=== PATIENT | male | born 1975 | race Caucasian/White ===

== ENCOUNTER 2022-06-20 12:35 | Emergency (ER) | payer OTHER, SELFPAY ==
[2022-06-20 12:51] VITALS: BP 202/127; PULSE 96; RESP 18; TEMP 37.1; O2SAT 97; BMI 46.7
--- NOTE | 2022-06-20 13:08 | CRLHL7_ITS ---
For Patients: As a result of the Century Cures Act, medical imaging exams and procedure reports are released immediately into your electronic medical record. You may view this report before your referring provider. If you have questions, please contact your health care provider. INDICATION: Left calf pain and swelling. TECHNIQUE: Ultrasound venous duplex lower left extremity. Compression venous exam was performed using slater-scale, color Doppler, and spectral Doppler analysis. COMPARISON: No prior. FINDINGS: DVT is present within the left femoral, popliteal, posterior tibial, peroneal and gastrocnemius veins. Superficial thrombus is present within the small saphenous vein more proximally. Left greater saphenous vein is patent. Contralateral right common femoral vein is patent. IMPRESSION: 1. DVT within the left femoral, popliteal, posterior tibial, peroneal and gastrocnemius veins. 2. Superficial thrombus within the left small saphenous vein - The diagnostic technologist discussed the findings with Dr. Allison following the conclusion of the study on 06/20/2022. Dictated by Toi Roper MD @ 06/20/2022 2:18:34 PM Dictated by: Toi Roper MD @ 06/20/2022 14:18:46 (Electronically Signed)
--- NOTE | 2022-06-20 14:34 | ED.GENADULT ---
HPI - General Adult General Chief complaint: Extremity Pain/Injury, Lower Stated complaint: LT calf pain Time Seen by Provider: 06/20/22 14:05 History of Present Illness HPI narrative: This 46-year-old male comes in with left leg pain and swelling. He states that this occurred about a week ago after he went for 2 or 3 minutes on a treadmill. He did not have any injury event and has not had any recent surgery. He has not had any prior symptoms or evidence of blood clot. He does not report chest pain or shortness of breath. Related Data Previous Rx's Medication Instructions Recorded apixaban 5 mg (74 tabs) tablets in See Rx Instructions PO .COMPLEX 06/20/22 a dose pack (Panizon DVT-PE Treat #74 ea 30D Start) Allergies Allergy/AdvReac Type Severity Reaction Status Date / Time general anesthesia Allergy malignant Uncoded 06/20/22 12:51 hypothermia Review of Systems Status of ROS: Reports: 10 or more systems reviewed and unremarkable except as noted in History and below Narrative: Constitutional: No fevers, no weight gain or loss. Eyes: No discharge. No vision changes. HENT: No congestion, no sore throat, no ear pain. Cardiovascular: No chest pain, no palpitations. Respiratory: No shortness of breath, no wheezes, no cough. Gastrointestinal: No abdominal pain, no vomiting, no diarrhea. Genitourinary: No dysuria, no hematuria. Musculoskeletal: Normal range of motion. Left leg swelling and pain. Skin: No rashes, no pruritis. Neurological: No dizziness, weakness, sensory change, speech change. Endo/Heme/Allergies: No bruising or bleeding. No polydipsia. Pysch: no suicidality, no anxiety, no insomnia. All other systems reviewed and are negative. Exam Narrative: Exam Narrative: Constitutional: Well-developed, well-nourished, no acute distress. HEENT: Normocephalic, atraumatic. Neck: Normal range of motion. Nontender. Supple. Heart: Regular. No murmurs. Normal rate. Intact distal pulses. Lungs: Clear to auscultation. No chest discomfort. No wheezes, rhonchi, or rales. Abdomen: Normal bowel sounds. Nontender. No rebound tenderness. Genitalia: Deferred. Back: No midline tenderness. Normal range of motion. Extremities: Normal range of motion. No injury. Left calf is larger compared to right with some erythema. Diffuse pain throughout the whole left leg. Skin: Intact. No rash. Warm. No erythema or pallor. Neurologic: No altered sensation. No weakness. Alert and oriented. Psychiatric: No suicidality. No anxiety or depression. No insomnia. Nursing notes and vitals signs are reviewed. Const: Vital Signs, click to edit/add: Vital Signs - 24 hr 06/20/22 12:51 Temperature 98.7 F Pulse Rate [Right Pulse Oximeter] 96 Respiratory Rate 18 Blood Pressure [Ri ght Upper Arm] 202/127 H Pulse Oximetry 97 Oxygen Delivery Me thod Room Air Course Vital Signs Vital signs: Initial Vital Signs Temperature 98.7 F 06/20/22 12:51 Temperature Source Temporal Artery Scan 06/20/22 12:51 Pulse Rate 96 06/20/22 12:51 Respiratory Rate 18 06/20/22 12:51 Blood Pressure 202/127 H 06/20/22 12:51 Blood Pressure Mean 152 06/20/22 12:51 Blood Pressure Position Sitting 06/20/22 12:51 Pulse Oximetry 97 06/20/22 12:51 Oxygen Delivery Method 06/20/22 12:51 Vital Signs Temperature 98.7 F 06/20/22 12:51 Pulse Rate 96 06/20/22 12:51 Respiratory Rate 18 06/20/22 12:51 Blood Pressure 202/127 H 06/20/22 12:51 Pulse Oximetry 97 06/20/22 12:51 Oxygen Delivery Method 06/20/22 12:51 Temperature 98.7 F 06/20/22 12:51 Pulse Rate 96 06/20/22 12:51 Respiratory Rate 18 06/20/22 12:51 Blood Pressure 202/127 H 06/20/22 12:51 Pulse Oximetry 97 06/20/22 12:51 Oxygen Delivery Method 06/20/22 12:51 Medical Decision Making MDM Narrative Medical decision making narrative: This patient comes in with left leg pain and swelling. A ultrasound of the left lower extremity does reveal occlusive clot from the groin down to his calf. He has normal vital signs except for elevated blood pressure. He does not report any chest pain or shortness of breath. I did discuss the role of CT imaging and in a process of shared decision making this test was declined. He did have lab draws to check for hypercoagulable state including Leiden factor 5, protein S and C, prothrombin gene mutation, and anti thrombin. These results are pending. The patient received an oral dose of Eliquis 10 mg and a prescription for the Eliquis starter pack. I advised him to follow-up with his primary physician or return if worsening symptoms occur. Discharge Plan Discharge Clinical Impression: Deep venous thrombosis Patient Disposition: Home, Self-Care Condition: Unchanged Additional Instructions: Take medication as prescribed. Follow up with MD within a few weeks. Return if worsening symptoms occur. Prescriptions: New Eliquis DVT-PE Treat 30D Start 5 mg (74 tabs) tablets,dose pack See Rx Instructions PO .COMPLEX Qty: 74 0RF Rx Instructions: orally per package directions Follow Up/Referrals: Rajesh Iverson MD [Primary Care Provider] - Stand Alone Forms: Michael Bieker Info Instructions
[2022-06-20] MEDS: APIXABAN 5 MG TABLET 10 MG PO (15:22)
[2022-06-23 15:12] LABS: Protein C Functional 129 % (83-168); Protein S Functional 133 % (66-143)
[2022-06-23 16:44] LABS: Antithrombin, Enzymatic 104 % (76-128)
[2022-06-25 15:35] LABS: FACV Specimen Whole Blood; Factor V Leiden (F5) Mutation Negative
[2022-06-25 19:55] LABS: PT PCR Specimen Whole Blood; Prothrombin(F2)G20210A Variant Negative
== END 2022-06-20 15:16 | disposition home or self-care (01) ==
PROVIDERS: Emergency Provider Emergency Medicine Emergency Medical Services; PCP Family Medicine
DX: I82.409 Acute embolism and thrombosis of unspecified deep veins of unspecified lower extremity (principal)
CPT/HCPCS: 36415; 81240; 81241; 85300; 85303; 85306; 93971; 99284; A9270

== ENCOUNTER 2022-07-16 09:05 | Outpatient (CLI) | payer OTHER, SELFPAY | END 2022-07-16 09:06 | disposition home or self-care (01) | LOC: NFLDREF 07-17 07:59 | PROVIDERS: PCP Family Medicine; Referring Provider Family Medicine; Visit Provider Family Medicine | DX: I10 Essential (primary) hypertension (principal); Z13.6 Encounter for screening for cardiovascular disorders | CPT/HCPCS: 80048; 80061 ==

== ENCOUNTER 2025-02-04 13:29 | Emergency (ER) | payer OTHER, SELFPAY ==
--- OUTSIDE RECORDS SUMMARY | 2025-02-01 09:20 | XMS_ITS | Encounter Summary ---
Author Organization [employer] [facility] [facility] Address [address] [place] [address] Care Team Providers Care Transfer Table Operator Helper Name Role Phone Unavailable Primary Care Provider Unavailabl e Reason for Referral * Procedure/Equipment (Routine) - Incomplete Specialty Diagnoses / Procedures Referred By Contac t Referred To Contact Diagnoses Arthralgia of right ankle Procedures XR Ankle Rt 3 Views Rodger Bob DO [address] [place] [address] [place] [address] Phone: tel: fax: Referral ID Status Reason Start Date Expiration Date V isits Requested Visits Authorized [id number] Incomplete 02/01/2025 05/03/2026 1 1 Reason for Visit * Reason Comments ANKLE PAIN Right ankle pain, re dness, swelling, started 01/31/25, no trauma Encounter Details Date Type Department Care Team (Late st Contact Info) Description 02/01/2025 9:20 AM CDT Office Visit [facility] [address] [place] [address] [place] [address] Rodger Bob DO 8100 [facility] [place] [address] Arthralgia of right ankle (Primary Dx); Right [...] 9:20 AM CDT Thank you for choosing [facility] for your health care visit today. If you have any questions regarding your visit or next steps, please contact us at [phone]. Rodger Bob, Medication Requests: Prescriptions are filled on Weekdays before 3:00PM For all medication refills: Request a refill using [employer] or contact your Pharmacy Paperwork Requests: FMLA or disability paperwork can be faxed to: [phone] Please allow 7-10 business days for completion of all paperwork. JOSE MANUEL Worker's Compensation Services: E-mail Address: [email or web address] What is Know Your Cost? Know Your Cost is a service for patients and patient/members to call and receive personalized cost information and estimates across our care group. The phone number is (COST) Tuesday - Tuesday 8 AM to 5 PM To request copies of your medical records, call: [phone] (option 4) Diagnosis: R ankle cellulitis vs [...] PM CDT Appointment [facility] [address] [place] [address] Rodger Bob DO [address] [place], [place] [address] [address] documented as of this encounter Procedures Procedure [...] - 7.2 mg/dL 02/04/2025 11:38 AM T [facility] Blood Venipuncture / Unknown 02/01/2025 10:04 AM CDT 02/01/2025 10:17 AM CDT us Kenny Abdul DO LAB_1 Final Result [facility] CLIA: [id number] [address] * (ABNORMAL) Complete Blood Count-W/Diff (02/01/2025 10:04 AM CDT) WBC 5.3 3.5 - 10.5 x10(9)/L 02/01/2025 10:55 AM [facility] RBC 5.46 4.32 - 5.72 x10(12)/L 02/01/2025 10:55 AM [facility] Hemoglobin 15.4 13.5 - 17.5 g/dL 02/01/2025 10:55 AM [facility] HCT 45.3 38.8 - 50.0 % 02/01/2025 10:55 AM [facility] MCV 83.0 80.0 - 100.0 fL 02/01/2025 10:55 AM [facility] MCH 28.2 27.6 - 33.3 pg 02/01/2025 10:55 AM [facility] MCHC 34.0 31.5 - 35.2 g/dL 02/01/2025 10:55 AM [facility] RDW 12.3 11.9 - 15.5 % 02/01/2025 10:55 AM [facility] Platelets 232 150 - 450 x10(9)/L 02/01/2025 10:55 AM [facility] Automated NRBC 0 <=0 /100 WBC 02/01/2025 10:55 AM [facility] Neutrophil Absolute 3.9 1.7 - 7.0 10(9)/L 02/01/2025 10:55 AM [facility] Lymphocyte Absolute 0.8(L) 1.0 - 4.8 10(9)/L 02/01/2025 10:55 AM [facility] Monocyte Absolute 0.5 0.2 - 0.9 10(9)/L 02/01/2025 10:55 AM [facility] Eosinophil Absolute 0.1 0.0 - 0.5 10(9)/L 02/01/2025 10:55 AM [facility] Basophil Absolute 0.0 0.0 - 0.3 10(9)/L 02/01/2025 10:55 AM [facility] Immature Granulocyte % 0.2 0.0 - 0.5 % 02/01/2025 10:55 AM [facility] Blood Venipuncture / Unknown 02/01/2025 10:04 AM CDT 02/01/2025 10:17 AM CDT us Soares G Rice DO LAB_1 Final Result [facility] CLIA: [id number] [address] * Sedimentation Rate (ESR) (02/01/2025 10:04 AM CDT) [facility] Sedimentation Rate 8 0 - 15 mm/hr 02/01/2025 11:34 AM T [facility] Blood Venipuncture / Unknown 02/01/2025 10:04 AM CDT 02/01/2025 10:17 AM CDT us Soares G Rice DO LAB_1 Final Result [facility] CLIA: [id number] 6500 [place] [address], [facility] * (ABNORMAL) Comp Metabolic Panel (02/01/2025 10:04 AM [facility]) Sodium 140 136 - 145 mmol/L 02/01/2025 11:18 AM [facility] Potassium 3.7 3.5 - 5.1 mmol/L 02/01/2025 11:18 AM [facility] Chloride 109 98 - 109 mmol/L 02/01/2025 11:18 AM [facility] CO2 22 20 - 29 mmol/L 02/01/2025 11:18 AM [facility] Anion Gap 9 6 - 16 mmol/L 02/01/2025 11:18 AM [facility] Calcium 9.3 8.4 - 10.4 mg/dL 02/01/2025 11:18 AM [facility] BUN 9 7 - 26 mg/dL 02/01/2025 11:18 AM [facility] Creatinine 0.72(L) 0.73 - 1.18 mg/dL 02/01/2025 11:18 AM [facility] Alkaline Phosphatase 51 40 - 150 U/L 02/01/2025 11:18 AM [facility] AST (SGOT) 24 16 - 46 U/L 02/01/2025 11:18 AM [facility] ALT (SGPT) 27 0 - 55 U/L 02/01/2025 11:18 AM [facility] Bilirubin, Total 0.8 0.2 - 1.2 mg/dL 02/01/2025 11:18 AM [facility] Protein, Total 7.2 6.4 - 8.3 g/dL 02/01/2025 11:18 AM [facility] Albumin 4.1 3.5 - 5.0 g/dL 02/01/2025 11:18 AM [facility] Glucose 92 70 - 100 mg/dL 02/01/2025 11:18 AM [facility] Comment:The given reference range is for the fasting state. Non-fasting reference range for glucose is 70 - 180 mg/dL. GFR, Estimated >60 >60 mL/min/1.7 3m2 02/01/2025 11:18 AM CDT [facility] Hours Fasting 2,130.0 8 - 12 Hours 02/01/2025 11:18 AM CDT [facility] Comment:01/31/2025 Blood Venipuncture / Unknown 02/01/2025 10:04 AM CDT 02/01/2025 10:17 AM CDT us Rodger Bob DO LAB_1 Final Result [facility] CLIA: [id number] [address] [employer] [address] * XR Ankle Rt 3 Views [...]
--- OUTSIDE RECORDS SUMMARY | 2025-02-01 09:35 | XMS_ITS | Encounter Summary ---
Author Organization [facility] Address [address] [place] [address] Care Team Providers Care Search Engine Marketing Specialist Name Role Phone Unavailable Primary Care Provider Unavailabl e Reason for Visit * Procedure/Equipment (Routine) - Incomplete Specialty Diagnoses / Procedures Referred By Contac t Referred To Contact Diagnoses Arthralgia of right ankle Procedures XR Ankle Rt 3 Views Rodger Bob DO [address] [place] [address] [place] [address] Phone: tel: fax: Referral ID Status Reason Start Date Expiration Date V isits Requested Visits Authorized [id number] Incomplete 02/01/2025 05/03/2026 1 1 Encounter Details Date Type Department Care Team (Late st Contact Info) Description 02/01/2025 9:35 AM CDT Ancillary Procedure [facility] [address] [place] [address] Rodger Bob DO [address] [facility] [place] [address] Arthralgia of right ankle Social History Tobacco Use Types Packs/Day Years Used Date Smoking Tobacco: Never Sex and Gender Information Value Date Recorded Sex Assigned at Not on file Legal Sex Male 5:34 AM CDT Gender Identity Not on file Sexual Orientation Not on file documented as of this encounter Plan of Treatment Upcoming Encounters Date Type Department Care Team (Late st Contact Info) Description 02/08/2025 1:30 PM CDT Appointment [facility] [address] [place] [address] Rodger Bob DO [address] [facility] [address] [place], [place] [address] documented as of this encounter Procedures Procedure [...]
--- OUTSIDE RECORDS SUMMARY | 2025-02-04 13:32 | XMS_ITS | Encounter Summary ---
Author Organization [employer] Address [address] [place] [address] Care Team Providers Care Skip Load Driver Name Role Phone Unavailable Primary Care Provider Unavailabl e Reason for Visit * Reason Comments RESULTS, TEST Encounter Details Date Type Department Care Team (Late st Contact Info) Description 02/01/2025 Telephone [facility] [address] [address] Rodger Bob, DO [address] [place] [address] RESULTS, TEST Social History Tobacco Use Types Packs/Day Years Used Date Smoking Tobacco: Never Sex and Gender Information Value Date Recorded Sex Assigned at Not on file Legal Sex Male 5:34 AM CDT Gender Identity Not on file Sexual Orientation Not on file documented as of this encounter Progress Notes * Deedee Wells RN - 02/04/2025 11:24 AM CDTAddended by: DEEDEE WELLS on: 02/04/2025 11:24 AM Modules accepted: Orders documented in this encounter Nursing Notes * Deedee Wells RN - 02/04/2025 11:55 AM CDT Images from the original note were not included. Uric acid level is normal. Tariq was informed of this. Pt to f/u in one week if pain and swelling of right ankle hasn't subsided. Enmanuel;t has been made for 02/08/2025 @ [address] Bob at the [facility]. Also, Pt understands that if he should develop an oral temperature greater than 100. 4 degrees, have increased swelling, redness, warmth to touch or increased pain, to come back in the our AIC/ER. Uric Acid (Unit Collect) Order: [id number] Status: Final result Dx: Pain and swelling of right ankle Test Result Released: Yes (not seen) Component Ref Range & Units 3 d ago Uric Acid 3.5 - 7.2 mg/dL 4.5 Resulting Agency [facility] Specimen Collected: 02/01/25 10:04 Last Resulted: 02/04/25 11:38 * Deedee Wells RN - 02/04/2025 11:23 AM CDT [facility] T[facility] spoke with Jaimie at the [facility]. They are able to add the uric acid lab to the other labs he had done on 02/01/2025. They keep blood for 5 days from when drawn. Will wait for the lab results. * Deedee Wells RN - 02/04/2025 10:[address] Bob is in house on 02/08/2025. Pt RCTC today stating the swelling has not gone down and pain is the same. Labs that were drawn were wnl. Pt questions why a uric acid level wasn't drawn as this father and grandfather both have gouty arthritis. May underwriter place this order?Advise. Pt understands that if he should develop an oral temperature greater than 100. 4 degrees, have increased swelling, redness, warmth to touch or increased pain, to come back in the our AIC/ER. 02/01/2025 Assessment: ICD-10-CM 1. Arthralgia of right ankle [...] [facility] * Danielle Agosto - 02/04/2025 10:04 AM CDT Patient calling back. Swelling has not gone down and pain is the same. * Olga Smith ATC - 02/01/2025 12:59 PM CDT LMTCB regarding results of labs and future plan. -No infection -Continue Mobic -F/u 7-10 days documented in this encounter Plan of Treatment Upcoming Encounters Date Type Department Care Team (Late st Contact Info) Description 02/08/2025 1:30 PM CDT Appointment [facility] [place] [address] [place], [place] [address] Rodger Bob DO [address] [facility] [place] [id number] documented as of this encounter Results * Uric Acid (Unit Collect) (02/01/2025 10:04 AM CDT) Uric Acid 4.5 3.5 - 7.2 mg/dL 02/04/2025 11:38 AM CDT [facility] Blood Venipuncture / Unknown 02/01/2025 10:04 AM CDT 02/01/2025 10:17 AM CDT us Kenny Abdul DO LAB_1 Final Result [facility] CLIA: [id number] [address] [place] [address], [facility] documented in this encounter Visit Diagnoses Diagnosis Pain and swelling of right ankle- Primary documented in this encounter
--- OUTSIDE RECORDS SUMMARY | 2025-02-04 13:32 | XMS_ITS | Clinical Summary ---
Author Organization [employer] Address [address] [place] [address] Care Team Providers Care Lock Master Name Role Phone Unavailable Primary Care Provider Unavailabl e Source Comments You are receiving this document as you are listed as the primary care provider,follow-up provider, or the patient has been referred to you for consultation.This is in compliance with the Medicare and[facility] EHR Incentive Program,which states Providers who transition their patient to another setting of careor provider of care or refers their patient to another provider of care shouldprovide summary care record for each transition of care or referral. [employer] Allergies Active Allergy Reactions Criticality Noted Date Comments Other 01/21/2008 PN: LW Other1: -Anectine- Medications unknown medication Indications: PN: 8 Active methylPREDNISolon e (MEDROL 21 TABLET DOSEPACK) 4 MG tabletIndications :Right lumbar radiculopathy Follow package directions 21 Tablet 5 Active Additional Information Patient not taking.Reported on 02/01/2025 Meloxicam (MOBIC) 15 MG tabletIndications :Arthralgia of right ankle,Right ankle swelling Take 1 Tablet (15 mg) by mouth daily for 14 days. 14 Tablet 5 025 Active Active Problems Problem Noted Date Diagnosed Date Allergic rhinitis 12/13/2003 Overview (12/15/2016): LW Onset: [id number] ; Rhinitis Allergic NOS Encounters Date Type Department Care Team Description 02/01/2025 9:35 AM CDT Ancillary Procedure [facility] [address] [place] [address] Rodger Bob DO Arthralgia of right ankle 02/01/2025 9:20 AM CDT Office Visit [facility] [place] [address] [place] [address] [place] [address] Rodger Bob DO Arthralgia of right ankle (Primary Dx); Right ankle swelling; Pain and swelling of right ankle 02/01/2025 Telephone [facility] [address] [address] Rodger Bob DO RESULTS, TEST 12/03/2024 Refill [facility] [address] [address] Chandler Denney MD Refill from Last 3 Months Social History Tobacco Use Types Packs/Day Years Used Date Smoking Tobacco: Never Sex and Gender Information Value Date Recorded Sex Assigned at Not on file Legal Sex Male 5:34 AM CDT Gender Identity Not on file Sexual Orientation Not on file Last Filed Vital Signs Vital Sign Reading Time Taken Comments Blood Pressure 147/92 01/21/2008 8:13 AM CDT Pulse 105 01/21/2008 8:13 AM CDT Temperature 36.7 C (98.1 F) 02/01/2025 9:26 AM CDT Respiratory Rate 16 01/21/2008 8:13 AM CDT Oxygen Saturation - - Inhaled Oxygen Concentration - - Weight 158.8 kg (350 lb) 02/01/2025 9:26 AM CDT Height 180.3 cm (5' 11) 02/01/2025 9:26 AM CDT Body Mass Index 48.82 02/01/2025 9:26 AM CDT Plan of Treatment Upcoming Encounters Date Type Department Care Team (Late st Contact Info) Description 02/08/2025 1:30 PM CDT Appointment [facility] [place] [address] [place] [address] [place] [address] Rodger Bob DO [address] [facility] [place] [address] Health Maintenance Due Date Last Done Comments Colon Cancer Screening Plan Due 1977 Hep C Screening (Preventive Services) 1977 HIV Screening (Preventive Services) 1993 Adult Preventive Visit 12/31/1995 DTaP/Tdap/Td Vaccine (1 - Tdap) 1996 HepB Vaccine (1) 1996 Cholesterol 2012 COVID-19 Vaccine (1 - 2023-2 5 season) 2024 Influenza Vaccine (#1) 2024 Zoster/Shingles Vaccine (1 of 2) 12/31/2027 Diabetes Screening- (based o n age and BMI) 02/02/2028 02/01/2025 HepA Vaccine Aged Out No longer eligi ble based on patient's age to complete this topic Hib Vaccine Aged Out No longer eligi ble based on patient's age to complete this topic IPV (Polio) Vaccine Aged Out No longe r eligible based on patient's age to complete this topic MCV4 Vaccine Aged Out No longer eligi ble based on patient's age to complete this topic Meningococcal B Vaccine Aged Out No l onger eligible based on patient's age to complete this topic Pneumococcal Vaccine Aged Out No long er eligible based on patient's age to complete this topic Procedures Procedure Name Priority Date/Time Associated Diagnosis Comments URIC ACID Routine 02/01/2025 10:04 AM CDT Pain and swelling of right ankle COMPLETE BLOOD COUNT-W/DIFF Routine 02/01/2025 10:04 AM CDT Arthralgia of right ankle Right ankle swelling SEDIMENTATION RATE (ESR) Routine 02/01/2025 10:04 AM CDT Arthralgia of right ankle Right ankle swelling COMPREHENSIVE METABOLIC PANEL Routine 02/01/2025 10:04 AM CDT Arthralgia of right ankle Right ankle swelling CBC AND DIFFERENTIAL PANEL Routine 02/01/2025 10:04 AM CDT Arthralgia of right ankle Right ankle swelling XR ANKLE RT 3 VIEWS Routine 02/01/2025 9 :37 AM CDT Arthralgia of right ankle from Last 3 Months Results * (ABNORMAL) Complete Blood Count-W/Diff (02/01/2025 10:04 AM CDT) WBC 5.3 3.5 - 10.5 x10(9)/L 02/01/2025 10:[address] [facility] RBC 5.46 4.32 - 5.72 x10(12)/L 02/01/2025 10:[address] [facility] Hemoglobin 15.4 13.5 - 17.5 g/dL 02/01/2025 10:[address] [facility] HCT 45.3 38.8 - 50.0 % 02/01/2025 10:[address] [facility] MCV 83.0 80.0 - 100.0 fL 02/01/2025 10:[address] [facility] MCH 28.2 27.6 - 33.3 pg 02/01/2025 10:[address] [facility] MCHC 34.0 31.5 - 35.2 g/dL 02/01/2025 10:[address] [facility] RDW 12.3 11.9 - 15.5 % 02/01/2025 10:[address] [facility] Platelets 232 150 - 450 x10(9)/L 02/01/2025 10:[address] [facility] Automated NRBC 0 <=0 /100 WBC 02/01/2025 10:[address] [facility] Neutrophil Absolute 3.9 1.7 - 7.0 10(9)/L 02/01/2025 10:[address] [facility] Lymphocyte Absolute 0.8(L) 1.0 - 4.8 10(9)/L 02/01/2025 10:[address] [facility] Monocyte Absolute 0.5 0.2 - 0.9 10(9)/L 02/01/2025 10:[address] [facility] Eosinophil Absolute 0.1 0.0 - 0.5 10(9)/L 02/01/2025 10:[address] [facility] Basophil Absolute 0.0 0.0 - 0.3 10(9)/L 02/01/2025 10:[address] [facility] Immature Granulocyte % 0.2 0.0 - 0.5 % 02/01/2025 10:[address] [facility] Blood Venipuncture / Unknown 02/01/2025 10:04 AM CDT 02/01/2025 10:17 AM CDT us Rodger Cruz Paulino DO LAB_1 Final Result [facility] CLIA: [id number] [address] * (ABNORMAL) Comp Metabolic Panel (02/01/2025 10:04 AM CDT) Sodium 140 136 - 145 mmol/L 02/01/2025 11:[address] [facility] Potassium 3.7 3.5 - 5.1 mmol/L 02/01/2025 11:[address] [facility] Chloride 109 98 - 109 mmol/L 02/01/2025 11:[address] [facility] CO2 22 20 - 29 mmol/L 02/01/2025 11:[address] [facility] Anion Gap 9 6 - 16 mmol/L 02/01/2025 11:[address] [facility] Calcium 9.3 8.4 - 10.4 mg/dL 02/01/2025 11:[address] [facility] BUN 9 7 - 26 mg/dL 02/01/2025 11:[address] [facility] Creatinine 0.72(L) 0.73 - 1.18 mg/dL 02/01/2025 11:[address] [facility] Alkaline Phosphatase 51 40 - 150 U/L 02/01/2025 11:[address] [facility] AST (SGOT) 24 16 - 46 U/L 02/01/2025 11:[address] [facility] ALT (SGPT) 27 0 - 55 U/L 02/01/2025 11:[address] [facility] Bilirubin, Total 0.8 0.2 - 1.2 mg/dL 02/01/2025 11:[address] [facility] Protein, Total 7.2 6.4 - 8.3 g/dL 02/01/2025 11:[address] [facility] Albumin 4.1 3.5 - 5.0 g/dL 02/01/2025 11:[address] [facility] Glucose 92 70 - 100 mg/dL 02/01/2025 11:[address] [facility] Comment:The given reference range is for the fasting state. Non-fasting reference range for glucose is 70 - 180 mg/dL. GFR, Estimated >60 >60 mL/min/1.7 3m2 02/01/2025 11:[address] [facility] Hours Fasting 2,130.0 8 - 12 Hours 02/01/2025 11:[address] [facility] Comment:01/31/2025 Blood Venipuncture / Unknown 02/01/2025 10:04 AM CDT 02/01/2025 10:17 AM CDT us Rodger Bob DO LAB_1 Final Result Performing Organization Address [facility] Co de Phone Number [facility] CLIA: [id number] [facility] [address] * Uric Acid (Unit Collect) (02/01/2025 10:04 AM CDT) Uric Acid 4.5 3.5 - 7.2 mg/dL 02/04/2025 11:38 AM T [facility] Blood Venipuncture / Unknown 02/01/2025 10:04 AM CDT 02/01/2025 10:17 AM CDT us Kenny Abdul DO LAB_1 Final Result Performing Organization Address City/[facility]/ZIP Co de Phone Number [facility] CLIA: [id number] [address] * Sedimentation Rate (ESR) (02/01/2025 10:04 AM CDT) Sedimentation Rate 8 0 - 15 mm/hr 02/01/2025 11:34 AM CDT [facility] Blood Venipuncture / Unknown 02/01/2025 10:04 AM CDT 02/01/2025 10:17 AM CDT Rodger Bob DO LAB_1 Final Result [facility] CLIA: [id number] [address] [place], [place] [address] * XR Ankle Rt 3 Views (02/01/2025 [...] Rodger Bob DO RAD GD Final Result from Last 3 Months Insurance [facility]
--- OUTSIDE RECORDS SUMMARY | 2025-02-04 13:32 | XMS_ITS | Encounter Summary ---
Author Organization [employer] Address [address] [place] [address] Care Team Providers Care Tieing Machine Operator Name Role Phone Unavailable Primary Care Provider Unavailabl e Reason for Visit * Reason Comments Refill Encounter Details Date Type Department Care Team (Late st Contact Info) Description 12/03/2024 Refill [facility] [address] [address] Chandler Denney MD [address] [place] [phone] Refill Social History Tobacco Use Types Packs/Day Years Used Date Smoking Tobacco: Never Sex and Gender Information Value Date Recorded Sex Assigned at Not on file Legal Sex Male 5:34 AM CDT Gender Identity Not on file Sexual Orientation Not on file documented as of this encounter Nursing Notes * Malena Enriquez RN - 12/03/2024 4:16 PM CDT Tanisha Potter, We received a refill request for cyclobenzaprine from your pharmacy. Please advise if you are stilltaking this medication and would like a refill. If so, please provide an update on your current symptoms. I will then route this update and request to the provider and get back to you with their response. If you are no longer taking this medication, please contact your pharmacy to have this medication removed from your medication list. Thank you, RAUL Dooley documented in this encounter Plan of Treatment Upcoming Encounters Date Type Department Care Team (Late st Contact Info) Description 02/08/2025 1:30 PM CDT Appointment [facility] [place] [address] [facility] [address] Rodger Bob DO [address] [facility] [place] [address] documented as of this encounter Visit Diagnoses Diagnosis Right lumbar radiculopathy Thoracic or lumbosacral neuritis or radiculitis, unspecified documented in this encounter
[2025-02-04 13:37] VITALS: BP 194/103; PULSE 109; RESP 18; TEMP 37.1; O2SAT 97; BMI 50.2
--- NOTE | 2025-02-04 14:23 | ED.GENADULT ---
HPI - General Adult General Date Seen: 02/04/25 Chief complaint: Extremity Pain/Injury, Lower Stated complaint: R ankle pain Time Seen by Provider: 02/04/25 14:11 History of Present Illness HPI narrative: Patient is a 49-year-old with underlying obesity and hypertension, who developed right ankle pain and swelling last week. He saw somebody at [facility] on Tuesday, he had a number of blood test done which were unremarkable. He says that he had an x-ray as well which was normal. He says that the person he thought they were told him it could not be gout because his uric acid was normal, but he notes a strong family history of gout and still wonders if it might be that. He has not had fevers or chills, no other systemic complaints. No injury. He does have a history of DVT a couple of years ago but is no longer anticoagulated. He does not have any calf pain. Related Data Home Medications ?Medication ?Instructions ?Recorded ?Confirmed meloxicam 15 mg tablet 15 mg PO DAILY 02/04/25 02/04/25 Previous Rx's ?Medication ?Instructions ?Recorded apixaban 5 mg (74 tabs) tablets in See Rx Instructions PO .COMPLEX 06/20/22 a dose pack (Eliquis DVT-PE Treat #74 ea 30D Start) apixaban 5 mg tablet (Eliquis) 5 mg PO BID #60 tabs 07/02/22 losartan 100 mg tablet 100 mg PO QDAY #90 tabs 07/02/22 chlorthalidone 50 mg tablet 50 mg PO QDAY #90 tabs 05/09/23 Allergies Allergy/AdvReac Type Severity Reaction Status Date / Time lisinopril Allergy Intermediate truncal Verified 07/02/22 07:37 [place] Allergy malignant Uncoded 07/02/22 07:37 hypothermia Review of Systems Status of ROS: Reports: 6 or more systems reviewed and unremarkable except as noted in History and below [facility] Surgical History History of vasectomy (04/14/12) ?Z98.52 - Vasectomy status (ICD-10) History of tonsillectomy (08/04/09) ?Z90.89 - Acquired absence of other organs (ICD-10) Social History Smoking Status: Never smoker Do you use any of these nicotine containing products: None Second hand tobacco smoke exposure: No How often do you have a drink containing alcohol: never How often do you have six or more drinks on one occasion: Never AUDIT-C Alcohol total score: 0 Non-prescribed substance use: denies use service: No Exam Narrative: Exam Narrative: Vital signs reviewed, hypertensive In general, alert, well-appearing man. He is overweight. Extremities: The right lower extremity is notable for effusion at the ankle with some associated erythema particularly medially. No significant warmth. His foot appears normal, dorsalis pedis pulses normal, distal CMS intact. He does not have any tenderness or swelling of the leg more proximally. He tolerates passive range of motion in the ankle reasonably well although he says if I push it too hard it starts to hurt. Active range of motion is more painful. Const: Vital Signs, click to edit/add: Vital Signs - 24 hr 02/04/25 13:37 Temperature 98.8 F Pulse Rate [Pulse Oximeter] 109 H Respiratory Rate 18 Blood Pressure [Ri ght Upper Arm] 194/103 H Pulse Oximetry 97 Oxygen Delivery Me thod Room Air Course Course ED Course: I reviewed his labs from [facility] 2 days ago. His white blood cell count and sed rate were normal at that time. Remainder of his labs were normal as well including a comprehensive metabolic panel. Overall, I think gout is certainly a strong possibility as a cause for his symptoms. I recommended that we try to aspirate the joint and sent some fluid off. Discussed that I cannot entirely rule out infection as a cause for his symptoms. He says that he hates needles and has no interest in having the joint aspirated, in fact he says he printed out his lab results from [facility] so that he would have to have another blood draw. Reviewed with him that the treatment for gout would typically be steroids, which could make an infection worse by blunting his immune response. Nonetheless, he would like to proceed with a trial of that. He understands that if he is worsening at all he should come back right away. He was prescribed meloxicam, he can continue to take that as well as Tylenol. He has a boot at home as well, he did not use it when driving here because he can not drive when it is on, but he does say that he has been wearing it when he is up and around. I would continue that. Based on his exam this does not appear to be consistent with DVT. Vital Signs Vital signs: Initial Vital Signs Temperature 98.8 F 02/04/25 13:37 Temperature Source Temporal Artery Scan 02/04/25 13:37 Pulse Rate 109 H 02/04/25 13:37 Respiratory Rate 18 02/04/25 13:37 Blood Pressure 194/103 H 02/04/25 13:37 Blood Pressure Mean 133 H 02/04/25 13:37 Blood Pressure Position Sitting 02/04/25 13:37 Pulse Oximetry 97 02/04/25 13:37 Oxygen Delivery Method Room Air 02/04/25 13:37 Vital Signs Temperature 98.8 F 02/04/25 13:37 Pulse Rate 109 H 02/04/25 13:37 Respiratory Rate 18 02/04/25 13:37 Blood Pressure 194/103 H 02/04/25 13:37 Pulse Oximetry 97 02/04/25 13:37 Oxygen Delivery Method Room Air 02/04/25 13:37 Temperature 98.8 F 02/04/25 13:37 Pulse Rate 109 H 02/04/25 13:37 Respiratory Rate 18 02/04/25 13:37 Blood Pressure 194/103 H 02/04/25 13:37 Pulse Oximetry 97 02/04/25 13:37 Oxygen Delivery Method Room Air 02/04/25 13:37 Discharge Plan Discharge Clinical Impression: Ankle pain Patient Disposition: Home, Self-Care Condition: Stable Additional Instructions: I suspect her symptoms are due to gout, but as we discussed, we have not ruled out the possibility of infection as a cause of your ankle pain. Without obtaining a sample of joint fluid, it is impossible to entirely no. For now, we have decided to try a course of prednisone and see if you improved. You can continue to take meloxicam as well as Tylenol 1000 mg 3 times daily. If you are worsening on this regimen, you need to come back to the emergency department right away. This would include increasing swelling, increasing pain, increasing redness or temperature greater than 100.4. If you improved but have recurrent episodes, long-term treatment for gout may be indicated, see primary care for ongoing concerns. Prescriptions: No Action Eliquis 5 mg tablet 5 mg PO BID Qty: 60 8RF losartan 100 mg tablet 100 mg PO QDAY Qty: 90 3RF Eliquis DVT-PE Treat 30D Start 5 mg (74 tabs) tablets,dose pack See Rx Instructions PO .COMPLEX Qty: 74 0RF Rx Instructions: orally per package directions meloxicam 15 mg tablet 15 mg PO DAILY chlorthalidone 50 mg tablet 50 mg PO QDAY Qty: 90 0RF Follow Up/Referrals: Rajesh Iverson MD [Primary Care Provider, Family Practice] Stand Alone Forms: [employer] Info Instructions
== END 2025-02-04 15:10 | disposition home or self-care (01) ==
LOC: ED 14:26
PROVIDERS: Emergency Provider Emergency Medicine; PCP Family Medicine
DX: M25.571 Pain in right ankle and joints of right foot (principal)
CPT/HCPCS: 99283; 99284

== ENCOUNTER 2025-02-06 10:12 | Emergency (ER) | payer OTHER, SELFPAY ==
--- OUTSIDE RECORDS SUMMARY | 2025-02-01 09:20 | XMS_ITS | Encounter Summary ---
Author Organization [facility] Address [address] [place] [address] Care Team Providers Care Mooner Name Role Phone Unavailable Primary Care Provider Unavailabl e Reason for Referral * Procedure/Equipment (Routine) - Incomplete Specialty Diagnoses / Procedures Referred By Contac t Referred To Contact Diagnoses Arthralgia of right ankle Procedures XR Ankle Rt 3 Views Rodger Bob DO [address] [place] [address] [place] [address] Phone: tel: fax: Referral ID Status Reason Start Date Expiration Date V isits Requested Visits Authorized [id number] Incomplete 02/01/2025 05/03/2026 1 1 Reason for Visit * Reason Comments ANKLE PAIN Right ankle pain, re dness, swelling, started 01/31/25, no trauma Encounter Details Date Type Department Care Team (Late st Contact Info) Description 02/01/2025 9:20 AM CDT Office Visit [facility] [address] [place] [address] [place] [address] Rodger Bob DO [address] [facility] [place] [address] Arthralgia of right ankle (Primary Dx); Right [...] 9:20 AM CDT Thank you for choosing [facility] for your health care visit today. If you have any questions regarding your visit or next steps, please contact us at [phone]. Rodger Bob, Medication Requests: Prescriptions are filled on Weekdays before 3:00PM For all medication refills: Request a refill using [employer] or contact your Pharmacy Paperwork Requests: FMLA or disability paperwork can be faxed to: [phone] Please allow 7-10 business days for completion of all paperwork. JOSE MANUEL Worker's Compensation Services: E-mail Address: [email or web address] What is Know Your Cost? Know Your Cost is a service for patients and patient/members to call and receive personalized cost information and estimates across our care group. The phone number is (COST) Tuesday - Tuesday 8 AM to 5 PM To request copies of your medical records, call: [phone] (option 4) Diagnosis: R ankle cellulitis vs [...] and was agreeable with no further questions. Rodger Bob DO [facility] documented in this encounter Plan of Treatment Upcoming Encounters Date Type Department Care Team (Late st Contact Info) Description 02/08/2025 1:30 PM CDT Appointment [facility] [address] [place] [address] Rodger Bob DO [address] [place], [place] [address] [address] documented as of this encounter Procedures Procedure [...] 3.5 - 7.2 mg/dL 02/04/2025 11:38 AM T [facility] Blood Venipuncture / Unknown 02/01/2025 10:04 AM CDT 02/01/2025 10:17 AM CDT us Kenny Abdul DO LAB_1 Final Result [facility] CLIA: [id number] [address] * (ABNORMAL) Complete Blood Count-W/Diff (02/01/2025 10:04 AM CDT) WBC 5.3 3.5 - 10.5 x10(9)/L 02/01/2025 10:55 AM [facility] RBC 5.46 4.32 - 5.72 x10(12)/L 02/01/2025 10:55 AM [facility] Hemoglobin 15.4 13.5 - 17.5 g/dL 02/01/2025 10:55 AM [facility] HCT 45.3 38.8 - 50.0 % 02/01/2025 10:55 AM [facility] MCV 83.0 80.0 - 100.0 fL 02/01/2025 10:55 AM [facility] MCH 28.2 27.6 - 33.3 pg 02/01/2025 10:55 AM [facility] MCHC 34.0 31.5 - 35.2 g/dL 02/01/2025 10:55 AM [facility] RDW 12.3 11.9 - 15.5 % 02/01/2025 10:55 AM [facility] Platelets 232 150 - 450 x10(9)/L 02/01/2025 10:55 AM [facility] Automated NRBC 0 <=0 /100 WBC 02/01/2025 10:55 AM [facility] Neutrophil Absolute 3.9 1.7 - 7.0 10(9)/L 02/01/2025 10:55 AM [facility] Lymphocyte Absolute 0.8(L) 1.0 - 4.8 10(9)/L 02/01/2025 10:55 AM [facility] Monocyte Absolute 0.5 0.2 - 0.9 10(9)/L 02/01/2025 10:55 AM [facility] Eosinophil Absolute 0.1 0.0 - 0.5 10(9)/L 02/01/2025 10:55 AM [facility] Basophil Absolute 0.0 0.0 - 0.3 10(9)/L 02/01/2025 10:55 AM [facility] Immature Granulocyte % 0.2 0.0 - 0.5 % 02/01/2025 10:55 AM [facility] Blood Venipuncture / Unknown 02/01/2025 10:04 AM CDT 02/01/2025 10:17 AM CDT us Soares G Rice DO LAB_1 Final Result [facility] CLIA: [id number] [address] * Sedimentation Rate (ESR) (02/01/2025 10:04 AM CDT) [facility] Sedimentation Rate 8 0 - 15 mm/hr 02/01/2025 11:34 AM T [facility] Blood Venipuncture / Unknown 02/01/2025 10:04 AM CDT 02/01/2025 10:17 AM CDT us Soares G Rice DO LAB_1 Final Result [facility] CLIA: [id number] 6500 [place] [address], [facility] * (ABNORMAL) Comp Metabolic Panel (02/01/2025 10:04 AM [facility]) Sodium 140 136 - 145 mmol/L 02/01/2025 11:18 AM [facility] Potassium 3.7 3.5 - 5.1 mmol/L 02/01/2025 11:18 AM [facility] Chloride 109 98 - 109 mmol/L 02/01/2025 11:18 AM [facility] CO2 22 20 - 29 mmol/L 02/01/2025 11:18 AM [facility] Anion Gap 9 6 - 16 mmol/L 02/01/2025 11:18 AM [facility] Calcium 9.3 8.4 - 10.4 mg/dL 02/01/2025 11:18 AM [facility] BUN 9 7 - 26 mg/dL 02/01/2025 11:18 AM [facility] Creatinine 0.72(L) 0.73 - 1.18 mg/dL 02/01/2025 11:18 AM [facility] Alkaline Phosphatase 51 40 - 150 U/L 02/01/2025 11:18 AM [facility] AST (SGOT) 24 16 - 46 U/L 02/01/2025 11:18 AM [facility] ALT (SGPT) 27 0 - 55 U/L 02/01/2025 11:18 AM [facility] Bilirubin, Total 0.8 0.2 - 1.2 mg/dL 02/01/2025 11:18 AM [facility] Protein, Total 7.2 6.4 - 8.3 g/dL 02/01/2025 11:18 AM [facility] Albumin 4.1 3.5 - 5.0 g/dL 02/01/2025 11:18 AM [facility] Glucose 92 70 - 100 mg/dL 02/01/2025 11:18 AM [facility] Comment:The given reference range is for the fasting state. Non-fasting reference range for glucose is 70 - 180 mg/dL. GFR, Estimated >60 >60 mL/min/1.7 3m2 02/01/2025 11:18 AM CDT [facility] Hours Fasting 2,130.0 8 - 12 Hours 02/01/2025 11:18 AM CDT [facility] Comment:01/31/2025 Blood Venipuncture / Unknown 02/01/2025 10:04 AM CDT 02/01/2025 10:17 AM CDT us Rodger Bob DO LAB_1 Final Result [facility] CLIA: [id number] [address] * XR Ankle Rt 3 Views [...]
--- OUTSIDE RECORDS SUMMARY | 2025-02-01 09:35 | XMS_ITS | Encounter Summary ---
Author Organization [facility] Address [address] [place] [address] Care Team Providers Care Maintenance Service Supervisor Name Role Phone Unavailable Primary Care Provider Unavailabl e Reason for Visit * Procedure/Equipment (Routine) - Incomplete Specialty Diagnoses / Procedures Referred By Contac t Referred To Contact Diagnoses Arthralgia of right ankle Procedures XR Ankle Rt 3 Views Rodger Bob DO [address] [place] [address] [place] [address] Phone: tel: fax: Referral ID Status Reason Start Date Expiration Date V isits Requested Visits Authorized [id number] Incomplete 02/01/2025 05/03/2026 1 1 Encounter Details Date Type Department Care Team (Late st Contact Info) Description 02/01/2025 9:35 AM CDT Ancillary Procedure [facility] [address] [place] [address] Rodger Bob DO [address] [facility] [place] [address] Arthralgia of right ankle Social History Tobacco [...] PM CDT Appointment [facility] [place] [address] [place] [address] Rodger Bob DO [address] [facility] [address] [place], [place] [address] documented as of this encounter Procedures Procedure [...]
--- OUTSIDE RECORDS SUMMARY | 2025-02-06 10:15 | XMS_ITS | Clinical Summary ---
Author Organization [employer] Address [address] [place] [address] Care Team Providers Care Stock Counter Name Role Phone Unavailable Primary Care Provider Unavailabl e Source Comments You are receiving this document as you are listed as the primary care provider,follow-up provider, or the patient has been referred to you for consultation.This is in compliance with the Medicare and[facility] EHR Incentive Program,which states Providers who transition their patient to another setting of careor provider of care or refers their patient to another provider of care shouldprovide summary care record for each transition of care or referral. [employer] Allergies Active Allergy Reactions Criticality Noted Date [...] Allergic rhinitis 12/13/2003 Overview (12/15/2016): LW Onset: [id number] ; Rhinitis Allergic NOS Encounters Date Type Department Care Team Description 02/01/2025 9:35 AM CDT Ancillary Procedure [facility] [address] [place] [address] Rodger Bob DO Arthralgia of right ankle 02/01/2025 9:20 AM CDT Office Visit [facility] [place] [address] [place] [address] [place] [address] Rodger Bob DO Arthralgia of right ankle (Primary Dx); Right ankle swelling; Pain and swelling of right ankle 02/01/2025 Telephone [facility] [address] [address] Rodger Bob DO RESULTS, TEST 12/03/2024 Refill [facility] [address] [address] Chandler Denney MD Refill from Last 3 [...] PM CDT Appointment [facility] [place] [address] [place] [address] [place] [address] Rodger Bob DO [address] [facility] [place] [address] Health Maintenance Due Date Last Done Comments [...] 3.5 - 10.5 x10(9)/L 02/01/2025 10:55 AM [facility] RBC 5.46 4.32 - 5.72 x10(12)/L 02/01/2025 10:55 AM [facility] Hemoglobin 15.4 13.5 - 17.5 g/dL 02/01/2025 10:55 AM [facility] HCT 45.3 38.8 - 50.0 % 02/01/2025 10:55 AM [facility] MCV 83.0 80.0 - 100.0 fL 02/01/2025 10:55 AM [facility] MCH 28.2 27.6 - 33.3 pg 02/01/2025 10:55 AM [facility] MCHC 34.0 31.5 - 35.2 g/dL 02/01/2025 10:55 AM [facility] RDW 12.3 11.9 - 15.5 % 02/01/2025 10:55 AM [facility] Platelets 232 150 - 450 x10(9)/L 02/01/2025 10:55 AM [facility] Automated NRBC 0 <=0 /100 WBC 02/01/2025 10:55 AM [facility] Neutrophil Absolute 3.9 1.7 - 7.0 10(9)/L 02/01/2025 10:55 AM [facility] Lymphocyte Absolute 0.8(L) 1.0 - 4.8 10(9)/L 02/01/2025 10:55 AM [facility] Monocyte Absolute 0.5 0.2 - 0.9 10(9)/L 02/01/2025 10:55 AM [facility] Eosinophil Absolute 0.1 0.0 - 0.5 10(9)/L 02/01/2025 10:55 AM [facility] Basophil Absolute 0.0 0.0 - 0.3 10(9)/L 02/01/2025 10:55 AM [facility] Immature Granulocyte % 0.2 0.0 - 0.5 % 02/01/2025 10:55 AM [facility] Blood Venipuncture / Unknown 02/01/2025 10:04 AM CDT 02/01/2025 10:17 AM CDT us Rodger Cruz Paulino DO LAB_1 Final Result [facility] CLIA: [id number] [address] [employer] [address] * (ABNORMAL) Comp Metabolic Panel (02/01/2025 10:04 AM CDT) Sodium 140 136 - 145 mmol/L 02/01/2025 11:18 AM [facility] Potassium 3.7 3.5 - 5.1 mmol/L 02/01/2025 11:18 AM [facility] Chloride 109 98 - 109 mmol/L 02/01/2025 11:18 AM [facility] CO2 22 20 - 29 mmol/L 02/01/2025 11:18 AM [facility] Anion Gap 9 6 - 16 mmol/L 02/01/2025 11:18 AM [facility] Calcium 9.3 8.4 - 10.4 mg/dL 02/01/2025 11:18 AM [facility] BUN 9 7 - 26 mg/dL 02/01/2025 11:18 AM [facility] Creatinine 0.72(L) 0.73 - 1.18 mg/dL 02/01/2025 11:18 AM [facility] Alkaline Phosphatase 51 40 - 150 U/L 02/01/2025 11:18 AM [facility] AST (SGOT) 24 16 - 46 U/L 02/01/2025 11:18 AM [facility] ALT (SGPT) 27 0 - 55 U/L 02/01/2025 11:18 AM [facility] Bilirubin, Total 0.8 0.2 - 1.2 mg/dL 02/01/2025 11:18 AM [facility] Protein, Total 7.2 6.4 - 8.3 g/dL 02/01/2025 11:18 AM [facility] Albumin 4.1 3.5 - 5.0 g/dL 02/01/2025 11:18 AM [facility] Glucose 92 70 - 100 mg/dL 02/01/2025 11:18 AM [facility] Comment:The given reference range is for the fasting state. Non-fasting reference range for glucose is 70 - 180 mg/dL. GFR, Estimated >60 >60 mL/min/1.7 3m2 02/01/2025 11:18 AM [facility] Hours Fasting 2,130.0 8 - 12 Hours 02/01/2025 11:18 AM [facility] Comment:01/31/2025 Blood Venipuncture / Unknown 02/01/2025 10:04 AM CDT 02/01/2025 10:17 AM CDT us Rodger Bob DO LAB_1 Final Result Performing Organization Address [facility] Co de Phone Number [facility] CLIA: [id number] [facility] [address] * Uric Acid (Unit Collect) (02/01/2025 10:04 AM CDT) Uric Acid 4.5 3.5 - 7.2 mg/dL 02/04/2025 11:38 AM T [facility] Blood Venipuncture / Unknown 02/01/2025 10:04 AM CDT 02/01/2025 10:17 AM CDT us Kenny Abdul DO LAB_1 Final Result Performing Organization Address City/[facility]/ZIP Co de Phone Number [facility] CLIA: [id number] [address] * Sedimentation Rate (ESR) (02/01/2025 10:04 AM CDT) Sedimentation Rate 8 0 - 15 mm/hr 02/01/2025 11:34 AM CDT [facility] Blood Venipuncture / Unknown 02/01/2025 10:04 AM CDT 02/01/2025 10:17 AM CDT Rodger Bob DO LAB_1 Final Result [facility] CLIA: [id number] [address] [employer] [place], [place] [address] * XR Ankle Rt 3 Views (02/01/2025 [...] Final Result from Last 3 Months Insurance [facility]
--- OUTSIDE RECORDS SUMMARY | 2025-02-06 10:15 | XMS_ITS | Encounter Summary ---
Author Organization [employer] Address [address] [place] [address] Care Team Providers Care Roll Scale Man Name Role Phone Unavailable Primary Care Provider Unavailabl e Reason for Visit * Reason Comments Refill Encounter Details Date Type Department Care Team (Late st Contact Info) Description 12/03/2024 Refill [facility] [address] [address] Chandler Denney MD [address] [place] [phone] Refill Social History Tobacco Use Types Packs/Day [...] PM CDT Appointment [facility] [place] [address] [facility] [place] [address] Rodger Bob DO [address] [facility] [place] [address] documented as of this encounter Visit Diagnoses Diagnosis Right lumbar radiculopathy Thoracic or lumbosacral neuritis or radiculitis, unspecified documented in this encounter
--- OUTSIDE RECORDS SUMMARY | 2025-02-06 10:15 | XMS_ITS | Encounter Summary ---
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 [facility] at [facility]. Also, Pt understands that if he should develop an oral temperature greater than 100. 4 degrees, have increased swelling, redness, warmth to touch or increased pain, to come back in the our AIC/ER. Uric Acid (Unit Collect) Order: [id number] Status: Final result Dx: Pain and swelling of right ankle Test Result Released: Yes (not seen) Component Ref Range & Units 3 d ago Uric Acid 3.5 - 7.2 mg/dL 4.5 Resulting Agency [facility] Specimen Collected: 02/01/25 10:04 Last Resulted: 02/04/25 11:38 * Deedee Wells RN - 02/04/2025 11:23 AM CDT Finish Painter spoke with Jaimie at the [facility]. They are able to add the [...] and grandfather both have gouty arthritis. May commercial lines underwriter place this order?Advise. Pt understands that [...] PM CDT Appointment [facility] [place] [address] [place], [place] [id number] Rodger Bob DO [address] [facility] [place] [phone] documented as of this encounter Results * Uric Acid (Unit Collect) (02/01/2025 10:04 AM CDT) Uric Acid 4.5 3.5 - 7.2 mg/dL 02/04/2025 11:38 AM CDT [facility] Blood Venipuncture / Unknown 02/01/2025 10:04 AM CDT 02/01/2025 10:17 AM CDT us Kenny Abdul DO LAB_1 Final Result [facility] CLIA: [id number] [address] [place] [address], [facility] documented in this encounter Visit Diagnoses Diagnosis Pain and swelling of right ankle- Primary documented in this encounter
[2025-02-06 10:46] VITALS: BP 180/98; PULSE 104; RESP 16; TEMP 37.3; O2SAT 97; BMI 50.2
--- NOTE | 2025-02-06 13:00 | ED.GENADULT ---
HPI - General Adult General Chief complaint: Extremity Pain/Injury, Lower Stated complaint: R ankle pain Time Seen by Provider: 02/06/25 12:42 History of Present Illness HPI narrative: This 49-year-old male comes in with concern about redness and swelling in his right ankle. He was diagnosed with gout several days ago and has been taking prednisone and states that he is improving. He also reports a prior history of a deep venous thrombosis and is no longer taking anticoagulants. He does not report any pain or swelling in his calf or upper leg. Related Data Home Medications ?Medication ?Instructions ?Recorded ?Confirmed meloxicam 15 mg tablet 15 mg PO DAILY 02/04/25 02/06/25 Held on 02/06/25. Instructions: Pt stopped Previous Rx's ?Medication ?Instructions ?Recorded apixaban 5 mg (74 tabs) tablets in See Rx Instructions PO .COMPLEX 06/20/22 a dose pack (Eliquis DVT-PE Treat #74 ea 30D Start) apixaban 5 mg tablet (Eliquis) 5 mg PO BID #60 tabs 07/02/22 losartan 100 mg tablet 100 mg PO QDAY #90 tabs 07/02/22 chlorthalidone 50 mg tablet 50 mg PO QDAY #90 tabs 05/09/23 chlorthalidone 50 mg tablet 50 mg PO DAILY #30 tabs 02/06/25 indomethacin 50 mg capsule 50 mg PO BID #20 caps 02/06/25 losartan 100 mg tablet 100 mg PO DAILY #30 tabs 02/06/25 Allergies Allergy/AdvReac Type Severity Reaction Status Date / Time lisinopril Allergy Intermediate truncal Verified 02/06/25 10:53 hsieh general anesthesia Allergy malignant Uncoded 07/02/22 07:37 hypothermia Review of Systems Status of ROS: Reports: 10 or more systems reviewed and unremarkable except as noted in History and below Narrative: Constitutional: No fevers, no weight gain or loss. Eyes: No discharge. No vision changes. HENT: No congestion, no sore throat, no ear pain. Cardiovascular: No chest pain, no palpitations. Respiratory: No shortness of breath, no wheezes, no cough. Gastrointestinal: No abdominal pain, no vomiting, no diarrhea. Genitourinary: No dysuria, no hematuria. Musculoskeletal: Normal range of motion. Pain and swelling in the right ankle as described above. Skin: No rashes, no pruritis. Neurological: No dizziness, weakness, sensory change, speech change. Endo/Heme/Allergies: No bruising or bleeding. No polydipsia. Pysch: no suicidality, no anxiety, no insomnia. All other systems reviewed and are negative. [facility] Surgical History History of vasectomy (04/14/12) ?Z98.52 - Vasectomy status (ICD-10) History of tonsillectomy (08/04/09) ?Z90.89 - Acquired absence of other organs (ICD-10) Social History Smoking Status: Never smoker Do you use any of these nicotine containing products: None Second hand tobacco smoke exposure: No How often do you have a drink containing alcohol: never How often do you have six or more drinks on one occasion: Never AUDIT-C Alcohol total score: 0 Non-prescribed substance use: denies use service: No Exam Narrative: Exam Narrative: Constitutional: Well-developed, well-nourished, no acute distress. HEENT: Normocephalic, atraumatic. Neck: Normal range of motion. Nontender. Supple. Heart: Regular. No murmurs. Normal rate. Intact distal pulses. Lungs: Clear to auscultation. No chest discomfort. No wheezes, rhonchi, or rales. Abdomen: Normal bowel sounds. Nontender. No rebound tenderness. Genitalia: Deferred. Back: No midline tenderness. Normal range of motion. Extremities: Right ankle as diffuse swelling with erythema and mild decreased range of motion. Skin: Intact. No rash. Warm. No erythema or pallor. Neurologic: No altered sensation. No weakness. Alert and oriented. Psychiatric: No suicidality. No anxiety or depression. No insomnia. Nursing notes and vitals signs are reviewed. Const: Vital Signs, click to edit/add: Vital Signs - 24 hr 02/06/25 10:46 Temperature 99.2 F Pulse Rate [Pulse Oximeter] 104 H Respiratory Rate 16 Blood Pressure [Ri ght Upper Arm] 180/98 H Pulse Oximetry 97 Course Vital Signs Vital signs: Initial Vital Signs Temperature 99.2 F 02/06/25 10:46 Temperature Source Temporal Artery Scan 02/06/25 10:46 Pulse Rate 104 H 02/06/25 10:46 Respiratory Rate 16 02/06/25 10:46 Blood Pressure 180/98 H 02/06/25 10:46 Blood Pressure Mean 125 H 02/06/25 10:46 Blood Pressure Position Sitting 02/06/25 10:46 Pulse Oximetry 97 02/06/25 10:46 Vital Signs Temperature 99.2 F 02/06/25 10:46 Pulse Rate 104 H 02/06/25 10:46 Respiratory Rate 16 02/06/25 10:46 Blood Pressure 180/98 H 02/06/25 10:46 Pulse Oximetry 97 02/06/25 10:46 Temperature 99.2 F 02/06/25 10:46 Pulse Rate 104 H 02/06/25 10:46 Respiratory Rate 16 02/06/25 10:46 Blood Pressure 180/98 H 02/06/25 10:46 Pulse Oximetry 97 02/06/25 10:46 Medical Decision Making MDM Narrative Medical decision making narrative: This patient has gout in his right ankle and is improving after taking 3 days of prednisone. He has 6 more days of a tapering course of prednisone yet. He reports a history of blood clot but states that these symptoms are quite different. He does not have any pain or swelling in his calves or upper legs. I did state that we can do ultrasound but he is not tripping triggers that raise a concern for deep venous thrombosis. He is okay with no ultrasound study at this time and is aware of signs and symptoms that would indicate and need to return for such. I advised him to continue taking prednisone as prescribed. I also provided a prescription for indomethacin. He is requesting 1 month renewal of his blood pressure medications also. Discharge Plan Discharge Clinical Impression: Gout, Hypertension Patient Disposition: Home, Self-Care Condition: Stable Additional Instructions: Take medication as prescribed. Follow up with MD return if not improving or worsening. Prescriptions: New chlorthalidone 50 mg tablet 50 mg PO DAILY Qty: 30 2RF losartan 100 mg tablet 100 mg PO DAILY Qty: 30 2RF indomethacin 50 mg capsule 50 mg PO BID Qty: 20 0RF Rx Instructions: administer with food or milk No Action Eliquis 5 mg tablet 5 mg PO BID Qty: 60 8RF losartan 100 mg tablet 100 mg PO QDAY Qty: 90 3RF Eliquis DVT-PE Treat 30D Start 5 mg (74 tabs) tablets,dose pack See Rx Instructions PO .COMPLEX Qty: 74 0RF Rx Instructions: orally per package directions meloxicam 15 mg tablet 15 mg PO DAILY chlorthalidone 50 mg tablet 50 mg PO QDAY Qty: 90 0RF Follow Up/Referrals: Rajesh Iverson MD [Primary Care Provider, Family Practice] Stand Alone Forms: [employer] Info Instructions
== END 2025-02-06 13:15 | disposition home or self-care (01) ==
LOC: ED 13:08
PROVIDERS: Emergency Provider Emergency Medicine Emergency Medical Services; PCP Family Medicine
DX: M10.071 Idiopathic gout, right ankle and foot (principal); I10 Essential (primary) hypertension
CPT/HCPCS: 99283; 99284

== ENCOUNTER 2025-02-15 11:38 | Emergency (ER) | payer OTHER, SELFPAY ==
[2025-02-15] VITALS (16 sets, daily range): BP systolic 116–182; BP diastolic 58–93; PULSE 70–104; RESP 12–28; TEMP 36.6; O2SAT 95–96; BMI 47.9
--- NOTE | 2025-02-15 12:07 | ED.GENADULT ---
HPI - General Adult General Chief complaint: Extremity Pain/Injury, Lower Stated complaint: R ankle pain Time Seen by Provider: 02/15/25 12:07 History of Present Illness HPI narrative: Pt reports right ankle symptoms started 02/01. Swelling, pain, redness. Was treated with NSAIDs. Has been seen with our clinic for ongoing concerns of infection. Is ambulatory to triage. Rates pain currently 11/01. 49-year-old man presenting to the emergency department with concern of left ankle pain and swelling. Has had 4 visits since onset of ankle discomfort/pain/swelling/redness beginning 2 weeks ago. No trauma/bite noted. Records indicate diffuse swelling and erythema at initial evaluation. Initially thought to possibly have gout and was initiated on a course of prednisone with dosing boosted briefly toward the end of this course. Completed prednisone taper as of a yesterday. Had also been prescribed a course of indomethacin as well after initial meloxicam. Does take chlorthalidone along with losartan for blood pressure control. Did have an elevated temperature initially but has not been febrile since. X-rays of the right ankle and lab work including uric acid were unremarkable other than demonstrating old high school fracture above the ankle apparently (I suspect distal fibular) at outside facility 10 days ago. No new described trauma. Does have a history of DVT and no longer anticoagulated. Was directed to the emergency department today with concern of ?septic joint?. Hurts in particular to bear weight. Seems a little bit better middle the week but worsened again last couple of days. Has been intermittently wearing a walking boot. Family history with gout. Related Data Home Medications ?Medication ?Instructions ?Recorded ?Confirmed indomethacin 50 mg capsule 50 mg PO BID 02/10/25 02/15/25 Previous Rx's ?Medication ?Instructions ?Recorded chlorthalidone 50 mg tablet 50 mg PO DAILY #30 tabs 02/06/25 losartan 100 mg tablet 100 mg PO DAILY #30 tabs 02/06/25 apixaban 5 mg (74 tabs) tablets in See Rx Instructions PO .COMPLEX 02/15/25 a dose pack #74 ea Allergies Allergy/AdvReac Type Severity Reaction Status Date / Time lisinopril Allergy Intermediate truncal Verified 02/15/25 14:44 hsieh general anesthesia Allergy malignant Uncoded 02/15/25 14:44 hyperthermia Review of Systems Status of ROS: Reports: 6 or more systems reviewed and unremarkable except as noted in History and below PFSH PFS Surgical History History of vasectomy (04/14/12) ?Z98.52 - Vasectomy status (ICD-10) History of tonsillectomy (08/04/09) ?Z90.89 - Acquired absence of other organs (ICD-10) Social History Smoking Status: Never smoker Do you use any of these nicotine containing products: None Second hand tobacco smoke exposure: No How often do you have a drink containing alcohol: never How often do you have six or more drinks on one occasion: Never AUDIT-C Alcohol total score: 0 Non-prescribed substance use: denies use service: No Exam Narrative: Exam Narrative: Pleasant. NAD. Large man. Noted to be tachycardic on initial vitals. On monitor numerous PVCs. Skin is warm and dry. Right ankle in question is notably larger than the left. There is medial in from malleolar patch of erythema. Desquamated skin over this area. The erythema extends little superior and anterior to the medial malleolus and this is actually most tender here. Mild calor. No induration of the skin. Presumed effusion is not ballotable. Does not appear to have pain to movement of the ankle. Some discoloration at the distal right leg darkening as if related to underlying varicosities or hemosiderin deposition perhaps. Toes are warm and well perfused. Good pulses. 0.5 cm mole on the instep, sole of the right foot. Const: Vital Signs, click to edit/add: Vital Signs - 24 hr 02/15/25 11:48 02/15/25 12:09 02/15/25 12:25 Temperature 97.8 F Pulse Rate 93 Pulse Rate [Pulse Oximeter] 102 H Pulse Rate [Right Radial] 96 Respiratory Rate 20 14 Blood Pressure Blood Pressure [Ri ght Upper Arm] 182/93 H Pulse Oximetry 96 96 Oxygen Delivery Me thod Room Air 02/15/25 12:47 02/15/25 13:02 02/15/25 13:02 Temperature 97.8 F Pulse Rate 104 H Pulse Rate [Pulse Oximeter] 104 H Pulse Rate [Right Radial] Respiratory Rate 24 20 28 H Blood Pressure 181/84 H Blood Pressure [Ri ght Upper Arm] 181/84 H Pulse Oximetry 95 95 Oxygen Delivery Me thod Room Air 02/15/25 13:03 02/15/25 13:15 02/15/25 13:21 Temperature Pulse Rate Pulse Rate [Pulse Oximeter] Pulse Rate [Right Radial] Respiratory Rate 19 12 14 Blood Pressure 116/58 L Blood Pressure [Ri ght Upper Arm] Pulse Oximetry Oxygen Delivery Me thod 02/15/25 13:22 02/15/25 13:27 02/15/25 13:30 Temperature Pulse Rate 70 Pulse Rate [Pulse Oximeter] Pulse Rate [Right Radial] Respiratory Rate 13 16 Blood Pressure Blood Pressure [Ri ght Upper Arm] Pulse Oximetry Oxygen Delivery Me thod 02/15/25 13:45 02/15/25 13:58 02/15/25 14:02 Temperature Pulse Rate Pulse Rate [Pulse Oximeter] Pulse Rate [Right Radial] Respiratory Rate 13 16 15 Blood Pressure 132/64 142/64 H Blood Pressure [Ri ght Upper Arm] Pulse Oximetry Oxygen Delivery Me thod 02/15/25 14:30 02/15/25 15:00 Temperature Pulse Rate Pulse Rate [Pulse Oximeter] Pulse Rate [Right Radial] Respiratory Rate 21 12 Blood Pressure Blood Pressure [Ri ght Upper Arm] Pulse Oximetry Oxygen Delivery Me thod Documenting provider has reviewed patient's vital signs: yes Course Vital Signs Vital signs: Initial Vital Signs Temperature 97.8 F 02/15/25 11:48 Temperature Source Oral 02/15/25 11:48 Pulse Rate 102 H 02/15/25 11:48 Pulse Rhythm Irregular 02/15/25 11:48 Respiratory Rate 20 02/15/25 11:48 Blood Pressure 182/93 H 02/15/25 11:48 Blood Pressure Mean 122 H 02/15/25 11:48 Blood Pressure Position Sitting 02/15/25 11:48 Pulse Oximetry 96 02/15/25 11:48 Oxygen Delivery Method Room Air 02/15/25 11:48 Vital Signs Temperature 97.8 F 02/15/25 11:48 Pulse Rate 102 H 02/15/25 11:48 Respiratory Rate 20 02/15/25 11:48 Blood Pressure 182/93 H 02/15/25 11:48 Pulse Oximetry 96 02/15/25 11:48 Oxygen Delivery Method Room Air 02/15/25 11:48 Temperature 97.8 F 02/15/25 13:02 Pulse Rate 70 02/15/25 13:27 Respiratory Rate 12 02/15/25 15:00 Blood Pressure 142/64 H 02/15/25 14:02 Pulse Oximetry 95 02/15/25 13:02 Oxygen Delivery Method Room Air 02/15/25 13:02 Medications Administered Medications: Discontinued Medications Generic Name Dose Route Start Last Admin Trade Name Freq PRN Reason Stop Dose Admin Apixaban 10 mg 02/15/25 16:15 02/15/25 16:19 Apixaban 5 Mg Tablet PO 02/15/25 16:16 10 mg ONCE ONE Administration Diazepam 5 mg 02/15/25 13:36 02/15/25 13:44 Diazepam 5 Mg/Ml Inj IV 02/15/25 13:37 5 mg ONCE ONE Administration Sodium Chloride 500 mls @ 1,000 mls/hr 02/15/25 13:51 02/15/25 15:48 0.9 % Sodium Chloride 500 Ml IV 02/15/25 14:20 Infused .Q30M ONE Infusion Medical Decision Making [facility] Narrative Medical decision making narrative: Desquamation suggest some degree of cellulitis or significant swelling was present. I do not think this represents a cellulitis at this time. Does not appear to have significant infection in the joint given ease with which I move this without any particular pain. Much larger right ankle as opposed to left presumed effusion. Prior trauma this could certainly be precipitating a arthritic pain and swelling and effusion. Would check labs for red flags. Consider orthopedic consultation for 2nd opinion here and possible joint aspiration. I think it is less likely to represent a DVT but the distal darkening in the leg may also represent this and with significant history will request right lower extremity ultrasound as well considering history. Labs showing D-dimer is moderately elevated. Discussed findings with spinning frame changer confirming DVT in the right lower extremity. INDICATION: Ankle pain and swelling. COMPARISON: None available. TECHNIQUE: Static and compression grayscale and spectral (including color) Doppler ultrasound of the right lower extremity. FINDINGS: Deep veins: Occlusive DVT in the right peroneal veins upper and mid posterior tibial veins with nonocclusive DVT in the distal popliteal vein and distal posterior tibial veins. The imaged right common femoral, deep femoral, femoral, proximal popliteal and contralateral left common femoral veins are otherwise patent and free of clot. Superficial veins: The imaged right great saphenous vein is patent and free of clot. Extravascular findings: No significant incidental findings. IMPRESSION: Occlusive DVT in the right peroneal veins, upper and mid posterior tibial veins with nonocclusive DVT in the distal popliteal vein and distal posterior tibial veins. Dictated by Scotty Barney MD @ 02/15/2025 1:28:15 PM I had concerns about tachycardia that has actually been persistent over the last 12 days at least along with high blood pressures. I think it would be a good idea to scan Tariq's chest as well looking for pulmonary embolus. INDICATION: DVT, tachycardia. COMPARISON: None. TECHNIQUE: CT angiogram chest with contrast, pulmonary embolism protocol. Multiplanar axial, coronal, and sagittal reformats are included. MIP images to improve detection of pulmonary emboli are included. Intravenous contrast: 95 mL Isovue 370. FINDINGS: PE: Well-timed contrast bolus. There is very mild respiratory motion artifact. No pulmonary emboli seen. The distal most branches are somewhat limited by motion. Normal caliber main pulmonary artery. Normal sized right heart chambers. No reflux of contrast below the diaphragm. Airway: Expiratory appearance of the airway. Lungs: Expiratory appearance of the lungs. Mild respiratory motion artifact. Calcified granulomas. No consolidations. Normal appearance of the pulmonary interstitium. Pleura: No pleural effusion. No pneumothorax. Lymph nodes: Coarsely calcified right hilar and right lower mediastinal lymph nodes consistent with an old healed granulomatous infection. No enlarged or worrisome lymph nodes.. Mediastinum: No pneumomediastinum. No mass. Heart and great vessels: No pericardial effusion. Normal cardiac chamber size. No calcified atherosclerotic plaques. No aortic aneurysm. Chest wall: Normal. No masses. Upper abdomen: Normal. Bones: No fractures. No focal bone lesions. IMPRESSION: 1. No pulmonary embolism. 2. Deeply expiratory appearance of the airway and lungs. Please note that all CT scans at this facility use dose modulation, iterative reconstruction, and/or weight-based dosing when appropriate to reduce radiation dose to as low as reasonably achievable. Dictated by Anel Martinez MD @ 02/15/2025 3:48:26 PM Does reveal that has notable white coat hypertension, anxieties. Perhaps this was driving the tachycardia and blood pressures.. Did drop pressures significantly around placement IV; appears to have had some degree of a vasovagal event. Did give some diazepam in anticipation CT scan as well and this really appeared to help. CT chest without pulmonary embolus. Given initial dose apixaban in the emergency department. See patient discharge plan for further discussion Elevate for comfort and management edema. Consider compression as discussed. Please follow-up in a couple of weeks in clinic did discuss duration of anticoagulation and for med refills. Be seen for marked increase in swelling or pain, fever, increasing shortness of breath or chest pain. Hopefully you can enjoy the game tonight. Medical Records Medical records reviewed: Yes I reviewed the patient's medical records Lab Data Lab results reviewed: Yes I reviewed the patient's lab results Labs: Lab Results 02/15/25 Range/Units 13:22 WBC 11.84 H (4.50-11.00) K/uL RBC 5.61 (4.30-5.90) m/uL Hgb 15.4 (13.5-17.5) gm/dL Hct 47.1 (37.0-53.0) % MCV 84 (80-100) fL MCH 28 (26-34) pg MCHC 33 (32-36) gm/dL RDW Coeff of Cyndee 12.2 (11.5-15.5) % Plt Count 412 (140-440) K/uL Neut % (Auto) 76.0 H (42.0-72.0) % Lymph % (Auto) 14.4 L (20-44) % Arthur % (Auto) 8.0 (0.0-11.0) % Eos % (Auto) 0.7 (0.0-7.0) % Baso % (Auto) 0.2 (0.0-3.0) % Neut # (Auto) 9.00 H (1.7-7.0) K/uL Lymph # (Auto) 1.70 (0.90-2.90) K/uL Arthur # (Auto) 0.90 (0.00-0.90) K/UL Eos # (Auto) 0.10 (0.00-0.50) K/uL Baso # (Auto) 0.00 (0.00-0.30) K/uL Abs Immat Gran (auto) 0.10 (0.00-0.30) K/uL Imm/Tot Granulo (auto) 0.7 % INR 1.01 (0.91-1.10) APTT 31 (23-33) Seconds D-Dimer Quant (PE/DVT) 2.03 H (0.00-0.50) ug/ml Sodium 132 L (135-149) mmol/L Potassium 3.8 (3.6-5.1) mmol/L Chloride 91 L (96-114) mmol/L Carbon Dioxide 32 (20-32) mmol/L Anion Gap 9 (7-15) mEq/L BUN 17 (5-24) mg/dL Creatinine 0.7 (0.5-1.5) mg/dL Estimated Creat Clear 134.70 Estimated GFR 114 ml/min Glucose 100 (60-115) mg/dL Uric Acid 5.7 (2.2-8.4) mg/dL Calcium 9.2 (8.4-10.6) mg/dL C-Reactive Protein 6.7 H (0.5-1.0) mg/dL ECG Data Attestation: I personally reviewed and interpreted this ECG as follows: (Sinus tachycardia. PVCs. Rate of 102. no strain noted otherwise) Discharge Plan Discharge Clinical Impression: DVT of leg (deep venous thrombosis) Patient Disposition: Home w/ Parent or Adult Condition: Stable Additional Instructions: Elevate for comfort and management edema. Consider compression as discussed. Please follow-up in a couple of weeks in clinic did discuss duration of anticoagulation and for med refills. Be seen for marked increase in swelling or pain, fever, increasing shortness of breath or chest pain. Hopefully you can enjoy the game tonight. Prescriptions: New apixaban 5 mg (74 tabs) tablets,dose pack See Rx Instructions .ROUTE .COMPLEX Qty: 74 0RF Rx Instructions: orally per package directions Take 10 mg p.o. b.i.d. for 7 days then 5 mg p.o. b.i.d. No Action indomethacin 50 mg capsule 50 mg PO BID Rx Instructions: administer with food or milk chlorthalidone 50 mg tablet 50 mg PO DAILY Qty: 30 2RF losartan 100 mg tablet 100 mg PO DAILY Qty: 30 2RF Follow Up/Referrals: Rajesh Iverson MD [Primary Care Provider, Family Practice] Stand Alone Forms: MyHealth Info Instructions
--- NOTE | 2025-02-15 12:17 | CRLHL7_ITS ---
For Patients: As a result of the Century Cures Act, medical imaging exams and procedure reports are released immediately into your electronic medical record. You may view this report before your referring provider. If you have questions, please contact your health care provider. INDICATION: Ankle pain and swelling. COMPARISON: None available. TECHNIQUE: Static and compression grayscale and spectral (including color) Doppler ultrasound of the right lower extremity. FINDINGS: Deep veins: Occlusive DVT in the right peroneal veins upper and mid posterior tibial veins with nonocclusive DVT in the distal popliteal vein and distal posterior tibial veins. The imaged right common femoral, deep femoral, femoral, proximal popliteal and contralateral left common femoral veins are otherwise patent and free of clot. Superficial veins: The imaged right great saphenous vein is patent and free of clot. Extravascular findings: No significant incidental findings. IMPRESSION: Occlusive DVT in the right peroneal veins, upper and mid posterior tibial veins with nonocclusive DVT in the distal popliteal vein and distal posterior tibial veins. Dictated by Scotty Barney MD @ 02/15/2025 1:28:15 PM (Electronically Signed)
[2025-02-15 13:35] LABS: Hematocrit* 47.1 % (37.0-53.0); Hemoglobin* 15.4 gm/dL (13.5-17.5); Immature Granulocytes Pct Auto 0.7 %; Mean Corpuscular HGB Conc 33 gm/dL (32-36); Mean Corpuscular Hemoglobin 28 pg (26-34); Mean Corpuscular Volume 84 fL (80-100); RDW Coefficient of Variation % 12.2 % (11.5-15.5); Red Blood Count* 5.61 m/uL (4.30-5.90); White Blood Count* 11.84 K/uL (4.50-11.00)
[2025-02-15 13:36] LABS: Immature Granulocytes Abs Auto 0.10 K/uL (0.00-0.30); Lymphocytes Absolute Auto 1.70 K/uL (0.90-2.90); Slide Review Reflex No
[2025-02-15] MEDS: diazePAM 5 MG/ML inj IV (13:44)
[2025-02-15 13:50] LABS: Chloride* 91 mmol/L (96-114); Sodium* 132 mmol/L (135-149)
[2025-02-15 13:51] LABS: Potassium* 3.8 mmol/L (3.6-5.1)
--- NOTE | 2025-02-15 13:51 | CRLHL7_ITS ---
For Patients: As a result of the Century Cures Act, medical imaging exams and procedure reports are released immediately into your electronic medical record. You may view this report before your referring provider. If you have questions, please contact your health care provider. INDICATION: DVT, tachycardia. COMPARISON: None. TECHNIQUE: CT angiogram chest with contrast, pulmonary embolism protocol. Multiplanar axial, coronal, and sagittal reformats are included. MIP images to improve detection of pulmonary emboli are included. Intravenous contrast: 95 mL Isovue 370. FINDINGS: PE: Well-timed contrast bolus. There is very mild respiratory motion artifact. No pulmonary emboli seen. The distal most branches are somewhat limited by motion. Normal caliber main pulmonary artery. Normal sized right heart chambers. No reflux of contrast below the diaphragm. Airway: Expiratory appearance of the airway. Lungs: Expiratory appearance of the lungs. Mild respiratory motion artifact. Calcified granulomas. No consolidations. Normal appearance of the pulmonary interstitium. Pleura: No pleural effusion. No pneumothorax. Lymph nodes: Coarsely calcified right hilar and right lower mediastinal lymph nodes consistent with an old healed granulomatous infection. No enlarged or worrisome lymph nodes.. Mediastinum: No pneumomediastinum. No mass. Heart and great vessels: No pericardial effusion. Normal cardiac chamber size. No calcified atherosclerotic plaques. No aortic aneurysm. Chest wall: Normal. No masses. Upper abdomen: Normal. Bones: No fractures. No focal bone lesions. IMPRESSION: 1. No pulmonary embolism. 2. Deeply expiratory appearance of the airway and lungs. Please note that all CT scans at this facility use dose modulation, iterative reconstruction, and/or weight-based dosing when appropriate to reduce radiation dose to as low as reasonably achievable. Dictated by Anel Martinez MD @ 02/15/2025 3:48:26 PM (Electronically Signed)
[2025-02-15 13:52] LABS: INR 1.01 (0.91-1.10); Prothrombin Time 14.2 Seconds
[2025-02-15 13:53] LABS: Blood Urea Nitrogen* 17 mg/dL (5-24); Creatinine* 0.7 mg/dL (0.5-1.5); Estimated Glomerular Filt Rate 114 ml/min
[2025-02-15 13:54] LABS: Anion Gap 9 mEq/L (7-15); Calcium* 9.2 mg/dL (8.4-10.6); Carbon Dioxide* 32 mmol/L (20-32); Glucose* 100 mg/dL (60-115)
[2025-02-15 13:55] LABS: D Dimer Quantitative* 2.03 ug/ml (0.00-0.50)
[2025-02-15] MEDS: 0.9 % SODIUM CHLORIDE 500 ML 500 ML 1000 ML IV (14:59)
[2025-02-15] MEDS: APIXABAN 5 MG TABLET 10 MG PO (16:19)
== END 2025-02-15 16:45 | disposition home or self-care (01) ==
PROVIDERS: Emergency Provider Family Medicine; PCP Family Medicine
DX: I82.451 Acute embolism and thrombosis of right peroneal vein (principal); I82.441 Acute embolism and thrombosis of right tibial vein; I82.431 Acute embolism and thrombosis of right popliteal vein; R00.0 Tachycardia, unspecified; R03.0 Elevated blood-pressure reading, without diagnosis of hypertension
CPT/HCPCS: 36415; 71275; 80048; 84550; 85025; 85379; 85610; 85730; 86140; 93971; 96374; 99284; 99285; A9270; J3360; J7030; Q9967

== ENCOUNTER 2025-02-25 17:43 | Inpatient (IN) | payer OTHER, SELFPAY ==
--- OUTSIDE RECORDS SUMMARY | 2025-02-01 08:20 | XMS_ITS | Encounter Summary ---
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 Phone Unavailable Primary Care Provider Unavailabl e Reason for Referral * Procedure/Equipment (Routine) - Incomplete Specialty Diagnoses / Procedures Referred By Contac t Referred To Contact Diagnoses Arthralgia of right ankle Procedures XR Ankle Rt 3 Views Rodger Bob DO [address] [place] [address] [place] [address] Phone: tel: fax: Referral ID Status Reason Start Date Expiration Date V isits Requested Visits Authorized [id number] Incomplete 02/01/2025 05/03/2026 1 1 Reason for Visit * Reason Comments ANKLE PAIN Right ankle pain, re dness, swelling, started 01/31/25, no trauma Encounter Details Date Type Department Care Team (Late st Contact Info) Description 02/01/2025 9:20 AM CDT Office Visit [facility] [address] [place] [address] [place] [address] Rodger Bob DO [address] [facility] [place] [address] Arthralgia of right ankle (Primary Dx); Right ankle swelling; Pain and swelling of right ankle Social History Tobacco Use Types Packs/Day Years Used Date Smoking Tobacco: Never Sex and Gender Information Value Date Recorded Sex Assigned at Not on file Legal Sex Male 5:34 AM CDT Gender Identity Not on file Sexual Orientation Not on file documented as of this encounter Last Filed Vital Signs Vital Sign Reading Time Taken Comments Blood Pressure - - Pulse - - Temperature 36.7 C (98.1 F) 02/01/2025 9:26 AM CDT Respiratory Rate - - Oxygen Saturation - - Inhaled Oxygen Concentration - - Weight 158.8 kg (350 lb) 02/01/2025 9:26 AM CDT Height 180.3 cm (5' 11) 02/01/2025 9:26 AM CDT Body Mass Index 48.82 02/01/2025 9:26 AM CDT documented in this encounter Patient Instructions * Patient Instructions* Olga Smith, ATC - 02/01/2025 9:20 AM CDT Thank you for choosing [facility] for your health care visit today. If you have any questions regarding your visit or next steps, please contact us at [phone]. Rodger Bob, Medication Requests: Prescriptions are filled on Weekdays before 3:00PM For all medication refills: Request a refill using [employer] or contact your Pharmacy Paperwork Requests: FMLA or disability paperwork can be faxed to: [phone] Please allow 7-10 business days for completion of all paperwork. JOSE MANUEL Worker's Compensation Services: E-mail Address: [email or web address] What is Know Your Cost? Know Your Cost is a service for patients and patient/members to call and receive personalized cost information and estimates across our care group. The phone number is (COST) Tuesday - Tuesday 8 AM to 5 PM To request copies of your medical records, call: [phone] (option 4) Diagnosis: R ankle cellulitis vs gout Plan: Follow Up: Follow up dependent on lab results. Otherwise follow up in 7-10 days. Medications: Your physician has sent a prescription for meloxicam (Mobic) to your preferred pharmacy. Take this medication as instructed. Please be sure to review all information provided on your prescription regarding this drug and any potential side effects you may experience. Ask your pharmacistif any questions arise. RICE: - Utilize ice over the injured area (ice bag or bag of frozen vegetables) several times per day for up to 20 minutes at a time. Be sure to place a cold wet wash cloth or towel between the ice and your skin. - Elevate the affected body part above the level of the heart for 15-20 minutes, 3-4 times per day. - Modify activities as instructed by your physician - Avoid activities that cause pain. - Weight-bear as tolerated. Brace/DME: You were provided a tall boot in clinic today. Please use and care according to instructions given today. This item will be billed to your insurance. If insurance does not cover this item,you will be billed for any uncovered amount. You should wear your items as directed in clinic. documented in this encounter Progress Notes * Rodger Bob, DO - 02/01/2025 9:20 AM CDT Images from the original note were not included. [facility] Note Date of Service: 02/01/2025 : 1975 HPI: Tariq Herbert is a 49 y.o. male who presents today for evaluation of right ankle pain, which started 01/31/2025. Patient denies any specific injuries or trauma. Reports that he noticed that his ankle was more red, swollen, and tender. He states that he has tried ice and Advil. He states that ice seems to make it a little better but any kind of working out seems to make it worse. He denies any previous injuries or trauma. He denies any fevers or chills. Denies any history of gout. Does report that he has had a bad back that has caused him to walk differently, but reports he was not having anypain prior to when this pain started. History: Past medical, surgical and social history were reviewed and pertinent information noted in HPI. ROS: No additional concerns noted as per HPI PE: Filed Vitals: 02/01/25 0926 Temp: 36.7 ??C (98.1 ??F) TempSrc: Oral Weight: (!) 158.8 kg (350 lb) Height: 1.803 m (5' 11) General: Alert, Cooperative, in no acute distress. MSK Right Ankle --Inspection: Erythema and swelling present over the medial ankle. No ecchymosis. Plantar wart present on the plantar aspect of the foot, not in the area of erythema. --Palpation: No tenderness to palpation over the medial or lateral malleoli. Tenderness to palpation inferior to the medial malleolus oversight of erythema and swelling. No tenderness to palpation over talus, calcaneus, tarsals, metatarsals, phalanges. --Range of Motion: No restricted range of motion in dorsiflexion, plantar flexion inversion or eversion. --Strength: No decreased strength with dorsiflexion, plantarflexion, inversion and eversion. No pain with resisted testing. --Neurovascular: Sensation intact to light touch. 2+ DP and PT pulses. --Special Tests: No tenderness to palpation over the syndesmosis. No pain with squeeze testing Imaging: X-ray of the Right Ankle were obtained in clinic and reviewed by myself which were significant for no fractures or dislocations. These results were discussed with the patient during their visit as well. Assessment: ICD-10-CM 1. Arthralgia of right ankle M25.571 XR Ankle Rt 3 Views Meloxicam (MOBIC) 15 MG tablet Complete Blood Count -W/Diff (Unit Collect) Comp Metabolic Panel Airselect Elite/Standard Tall Boot(L4361) Sedimentation Rate (ESR) Complete Blood Count -W/Diff (Unit Collect) Comp Metabolic Panel Sedimentation Rate (ESR) CANCELED: Sedimentation Rate (ESR) 2. Right ankle swelling M25.471 Meloxicam (MOBIC) 15 MG tablet Complete Blood Count -W/Diff (Unit Collect) Comp Metabolic Panel Airselect Elite/Standard Tall Boot(L4361) Sedimentation Rate (ESR) Complete Blood Count -W/Diff (Unit Collect) Comp Metabolic Panel Sedimentation Rate (ESR) CANCELED: Sedimentation Rate (ESR) Plan In summary, patient is a 49 y.o. year old male who presents to clinic for right ankle pain. Based on physical exam and imaging findings this patient has history and physical exam concerning for developing cellulitis versus gout. Given these findings, we will obtain lab work including CBC, CRP, and ESR. We will start patient on Mobic 15 mg daily for the next 7-[address] patient in a tall walking boot as he is currently walking with a limp. We will provide patient with a work note allowing him to work in the boot or to have work accommodations allowing him to work in the boot. Discussed that if his exam results are concerning for infection he will need to follow up tomorrow, other arora we will have him follow up in 1 week in the anti-inflammatories should significantly help his pain. Discussed the use of icing for no more than 30 minutes at a time. Further recommendations pending lab results. Patient verbalized understanding of the plan and was agreeable with no further questions. DO JOSE MANUEL [facility] documented in this encounter Plan of Treatment Not on file documented as of this encounter Procedures Procedure Name Priority Date/Time Associated Diagnosis Comments CBC AND DIFFERENTIAL PANEL Routine 02/01/2025 10:04 AM CDT Arthralgia of right ankle Right ankle swelling COMPLETE BLOOD COUNT-W/DIFF Routine 02/01/2025 10:04 AM CDT Arthralgia of right ankle Right ankle swelling COMPREHENSIVE METABOLIC PANEL Routine 02/01/2025 10:04 AM CDT Arthralgia of right ankle Right ankle swelling URIC ACID Routine 02/01/2025 10:04 AM CDT Pain and swelling of right ankle SEDIMENTATION RATE (ESR) Routine 02/01/2025 10:04 AM CDT Arthralgia of right ankle Right ankle swelling documented in this encounter Results * Uric Acid (Unit Collect) (02/01/2025 10:04 AM CDT) Uric Acid 4.5 3.5 - 7.2 mg/dL 02/04/2025 11:38 AM [facility] Blood Venipuncture / Unknown 02/01/2025 10:04 AM CDT 02/01/2025 10:17 AM CDT us Kenny Abdul DO LAB_1 Final Result [facility] CLIA: [id number] [address] * (ABNORMAL) Complete Blood Count-W/Diff (02/01/2025 10:04 AM CDT) WBC 5.3 3.5 - 10.5 x10(9)/L 02/01/2025 10:55 AM [facility] RBC 5.46 4.32 - 5.72 x10(12)/L 02/01/2025 10:55 AM [facility] Hemoglobin 15.4 13.5 - 17.5 g/dL 02/01/2025 10:55 AM [facility] HCT 45.3 38.8 - 50.0 % 02/01/2025 10:55 AM [facility] MCV 83.0 80.0 - 100.0 fL 02/01/2025 10:55 AM [facility] MCH 28.2 27.6 - 33.3 pg 02/01/2025 10:55 AM [facility] MCHC 34.0 31.5 - 35.2 g/dL 02/01/2025 10:55 AM [facility] RDW 12.3 11.9 - 15.5 % 02/01/2025 10:55 AM [facility] Platelets 232 150 - 450 x10(9)/L 02/01/2025 10:55 AM [facility] Automated NRBC 0 <=0 /100 WBC 02/01/2025 10:55 AM [facility] Neutrophil Absolute 3.9 1.7 - 7.0 10(9)/L 02/01/2025 10:55 AM [facility] Lymphocyte Absolute 0.8(L) 1.0 - 4.8 10(9)/L 02/01/2025 10:55 AM [facility] Monocyte Absolute 0.5 0.2 - 0.9 10(9)/L 02/01/2025 10:55 AM [facility] Eosinophil Absolute 0.1 0.0 - 0.5 10(9)/L 02/01/2025 10:55 AM [facility] Basophil Absolute 0.0 0.0 - 0.3 10(9)/L 02/01/2025 10:55 AM [facility] Immature Granulocyte % 0.2 0.0 - 0.5 % 02/01/2025 10:55 AM [facility] Blood Venipuncture / Unknown 02/01/2025 10:04 AM CDT 02/01/2025 10:17 AM CDT us Rodger Cruz Rice DO LAB_1 Final Result Performing Organization Address [facility]/ZIP Co de Phone Number [facility] CLIA: [id number] [address] [place] [address] * Sedimentation Rate (ESR) (02/01/2025 10:04 AM CDT) Pathologist [facility] Sedimentation Rate 8 0 - 15 mm/hr 02/01/2025 11:34 AM [facility] Blood Venipuncture / Unknown 02/01/2025 10:04 AM CDT 02/01/2025 10:17 AM CDT us Soares G Rice DO LAB_1 Final Result [facility] CLIA: [id number] [facility] [address] * (ABNORMAL) Comp Metabolic Panel (02/01/2025 10:04 AM CDT) Sodium 140 136 - 145 mmol/L 02/01/2025 11:18 AM T [facility] Potassium 3.7 3.5 - 5.1 mmol/L 02/01/2025 11:18 AM [facility] Chloride 109 98 - 109 mmol/L 02/01/2025 11:18 AM [facility] CO2 22 20 - 29 mmol/L 02/01/2025 11:18 AM [facility] Anion Gap 9 6 - 16 mmol/L 02/01/2025 11:18 AM [facility] Calcium 9.3 8.4 - 10.4 mg/dL 02/01/2025 11:18 AM [facility] BUN 9 7 - 26 mg/dL 02/01/2025 11:18 AM [facility] Creatinine 0.72(L) 0.73 - 1.18 mg/dL 02/01/2025 11:18 AM [facility] Alkaline Phosphatase 51 40 - 150 U/L 02/01/2025 11:18 [facility] AST (SGOT) 24 16 - 46 U/L 02/01/2025 11:18 AM [facility] ALT (SGPT) 27 0 - 55 U/L 02/01/2025 11:18 AM [facility] Bilirubin, Total 0.8 0.2 - 1.2 mg/dL 02/01/2025 11:18 AM [facility] Protein, Total 7.2 6.4 - 8.3 g/dL 02/01/2025 11:18 [facility] Albumin 4.1 3.5 - 5.0 g/dL 02/01/2025 11:18 AM [facility] Glucose 92 70 - 100 mg/dL 02/01/2025 11:18 AM [facility] Comment:The given reference range is for the fasting state. Non-fasting reference range for glucose is 70 - 180 mg/dL. GFR, Estimated >60 >60 mL/min/1.7 3m2 02/01/2025 11:18 [facility] Hours Fasting 2,130.0 8 - 12 Hours 02/01/2025 11:18 AM [facility] Comment:01/31/2025 Blood Venipuncture / Unknown 02/01/2025 10:04 AM CDT 02/01/2025 10:17 AM CDT Rodger Bob DO LAB_1 Final Result [facility] CLIA: [id number] [address] * XR Ankle Rt 3 Views (02/01/2025 9:37 AM CDT) Anatomical Region Laterality Modality Lower Extremity, Ankle, Foot & Ankle Digital Radiography Narrative 02/01/2025 10:22 AM CDT EXAM: XR ANKLE RT 3 VIEWS INDICATION: right medial ankle pain and swelling COMPARISON: None. FINDINGS: Moderate tibiotalar joint effusion. Moderate soft tissue swelling about the ankle, most significant medially. Talar dome appears intact. Ankle mortise appears well aligned. Mild degenerative change without acute bony abnormality identified. Marked plantar calcaneal spurring. Mild enthesopathy about the calcaneal tendon insertion. Signed by: Octavio Walsh 02/01/2025 10:22 AM Procedure Note Octavio Walsh MD - 02/01/2025 EXAM: XR ANKLE RT 3 VIEWS INDICATION: right medial ankle pain and swelling COMPARISON: None. FINDINGS: Moderate tibiotalar joint effusion. Moderate soft tissue swelling aboutthe ankle, most significant medially. Talar dome appears intact. Anklemortise appears well aligned. Mild degenerative change without acute bonyabnormality identified. Marked plantar calcaneal spurring. Mildenthesopathy about the calcaneal tendon insertion. Signed by: Octavio Walsh 02/01/2025 10:22 AM Rodger Bob DO RAD GD Final Result documented in this encounter Visit Diagnoses Diagnosis Arthralgia of right ankle- Primary Pain in joint, ankle and foot Right ankle swelling Effusion of ankle and foot joint Pain and swelling of right ankle Arthralgia of right ankle Pain in joint, ankle and foot documented in this encounter
--- OUTSIDE RECORDS SUMMARY | 2025-02-01 08:35 | XMS_ITS | Encounter Summary ---
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 Role Phone Unavailable Primary Care Provider Unavailabl e Reason for Visit * Procedure/Equipment (Routine) - Incomplete Specialty Diagnoses / Procedures Referred By Contac t Referred To Contact Diagnoses Arthralgia of right ankle Procedures XR Ankle Rt 3 Views Rodger Bob DO [address] [facility] [place] [address] Phone: tel: fax: Referral ID Status Reason Start Date Expiration Date V isits Requested Visits Authorized [id number] Incomplete 02/01/2025 05/03/2026 1 1 Encounter Details Date Type Department Care Team (Late st Contact Info) Description 02/01/2025 9:35 AM CDT Ancillary Procedure [facility] [address] [place], [place] [address] Rodger Bob DO [address] [facility] [place] [id number] Arthralgia of right ankle Social History Tobacco Use Types Packs/Day Years Used Date Smoking Tobacco: Never Sex and Gender Information Value Date Recorded Sex Assigned at Not on file Legal Sex Male 5:34 AM CDT Gender Identity Not on file Sexual Orientation Not on file documented as of this encounter Plan of Treatment Not on file documented as of this encounter Procedures Procedure Name Priority Date/Time Associated Diagnosis Comments XR ANKLE RT 3 VIEWS Routine 02/01/2025 9 :37 AM CDT Arthralgia of right ankle documented in this encounter Results * XR Ankle Rt 3 Views (02/01/2025 [...] encounter Visit Diagnoses Diagnosis Arthralgia of right ankle Pain in joint, ankle and foot documented in this encounter
--- OUTSIDE RECORDS SUMMARY | 2025-02-25 17:46 | XMS_ITS | Clinical Summary ---
Author Organization [employer] [address] Address [address] [place] [address] Care Team Providers Care Casing Operator Name Role Phone Unavailable Primary Care Provider Unavailabl e Source Comments You are receiving this document as you are listed as the primary care provider,follow-up provider, or the patient has been referred to you for consultation.This is in compliance with the Medicare and[facility] Systemca[facility] EHR Incentive Program,which states Providers who transition their patient to another setting of careor provider of care or refers their patient to another provider of care shouldprovide summary care record for each transition of care or referral. [place] Allergies Active Allergy Reactions Criticality Noted Date Comments Other 01/21/2008 PN: LW Other1: -Anectine- Medications unknown medication Indications: PN: 01/21/20 08 Active methylPREDNISolon e (MEDROL 21 TABLET DOSEPACK) 4 MG tabletIndications :Right lumbar radiculopathy Follow package directions 21 Tablet 09/11/19 25 Active Additional Information Patient not taking.Reported on 02/01/2025 Meloxicam (MOBIC) 15 MG tabletIndications :Arthralgia of right ankle,Right ankle swelling Take 1 Tablet (15 mg) by mouth daily for 14 days. 14 Tablet 02/02/20 25 025 Active Problems Problem Noted Date Diagnosed Date Allergic rhinitis 12/13/2003 Overview (12/15/2016): LW Onset: [id number] ; Rhinitis Allergic NOS Encounters Date Type Department Care Team Description 02/01/2025 9:35 AM CDT Ancillary Procedure [facility] [address] [place] [address] Rodger Bob DO Arthralgia of right ankle 02/01/2025 9:20 AM CDT Office Visit [facility] [address] [address] Rodger Bob DO Arthralgia of right ankle (Primary Dx); Right ankle swelling; Pain and swelling of right ankle 02/01/2025 Telephone [facility] [address] [address] Rodger Bob, RESULTS, TEST 12/03/2024 Refill [facility] [address] [address] Chandler Denney MD Refill from Last 3 [...] 02/01/2025 9:26 AM CDT Plan of Treatment Health Maintenance Due Date Last Done Comments [...] Complete Blood Count-W/Diff (02/01/2025 10:04 AM CDT) [facility] WBC 5.3 3.5 - 10.5 x10(9)/L 02/01/2025 10:55 AM CDT [facility] RBC 5.46 4.32 - 5.72 x10(12)/L 02/01/2025 10:55 AM [facility] Hemoglobin 15.4 13.5 - 17.5 g/dL 02/01/2025 10:55 AM [facility] HCT 45.3 38.8 - 50.0 % 02/01/2025 10:55 AM [facility] MCV 83.0 80.0 - 100.0 fL 02/01/2025 10:55 AM [facility] MCH 28.2 27.6 - 33.3 pg 02/01/2025 10:55 AM [facility] MCHC 34.0 31.5 - 35.2 g/dL 02/01/2025 10:55 AM [facility] RDW 12.3 11.9 - 15.5 % 02/01/2025 10:55 AM [facility] Platelets 232 150 - 450 x10(9)/L 02/01/2025 10:55 AM [facility] Automated NRBC 0 <=0 /100 WBC 02/01/2025 10:55 AM [facility] Neutrophil Absolute 3.9 1.7 - 7.0 10(9)/L 02/01/2025 10:55 AM [facility] Lymphocyte Absolute 0.8(L) 1.0 - 4.8 10(9)/L 02/01/2025 10:55 AM [facility] Monocyte Absolute 0.5 0.2 - 0.9 10(9)/L 02/01/2025 10:55 AM [facility] Eosinophil Absolute 0.1 0.0 - 0.5 10(9)/L 02/01/2025 10:55 AM [facility] Basophil Absolute 0.0 0.0 - 0.3 10(9)/L 02/01/2025 10:55 AM [facility] Immature Granulocyte % 0.2 0.0 - 0.5 % 02/01/2025 10:55 AM [facility] Blood Venipuncture / Unknown 02/01/2025 10:04 AM CDT 02/01/2025 10:17 AM T us Rodger Bob DO LAB_1 Final Result [facility] CLIA: [id number] * (ABNORMAL) Comp Metabolic Panel (02/01/2025 10:04 AM [facility]) Sodium 140 136 - 145 mmol/L 02/01/2025 11:18 AM [facility] Potassium 3.7 3.5 - 5.1 mmol/L 02/01/2025 11:18 AM [facility] Chloride 109 98 - 109 mmol/L 02/01/2025 11:18 AM [facility] CO2 22 20 - 29 mmol/L 02/01/2025 11:18 AM [facility] Anion Gap 9 6 - 16 mmol/L 02/01/2025 11:18 AM [facility] Calcium 9.3 8.4 - 10.4 mg/dL 02/01/2025 11:18 AM [facility] BUN 9 7 - 26 mg/dL 02/01/2025 11:18 AM [facility] Creatinine 0.72(L) 0.73 - 1.18 mg/dL 02/01/2025 11:18 AM [facility] Alkaline Phosphatase 51 40 - 150 U/L 02/01/2025 11:18 AM [facility] AST (SGOT) 24 16 - 46 U/L 02/01/2025 11:18 AM [facility] ALT (SGPT) 27 0 - 55 U/L 02/01/2025 11:18 AM [facility] Bilirubin, Total 0.8 0.2 - 1.2 mg/dL 02/01/2025 11:18 AM [facility] Protein, Total 7.2 6.4 - 8.3 g/dL 02/01/2025 11:18 AM [facility] Albumin 4.1 3.5 - 5.0 g/dL 02/01/2025 11:18 AM [facility] Glucose 92 70 - 100 mg/dL 02/01/2025 11:18 AM [facility] Comment:The given reference range is for the fasting state. Non-fasting reference range for glucose is 70 - 180 mg/dL. GFR, Estimated >60 >60 mL/min/1.7 3m2 02/01/2025 11:18 AM T [facility] Hours Fasting 2,130.0 8 - 12 Hours 02/01/2025 11:18 AM T [facility] Comment:01/31/2025 Blood Venipuncture / Unknown 02/01/2025 10:04 AM CDT 02/01/2025 10:17 AM CDT us Rodger Bob DO LAB_1 Final Result Performing Organization Address [facility] Phone Number [facility] CLIA: [id number] [address] [place] [address] * Uric Acid (Unit Collect) (02/01/2025 10:04 AM CDT) Uric Acid 4.5 3.5 - 7.2 mg/dL 02/04/2025 11:38 AM T [facility] Blood Venipuncture / Unknown 02/01/2025 10:04 AM CDT 02/01/2025 10:17 AM CDT us Kenny Abdul DO LAB_1 Final Result Performing Organization Address [facility] Phone Number [facility] CLIA: [id number] [address] [place] [address] * Sedimentation Rate (ESR) (02/01/2025 10:04 AM CDT) Sedimentation Rate 8 0 - 15 mm/hr 02/01/2025 11:34 AM CDT [facility] Blood Venipuncture / Unknown 02/01/2025 10:04 AM CDT 02/01/2025 10:17 AM CDT us Rodger Bob DO LAB_1 Final Result [facility] CLIA: [id number] [address] [place] [address], [facility] * XR Ankle Rt 3 Views (02/01/2025 [...] by: Octavio Walsh 02/01/2025 10:22 AM Rodger WILKINS GD Final Result from Last 3 Months Insurance [facility] * Guarantor: CINTHIA HERBERT Account Type Relation to Patient Date of Phone Billing Address Personal/Family 1975 [address] [place] [phone]
--- OUTSIDE RECORDS SUMMARY | 2025-02-25 17:46 | XMS_ITS | Encounter Summary ---
Author Organization [employer] Address [address] [place] [address] Care Team Providers Care Molybdenum Steamer Operator Name Role Phone Unavailable Primary Care Provider Unavailabl e Reason for Visit * Reason Comments RESULTS, TEST Encounter Details Date Type Department Care Team (Late st Contact Info) Description 02/01/2025 Telephone [facility] [address] [id number] Rodger Bob, DO [address] [place] [address] RESULTS, TEST Social History Tobacco Use Types [...] Enmanuel;t has been made for 02/08/2025 @ [address] the [facility]. Also, Pt understands that if he should develop an oral temperature greater than 100. 4 degrees, have increased swelling, redness, warmth to touch or increased pain, to come back in the our AIC/ER. Uric Acid (Unit Collect) Order: [id number] Status: Final result Dx: Pain and swelling of right ankle Test Result Released: Yes (not seen) Component Ref Range & Units 3 d ago Uric Acid 3.5 - 7.2 mg/dL 4.5 Resulting Agency [facility] Specimen Collected: 02/01/25 10:04 Last Resulted: 02/04/25 11:38 * Deedee Wells RN - 02/04/2025 11:23 AM CDT Hairspring Setter spoke with Jaimie at [facility]. They are able to add the [...] and grandfather both have gouty arthritis. May investment underwriter place this order?Advise. Pt understands that [...] on file documented as of this encounter Results * Uric Acid (Unit Collect) (02/01/2025 10:04 AM CDT) Uric Acid 4.5 3.5 - 7.2 mg/dL 02/04/2025 11:38 AM CDT [facility] Blood Venipuncture / Unknown 02/01/2025 10:04 AM CDT 02/01/2025 10:17 AM CDT us Kenny Abdul DO LAB_1 Final Result [facility] CLIA: [id number] [address] [place], [place] [address] documented in this encounter Visit Diagnoses Diagnosis Pain and swelling of right ankle- Primary documented in this encounter
[2025-02-25 17:53] VITALS: BP 133/80; PULSE 100; RESP 20; TEMP 36.6; O2SAT 97; BMI 47.3
--- NOTE | 2025-02-25 19:37 | ED.LOWEXIN ---
HPI - Extremity Injury (Lower) General Time Seen by Provider: 19:37 Date Seen: 02/25/25 Chief Complaint: Extremity Pain/Injury, Lower Stated Complaint: R leg blood clot in calf, swollen/infected ankle Time Seen by Provider: 02/25/25 19:37 Source: patient, family, RN notes reviewed and old records reviewed Mode of arrival: ambulatory Limitations: no limitations History of Present Illness HPI Narrative: Tariq is a very pleasant 49-year-old male with past history of DVT, current history of DVT, hypertension who comes to the emergency room for evaluation regarding possible infection on his right ankle. Tariq was actually seen a few weeks ago with right ankle pain, redness thought to be gout and treated with prednisone. He returned last week at which time the redness was somewhat increased and he was diagnosed with a DVT. He is currently on apixaban. He has had a previous DVT. He has never been tested for factor 5 her any of the genetic predisposition. He notes that he has had increasing redness continue on the inside of his right ankle and today it has become much more swollen fluctuant and actually has skin flaking off. Notes that he did have a fever a few days ago but no fever in the last 48 hours and he denies chills vomiting or body aches. He notes no significant difficulties comfort at rest or with ankle movement but with weight-bearing he does have increased pain. 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 Patient is requesting sedation prior to any procedures. Notes a significant fear of needles. I do order in 5 mg of p.o. Valium. Related Data Home Medications ?Medication ?Instructions ?Recorded ?Confirmed indomethacin 50 mg capsule 50 mg PO BID 02/10/25 02/15/25 Previous Rx's ?Medication ?Instructions ?Recorded chlorthalidone 50 mg tablet 50 mg PO DAILY #30 tabs 02/06/25 losartan 100 mg tablet 100 mg PO DAILY #30 tabs 02/06/25 apixaban 5 mg (74 tabs) tablets in See Rx Instructions PO .COMPLEX 02/15/25 a dose pack #74 ea Allergies Allergy/AdvReac Type Severity Reaction Status Date / Time lisinopril Allergy Intermediate truncal Verified 02/25/25 21:17 hsieh general anesthesia Allergy malignant Uncoded 02/25/25 21:17 hyperthermia Review of Systems Status of ROS: Reports: 10 or more systems reviewed and unremarkable except as noted in History and below Const: Denies: chills or fatigue Eyes: Denies: change in vision ENMT: Denies: throat pain, neck pain or nasal congestion Cardio: Reports: swelling of feet/ankles; Denies: chest pain, lightheadedness or shortness of breath with exertion Resp: Denies: shortness of breath or cough GI: Denies: abdominal pain, nausea or vomiting : Denies: painful urination Musculo: Reports: joint pain; Denies: back pain or neck pain Integ/Breast: Reports: redness, skin pain, skin tenderness, skin swelling and sores Neuro: Denies: headache Endo: Denies: fatigue PFSH PFSH Surgical History History of vasectomy (04/14/12) ?Z98.52 - Vasectomy status (ICD-10) History of tonsillectomy (08/04/09) ?Z90.89 - Acquired absence of other organs (ICD-10) Social History What is your current living situation?: I presently have a place to live Problems where you live: no known problems Problems where you live details: NA In the past 12 months, utilities in danger of being shut off: no In past 12 months, lack of transportation kept you from medical appts, meetings, work, or getting things needed for daily living: no In the past 12 mos, have been you worried that your food would run out before you had money to buy more?: never true In the past 12 mos, the food you bought just didn't last and you didn't have money to buy more?: never true Highest level of school completed/degree received: high school graduate Smoking Status: Never smoker Do you use any of these nicotine containing products: None Second hand tobacco smoke exposure: No How often do you have a drink containing alcohol: never How often do you have six or more drinks on one occasion: Never AUDIT-C Alcohol total score: 0 Non-prescribed substance use: denies use Caffeine: No How often does anyone, including family, friends and others, physically hurt you: never How often does anyone, including family, friends and others, insult or talk down to you: never How often does anyone, including family, friends and others, threaten you with harm: never How often does anyone, including family, friends and others, scream or curse at you: never service: No Exam Narrative: Exam Narrative: Alert and oriented. Very anxious requesting medication and sedation if we need to draw any blood as he is afraid of needles. Face symmetrical, no respiratory distress. Heart with regular rate and rhythm and lungs are clear. Abdomen soft nontender. Examination of the lower extremity shows a softball sized area of erythema on the medial aspect of the left ankle over the malleolus. It does appear to be somewhat fluctuant. In the center there is increased area of erythema. There is a very minute amount of oozing from this area and I do obtain a wound culture. No pain with palpation over the bony aspect of the ankle. Flexion extension lateral movement intact. Const: Vital Signs, click to edit/add: Vital Signs - 24 hr 02/25/25 17:53 02/25/25 19:52 02/25/25 22:08 Temperature 98 F 98 F Pulse Rate [Pulse Oximeter] 100 84 Respiratory Rate 20 20 Blood Pressure [Ri ght Upper Arm] 133/80 154/79 H Pulse Oximetry 97 97 97 Oxygen Delivery Me thod Room Air Room Air Documenting provider has reviewed patient's vital signs: yes Course Course ED Course: Differential diagnosis includes but is not limited to cellulitis, abscess, osteomyelitis,. Do not feel that this is a gouty flare given the fluctuance and amount of localized erythema. Will do point of care ultrasound and obtain ortho consult. Will also check labs to include CBC, CRP, basic panel. Have also obtain wound culture. Reevaluation(s) Reevaluation #1: Patient does not have a discrete pocket of fluid on ultrasound. Did discuss with ELEUTERIO Kidd regarding CT admission and antibiotics. He is in agreement with this plan with planned orthopedic and wound consult in the morning. Vital Signs Vital signs: Initial Vital Signs Temperature 98 F 02/25/25 17:53 Temperature Source Temporal Artery Scan 02/25/25 17:53 Pulse Rate 100 02/25/25 17:53 Respiratory Rate 20 02/25/25 17:53 Blood Pressure 133/80 02/25/25 17:53 Blood Pressure Mean 97 02/25/25 17:53 Pulse Oximetry 97 02/25/25 17:53 Oxygen Delivery Method Room Air 02/25/25 17:53 Vital Signs Temperature 98 F 02/25/25 17:53 Pulse Rate 100 02/25/25 17:53 Respiratory Rate 20 02/25/25 17:53 Blood Pressure 133/80 02/25/25 17:53 Pulse Oximetry 97 02/25/25 17:53 Oxygen Delivery Method Room Air 02/25/25 17:53 Temperature 98.3 F 02/26/25 02:33 Pulse Rate 85 02/26/25 02:33 Respiratory Rate 18 02/26/25 02:33 Blood Pressure 158/73 H 02/26/25 02:33 Pulse Oximetry 97 02/26/25 02:33 Oxygen Delivery Method Room Air 02/26/25 02:33 Medications Administered Medications: Generic Name Dose Route Start Last Admin Trade Name Freq PRN Reason Stop Dose Admin Sodium Chloride 1,000 mls @ 150 mls/hr 02/25/25 22:30 02/25/25 22:42 0.9 % Sodium Chloride 1000 Ml IV 02/26/25 05:09 150 mls/hr .[id number] BON Administration Melatonin 3 - 6 mg 02/25/25 22:30 02/26/25 00:46 Melatonin 3 Mg Tablet PO 6 mg HS PRN Administration Discontinued Medications Generic Name Dose Route Start Last Admin Trade Name Freq PRN Reason Stop Dose Admin Acetaminophen 1,000 mg 02/25/25 22:30 02/26/25 02:35 Acetaminophen 325 Mg Tablet PO 975 mg Q6H PRN Administration Diazepam 5 mg 02/25/25 19:45 02/25/25 19:51 Diazepam 5 Mg Tablet PO 02/25/25 19:46 5 mg ONCE ONE Administration Ceftriaxone Sodium 1 gm/ 100 mls @ 200 mls/hr 02/25/25 21:56 02/25/25 22:27 Sodium Chloride IVPB 02/25/25 21:57 Infused ONCE ONE Infusion Potassium Bicarbonate 25 meq 02/25/25 21:15 02/26/25 00:46 Potassium Bicarb 25 Meq Effervescent Tab PO 02/26/25 01:16 25 meq Q2H BON Administration Potassium Chloride 40 meq 02/25/25 22:41 02/25/25 23:02 Potassium Chloride 10 Meq Capsule Er PO 02/25/25 22:42 40 meq ONCE ONE Administration MDM - Extremity Injury (Lower) MDM Narrative Medical decision making narrative: 1. Cellulitis right ankle-cannot rule out underlying abscess. CT is pending. Have spoken with hospitalist we will be using Rocephin 1 g IV new on this gentleman with no history of MRSA or systemic findings of sepsis. A culture was done but there was only a small amount of fluid oozing from the center of the erythema on the ankle. His white count is reassuring at 8.8 but is CRP is elevated although per hospitalist this is improved since last week. 2. Hypokalemia potassium is 2.6 we will be replacing his potassium with 25 mEq Q 2 hours. Did repeat after 1st dose and potassium now at 3.0. 3. Disposition-admit inpatient under the care of ELEUTERIO Richardson. Addendum: CT does not show any evidence of osteomyelitis. There is a very thin elongated gated subcutaneous fluid collection on the CT. Patient is given Rocephin 1 g IV in in the ED. Medical Records Attestation: I reviewed the patient's medical records. Lab Data Attestation: I reviewed the patient's lab results. Labs: Lab Results 02/25/25 02/25/25 Range/Units 20:10 22:08 WBC 8.80 (4.50-11.00) K/uL RBC 5.03 (4.30-5.90) m/uL Hgb 13.6 (13.5-17.5) gm/dL Hct 41.7 (37.0-53.0) % MCV 83 (80-100) fL MCH 27 (26-34) pg MCHC 33 (32-36) gm/dL RDW Coeff of Cyndee 11.8 (11.5-15.5) % Plt Count 291 (140-440) K/uL Neut % (Auto) 70.2 (42.0-72.0) % Lymph % (Auto) 20.0 (20-44) % [place] % (Auto) 7.8 (0.0-11.0) % Eos % (Auto) 1.7 (0.0-7.0) % Baso % (Auto) 0.1 (0.0-3.0) % Neut # (Auto) 6.17 (1.7-7.0) K/uL Lymph # (Auto) 1.76 (0.90-2.90) K/uL [place] # (Auto) 0.70 (0.00-0.90) K/UL Eos # (Auto) 0.15 (0.00-0.50) K/uL Baso # (Auto) 0.01 (0.00-0.30) K/uL Abs Immat Gran (auto) 0.02 (0.00-0.30) K/uL Imm/Tot Granulo (auto) 0.2 % Sodium 135 (135-149) mmol/L Potassium 2.6 L* 3.0 L (3.6-5.1) mmol/L Chloride 97 (96-114) mmol/L Carbon Dioxide 28 (20-32) mmol/L Anion Gap 10 (7-15) mEq/L BUN 26 H (5-24) mg/dL Creatinine 1.1 (0.5-1.5) mg/dL Estimated Creat Clear 85.72 Estimated GFR 83 ml/min Glucose 100 (60-115) mg/dL Calcium 9.2 (8.4-10.6) mg/dL C-Reactive Protein 5.2 H (0.5-1.0) mg/dL Imaging Data Left lower extremity CT: Attestation: I have reviewed the pertinent imaging results. My impression: I do not note osteomyelitis on the CT. Radiologist's impression: Bones: Alignment is normal. No sign of acute fracture. No suspicious bony lesions. Joints: Mild arthritic changes. Soft tissues: Relatively severe medial swelling. A thin elongated subcutaneous fluid collection also present. IMPRESSION: Severe medial swelling with a thin elongated subcutaneous fluid collection which can not be further characterized on this exam. No sign of osteomyelitis. Discharge Plan Discharge Clinical Impression: DVT of leg (deep venous thrombosis), Cellulitis, Hypokalemia Patient Disposition: Admitted As Inpatient Condition: Stable Procedures POC Ultrasound Skin/Soft Tissue Anatomical areas examined: Right leg Indications: soft tissue pain, soft tissue swelling and soft tissue redness Exam type: limited soft tissue ultrasound Findings: generalized edema/cobble stoning Descriptions/Findings: No evidence of discrete pocket of fluid.
[2025-02-25 19:52] VITALS: O2SAT 97
[2025-02-25 20:19] LABS: Hematocrit* 41.7 % (37.0-53.0); Hemoglobin* 13.6 gm/dL (13.5-17.5); Immature Granulocytes Abs Auto 0.02 K/uL (0.00-0.30); Immature Granulocytes Pct Auto 0.2 %; Lymphocytes Absolute Auto 1.76 K/uL (0.90-2.90); Mean Corpuscular HGB Conc 33 gm/dL (32-36); Mean Corpuscular Hemoglobin 27 pg (26-34); Mean Corpuscular Volume 83 fL (80-100); RDW Coefficient of Variation % 11.8 % (11.5-15.5); Red Blood Count* 5.03 m/uL (4.30-5.90); White Blood Count* 8.80 K/uL (4.50-11.00)
--- NOTE | 2025-02-25 20:31 | CRLHL7_ITS ---
For Patients: As a result of the Century Cures Act, medical imaging exams and procedure reports are released immediately into your electronic medical record. You may view this report before your referring provider. If you have questions, please contact your health care provider. INDICATION: Cellulitis medial malleolus. TECHNIQUE: CT right ankle with 147 cc Isovue 370 IV contrast. COMPARISON: None. FINDINGS: Bones: Alignment is normal. No sign of acute fracture. No suspicious bony lesions. Joints: Mild arthritic changes. Soft tissues: Relatively severe medial swelling. A thin elongated subcutaneous fluid collection also present. IMPRESSION: Severe medial swelling with a thin elongated subcutaneous fluid collection which can not be further characterized on this exam. No sign of osteomyelitis. Please note that all CT scans at this facility use dose modulation, iterative reconstruction, and/or weight-based dosing when appropriate to reduce radiation dose to as low as reasonably achievable. Dictated by Mandeep Padilla MD @ 02/25/2025 9:36:06 PM (Electronically Signed)
[2025-02-25 20:35] LABS: Chloride* 97 mmol/L (96-114); Sodium* 135 mmol/L (135-149)
[2025-02-25 20:38] LABS: Anion Gap 10 mEq/L (7-15); Blood Urea Nitrogen* 26 mg/dL (5-24); Carbon Dioxide* 28 mmol/L (20-32); Creatinine* 1.1 mg/dL (0.5-1.5); Est. Creatinine Clearance* 85.72; Estimated Glomerular Filt Rate 83 ml/min
[2025-02-25 20:39] LABS: Calcium* 9.2 mg/dL (8.4-10.6); Glucose* 100 mg/dL (60-115)
[2025-02-25 20:58] LABS: Potassium* 2.6 mmol/L (3.6-5.1)
[2025-02-25] MEDS: POTASSIUM BICARB 25 MEQ EFFERVESCENT TAB PO ×2 (21:20→23:02)
[2025-02-25 21:29] LABS: Slide Review Reflex No
[2025-02-25] MEDS: cefTRIAXone 1 GM in 0.9 % SODIUM CHLORIDE Mini-bag 100 ML IVPB (22:05)
[2025-02-25 22:08] VITALS: BP 154/79; PULSE 84; RESP 20; TEMP 36.6; O2SAT 97
[2025-02-25 22:25] LABS: Potassium* 3.0 mmol/L (3.6-5.1)
[2025-02-25 22:27] VITALS: BP 154/79; PULSE 84; RESP 20; TEMP 36.6
[2025-02-25 22:31] VITALS: BMI 48.4
--- NOTE | 2025-02-25 22:45 | PM.IMHP1 ---
Assessment and Plan Assessment and plan (1) Cellulitis: Problem comment: -RLE -CT shows thin elongated subcutaneous fluid collection. No sign of osteomyelitis -no leukocytosis, CRP trending down from last week -continue ceftriaxone as initiated in ED -aerobic wound culture collected in ED, pending. MRSA ordered -ED provider discussed with on-call ortho, in agreement with plan. Ortho consult in a.m. -wound care consult Status: Acute (2) DVT of leg (deep venous thrombosis): Problem comment: -Right lower leg, dx 02/15/2025. Previous DVT in left leg 2022 -continue apixaban 5 mg b.i.d. -outpatient follow-up for further workup (sounds as though he did not have any following his 1st DVT in 2022 - considered unprovoked) Status: Acute (3) Hypokalemia: Problem comment: -2.6 in the ED -continue potassium effervescent as initiated in the ED (3.0 after 1 dose) -KCl 40 mEq po x1 -hold chlorthalidone -recheck in a.m. Status: Acute (4) Hypertension: Problem comment: -treatment started 2010 -continue losartan, hold chlorthalidone in setting of acute hypokalemia Status: Acute Total Time Spent Total Time Spent: Today I spent 75 minutes seeing the patient, reviewing Expanse and EPIC notes/diagnostics, discussing the care plan with our care time that includes social work, PT/OT, pharmacy, RT, nursing home and documenting my impressions and plan in the medical record. Hospitalist- H&P: HPI History of Present Illness Date Seen: 02/25/25 Chief complaint: R leg blood clot in calf, swollen/infected ankle Narrative: Tariq Herbert is a 49 year old male past medical history significant for hypertension, obesity, recurrent DVT is admitted to the medical floor from the ED for further management right lower extremity cellulitis in setting of acute DVT. Patient is seen with significant other at bedside. Reports onset of right medial malleolus pain on 01/31/2025. Never any calf pain. Reports that within 24 hours it became significantly worse and quite swollen. Denies any sort of trauma or injury. Denies any sort of bug bite or wound. No recreational or work related injury. Has been seen in multiple outpatient settings for evaluation since onset and treated with steroids, indomethacin with normal uric acid levels, and then on 02/15/25 had a Doppler ultrasound showing an occlusive DVT in the right peroneal veins, upper and mid posterior tibial veins with nonocclusive DVT in the distal popliteal vein and distal posterior tibial veins. He was started on apixaban and is currently on 5 mg b.i.d.. No course of antibiotics during these visits. Reports pain is 4/10 at rest and increased is 7/10 with weight-bearing. Currently using a kneeling scooter. Denies headaches or dizziness. Denies chest pain or shortness of breath over the course of time. No dyspnea on exertion. No decrease in activity. No fever in ED. No nausea vomiting or change in stools. DVT LLE 2022. No previous history chronic venous insufficiency or lymphedema. PCP is Dr. Iverson. Never a smoker. Occasional alcohol use. Review of Systems Narrative: REVIEW OF SYSTEMS: Complete review of systems performed and negative unless otherwise stated in HPI or below. Medical Decision Making Medical Decision Making Code Status: Full code Has patient completed a Health Care Directive: No PFSH PFSH Surgical History History of vasectomy (04/14/12) ?Z98.52 - Vasectomy status (ICD-10) History of tonsillectomy (08/04/09) ?Z90.89 - Acquired absence of other organs (ICD-10) Social History Smoking Status: Never smoker Do you use any of these nicotine containing products: None Second hand tobacco smoke exposure: No How often do you have a drink containing alcohol: never How often do you have six or more drinks on one occasion: Never AUDIT-C Alcohol total score: 0 Non-prescribed substance use: denies use service: No Meds Home Medications and Allergies Home Medications ?Medication ?Instructions ?Recorded ?Confirmed ?Type chlorthalidone 50 mg tablet 50 mg PO DAILY #30 tabs 02/06/25 02/15/25 Rx losartan 100 mg tablet 100 mg PO DAILY #30 tabs 02/06/25 02/15/25 Rx indomethacin 50 mg capsule 50 mg PO BID 02/10/25 02/15/25 History apixaban 5 mg (74 tabs) tablets in See Rx Instructions PO .COMPLEX 02/15/25 Rx a dose pack #74 ea Allergies Allergy/AdvReac Type Severity Reaction Status Date / Time lisinopril Allergy Intermediate truncal Verified 02/25/25 21:17 [facility] Allergy malignant Uncoded 02/25/25 21:17 hyperthermia Exam Narrative: Exam Narrative: PHYSICAL EXAM General: Pleasant, conversant, NAD HEENT: Normocephalic, atraumatic, sclera white, EOMI, oral mucosa moist Cardiovascular: RRR, S1S2. No pitting edema Pulmonary: CTA bilaterally without rhonchi, rales, expiratory wheezes. No dyspnea Abdominal: Soft, nondistended, NTTP Neurological: Alert, answering questions appropriately, cranial nerves intact, no focal findings Extremities: Right medial malleolus with erythema which is outlined, moderate swelling, fluctuant and tender on palpation. Neurovascularly intact Skin: Warm, dry. Right medial malleolus with superficial desquamation, minimal serous drainage Const: Vital Signs, click to edit/add: Vital Signs - 24 hr 02/25/25 17:53 02/25/25 19:52 02/25/25 22:08 Temperature 98 F 98 F Pulse Rate [Pulse Oximeter] 100 84 Respiratory Rate 20 20 Blood Pressure [Ri ght Upper Arm] 133/80 154/79 H Pulse Oximetry 97 97 97 Oxygen Delivery Me thod Room Air Room Air 02/25/25 22:27 Temperature 98 F Pulse Rate [Pulse Oximeter] 84 Respiratory Rate 20 Blood Pressure [Ri ght Upper Arm] 154/79 H Pulse Oximetry [facility]: Result Labs Labs: Short CBC 02/25/25 Range/Units 20:10 WBC 8.80 (4.50-11.00) K/uL Hgb 13.6 (13.5-17.5) gm/dL Hct 41.7 (37.0-53.0) % Plt Count 291 (140-440) K/uL BMP 02/25/25 02/25/25 20:10 22:08 Sodium 135 Potassium 2.6 L* 3.0 L Chloride 97 Carbon Dioxide 28 BUN 26 H Creatinine 1.1 Glucose [address] ankle: Attestation: I have reviewed the pertinent imaging results. Radiologist's impression: Bones: Alignment is normal. No sign of acute fracture. No suspicious bony lesions. Joints: Mild arthritic changes. Soft tissues: Relatively severe medial swelling. A thin elongated subcutaneous fluid collection also present. IMPRESSION: Severe medial swelling with a thin elongated subcutaneous fluid collection which can not be further characterized on this exam. No sign of osteomyelitis. CTA chest 02/15/2025: Attestation: I have reviewed the pertinent imaging results. Radiologist's impression: PE: Well-timed contrast bolus. There is very mild respiratory motion artifact. No pulmonary emboli seen. The distal most branches are somewhat limited by motion. Normal caliber main pulmonary artery. Normal sized right heart chambers. No reflux of contrast below the diaphragm. Airway: Expiratory appearance of the airway. Lungs: Expiratory appearance of the lungs. Mild respiratory motion artifact. Calcified granulomas. No consolidations. Normal appearance of the pulmonary interstitium. Pleura: No pleural effusion. No pneumothorax. Lymph nodes: Coarsely calcified right hilar and right lower mediastinal lymph nodes consistent with an old healed granulomatous infection. No enlarged or worrisome lymph nodes.. Mediastinum: No pneumomediastinum. No mass. Heart and great vessels: No pericardial effusion. Normal cardiac chamber size. No calcified atherosclerotic plaques. No aortic aneurysm. Chest wall: Normal. No masses. Upper abdomen: Normal. Bones: No fractures. No focal bone lesions. IMPRESSION: 1. No pulmonary embolism. 2. Deeply expiratory appearance of the airway and lungs. Venous duplex 02/15/2025: Attestation: I have reviewed the pertinent imaging results. Radiologist's impression: Deep veins: Occlusive DVT in the right peroneal veins upper and mid posterior tibial veins with nonocclusive DVT in the distal popliteal vein and distal posterior tibial veins. The imaged right common femoral, deep femoral, femoral, proximal popliteal and contralateral left common femoral veins are otherwise patent and free of clot. Superficial veins: The imaged right great saphenous vein is patent and free of clot. Extravascular findings: No significant incidental findings. IMPRESSION: Occlusive DVT in the right peroneal veins, upper and mid posterior tibial veins with nonocclusive DVT in the distal popliteal vein and distal posterior tibial veins.
[2025-02-25 23:00] VITALS: BP 152/92; PULSE 90; RESP 18; TEMP 36.6; O2SAT 96
[2025-02-25] MEDS: POTASSIUM CHLORIDE 10 MEQ CAPSULE ER 40 MEQ PO (23:02)
[2025-02-26] VITALS (7 sets, daily range): BP systolic 139–158; BP diastolic 65–77; PULSE 84–88; RESP 16–20; TEMP 36.8–37; O2SAT 95–100
[2025-02-26] MEDS: POTASSIUM BICARB 25 MEQ EFFERVESCENT TAB PO (00:46)
[2025-02-26] MEDS: MELATONIN 3 MG TABLET PO (00:46)
--- NOTE | 2025-02-26 00:58 | PC.NURSE ---
Addendum entered by Althea See RN 02/26/25 01:03: RLE cellulitis Original Note:
[2025-02-26] MEDS: ACETAMINOPHEN 325 MG TABLET 1000 MG PO (02:35)
[2025-02-26 06:21] LABS: Hematocrit* 39.4 % (37.0-53.0); Hemoglobin* 12.9 gm/dL (13.5-17.5); Mean Corpuscular HGB Conc 33 gm/dL (32-36); Mean Corpuscular Hemoglobin 27 pg (26-34); Mean Corpuscular Volume 83 fL (80-100); Red Blood Count* 4.75 m/uL (4.30-5.90); White Blood Count* 7.91 K/uL (4.50-11.00)
[2025-02-26 06:23] LABS: Slide Review Reflex No
[2025-02-26 06:28] LABS: Chloride* 100 mmol/L (96-114)
[2025-02-26 06:29] LABS: Potassium* 3.1 mmol/L (3.6-5.1); Sodium* 136 mmol/L (135-149)
[2025-02-26 06:31] LABS: Blood Urea Nitrogen* 17 mg/dL (5-24); Creatinine* 0.8 mg/dL (0.5-1.5); Est. Creatinine Clearance* 117.86; Estimated Glomerular Filt Rate 110 ml/min
[2025-02-26 06:32] LABS: Anion Gap 6 mEq/L (7-15); Calcium* 9.0 mg/dL (8.4-10.6); Carbon Dioxide* 30 mmol/L (20-32); Glucose* 103 mg/dL (60-115)
--- NOTE | 2025-02-26 06:32 | PC.NURSE ---
(Shift 23-07) ?Pt alert and oriented. Pt up with SBA with knee scooter. Pt had complaints of pain 0-5; see EMAR for intervention. Pt has cellulitis to RLE; see nurse note for picture.?
[2025-02-26] MEDS: LOSARTAN POTASSIUM 50 MG TABLET 100 MG PO (08:27)
[2025-02-26] MEDS: ACETAMINOPHEN 500 MG TABLET 1000 MG PO ×2 (08:28→18:19)
[2025-02-26] MEDS: APIXABAN 5 MG TABLET PO (08:29)
[2025-02-26] MEDS: VANCOMYCIN 1.75 GM/350 ML 1.75 GM/350 ML PIGGYBACK IVPB ×2 (09:46→18:04)
[2025-02-26] MEDS: SODIUM CHLORIDE 0.9 % (FLUSH) 10 ML SYRINGE 5 ML IVF ×2 (09:51→21:38)
[2025-02-26] MEDS: POTASSIUM CHLORIDE 10 MEQ CAPSULE ER 60 MEQ PO ×2 (12:09→18:02)
--- NOTE | 2025-02-26 13:50 | CRLHL7_ITS ---
For Patients: As a result of the 21st Century Cures Act, medical imaging exams and procedure reports are released immediately into your electronic medical record. You may view this report before your referring provider. If you have questions, please contact your health care provider. Indication: Swelling and cellulitis at the medial ankle. Concern for abscess and osteomyelitis. Technique: MRI of the right ankle performed with and without intravenous contrast (30 milliliters Dotarem). 1.5 robles MRI. Comparison: 02/25/2025 CT of the right ankle Findings: Fluid: Small talonavicular joint effusion with prominent synovitis communicating with a mildly irregular peripherally enhancing fluid collection in the subcutaneous fat of the medial ankle measuring 4 x 0.8 centimeters (/). Bone and cartilage: Confluent abnormal marrow edema, enhancement, and low T1 signal intensity in the talar head, talar neck, and navicular bone. Moderate degenerative change of the Lisfranc joint. Mild degenerative change in the midfoot. Small amount of focal subcortical cystic change in the calcaneus adjacent to the posterior subtalar joint. Mild degenerative change of the tibiotalar joint. Large plantar and small posterior calcaneal enthesophyte. Ligaments: Visualized ligaments are grossly intact. Tendons: Visualized tendons are grossly intact. Sinus tarsi: Edema signal without effacement of the fatty signal in the sinus tarsi. Plantar fascia: Low-grade partial-thickness tearing of the proximal central cord of the plantar fascia at the attachment to the calcaneus. Miscellaneous: Diffuse soft tissue edema throughout the field of view. Diffuse atrophy and edema of the visualized musculature with preferential atrophy of the abductor digiti minimi muscle compatible with a nonacute Covarrubias neuropathy. Impression: 1. Small talonavicular joint effusion with prominent synovitis communicating with a peripherally enhancing fluid collection in the subcutaneous fat of the medial ankle measuring 4 centimeters. Findings are suspicious for septic arthritis and abscess. Consider correlation with aspiration results. 2. Confluent abnormal marrow signal and enhancement in the talar head, talar neck, and navicular bone which is most suspicious for osteomyelitis rather than other etiologies such as contusion or arthropathy given the reported clinical context. 3. Diffuse soft tissue edema throughout the field of view which could represent cellulitis in the appropriate clinical context. 4. Low-grade partial tear of the proximal central cord of the plantar fascia. Large plantar calcaneal enthesophyte. 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 5. Multiple additional findings as detailed above. Dictated by Ismael Pack MD @ 02/26/2025 6:35:49 PM (Electronically Signed)
--- NOTE | 2025-02-26 13:54 | P.IMPN_ITS ---
Assessment and Plan Assessment and plan (1) Cellulitis: Problem comment: -RLE -CT shows thin elongated subcutaneous fluid collection. No sign of osteomyelitis -no leukocytosis, CRP trending down from last week -continue ceftriaxone as initiated in ED -aerobic wound culture collected in ED, pending. MRSA ordered -ED provider discussed with on-call ortho, in agreement with plan. Ortho consult in a.m. -wound care consult -02/26: We consulted Podiatry Dr. Osiris grajeda who recommended an MRI of his ankle, which will be done today. -Changed his antibiotic to cover MRSA to vancomycin IV. Status: Acute (2) DVT of leg (deep venous thrombosis): Problem comment: -Right lower leg, dx 02/15/2025. Previous DVT in left leg 2022 -continue apixaban 5 mg b.i.d. -outpatient follow-up for further workup (sounds as though he did not have any following his 1st DVT in 2022 - considered unprovoked) Status: Acute (3) Hypokalemia: Problem comment: -2.6 in the ED -continue potassium effervescent as initiated in the ED (3.0 after 1 dose) -KCl 40 mEq po x1 -hold chlorthalidone -potassium chloride 60 mEq for 2 more doses and recheck in a.m. Status: Acute (4) Hypertension: Problem comment: -treatment started 2010 -continue losartan, hold chlorthalidone in setting of acute hypokalemia Status: Acute Total Time Spent Total Time Spent: Today I spent 45 minutes seeing the patient, reviewing Expanse and EPIC notes/diagnostics, discussing the care plan with our care time that includes social work, PT/OT, pharmacy, RT, assisted and documenting my impressions and plan in the medical record. Subjective Date Seen: 02/26/25 Interval history: Patient seen and examined at bedside today. He denies any trauma or insect bites. He denies walking barefoot. We consulted Podiatry Dr. Osiris grajeda who recommended an MRI of his ankle, which will be done today. Changed his antibiotic to cover MRSA to vancomycin IV. Exam Narrative: Exam Narrative: Physical exam GENERAL: Comfortable, no acute distress. HEAD AND NECK: Atraumatic, normocephalic CARDIOVASCULAR: RRR. Normal S1, S2. No murmurs. RESPIRATORY: Clear to auscultation B/L. Good air entry B/L. NEUROLOGY: Alert, awake, oriented X 3. Normal speech. Extremities: Swollen, red and tender right medial malleolus. Intact p eripheral pulses. PSYCH: Normal mood, normal affect. Const: Vital Signs, click to edit/add: Vital Signs - 24 hr 02/25/25 17:53 02/25/25 19:52 02/25/25 22:08 Temperature 98 F 98 F Pulse Rate [Pulse Oximeter] 100 84 Respiratory Rate 20 20 Blood Pressure [Le ft Arm] Blood Pressure [Ri ght Upper Arm] 133/80 154/79 H Pulse Oximetry 97 97 97 Oxygen Delivery Nm thod Room Air Room Air 02/25/25 22:27 02/25/25 23:00 02/25/25 23:00 Temperature 98 F 98 F 98 F Pulse Rate [Pulse Oximeter] 84 90 90 Respiratory Rate 20 18 18 Blood Pressure [Le ft Arm] 152/92 H 152/92 H Blood Pressure [Ri ght Upper Arm] 154/79 H Pulse Oximetry 96 96 Oxygen Delivery Nm thod Room Air Room Air 02/26/25 02:33 02/26/25 07:00 02/26/25 07:00 Temperature 98.3 F 98.3 F Pulse Rate [Pulse Oximeter] 85 88 88 Respiratory Rate 18 18 18 Blood Pressure [Le ft Arm] 158/73 H 139/65 Blood Pressure [Ri ght Upper Arm] Pulse Oximetry 97 100 Oxygen Delivery Nm thod Room Air Room Air 02/26/25 11:00 Temperature 98.3 F Pulse Rate [Pulse Oximeter] 88 Respiratory Rate 16 Blood Pressure [Le ft Arm] 155/74 H Blood Pressure [Ri ght Upper Arm] Pulse Oximetry 97 Oxygen Delivery Nm thod Room Air Labs Labs: Laboratory Results - last 24 hr 02/25/25 02/25/25 02/26/25 20:10 22:08 05:48 WBC 8.80 7.91 RBC 5.03 4.75 Hgb 13.6 12.9 L Hct 41.7 39.4 MCV 83 83 MCH 27 27 MCHC 33 33 RDW Coeff of Cyndee 11.8 Plt Count 291 255 Neut % (Auto) 70.2 Lymph % (Auto) 20.0 Toombs % (Auto) 7.8 Eos % (Auto) 1.7 Baso % (Auto) 0.1 Neut # (Auto) 6.17 Lymph # (Auto) 1.76 [place]bs # (Auto) 0.70 Eos # (Auto) 0.15 Baso # (Auto) 0.01 Abs Immat Gran (auto) 0.02 Imm/Tot Granulo (auto) 0.2 Sodium 135 136 Potassium 2.6 L* 3.0 L 3.1 L Chloride 97 100 Carbon Dioxide 28 30 Anion Gap 10 6 L BUN 26 H 17 Creatinine 1.1 0.8 Estimated Creat Clear 85.72 117.86 Estimated GFR 83 110 Glucose 100 103 Calcium 9.2 9.0 C-Reactive Protein 5.2 H 5.0 H
--- NOTE | 2025-02-26 15:18 | PC.NURSE ---
end of shift: VSS, RA, PRN Tylenol for pain administered w/relief. Patient is SBA with knee scooter to BR. Afebrile this shift. Cellulitis to right ankle open to air.
--- NOTE | 2025-02-26 18:34 | PC.NURSE ---
Pt is doing well. VSS. Pain controlled with PRN medications, elevation and ice. Transferring independently in room. Right ankle is noted to be unchanged in color or size.
--- NOTE | 2025-02-26 19:14 | P.PODCN_ITS ---
[facility] - Podiatry Data of Consult Time Seen by Provider: 18:30 Date Seen: 02/26/25 Consult date: 02/26/25 Requesting physician: MD Jacqui Neves MD Primary care provider: Rajesh Iverson MD Consult Narrative Reason for consult: right foot infection Narrative: Tariq Herbert is a 49 year old male past medical history significant for hypertension, obesity, recurrent DVT is admitted to the medical floor from the ED for further management right lower extremity cellulitis in setting of acute DVT. He is seen bedside this evening for evaluation of his worsening ankle pain and infection. He has just returned from his MRI. He is currently comfortable with pain controlled as long as he does not walk on the foot. He has had multiple visits with initial workup for gout with no improvement. He currently denies any fever, chills, nausea, vomiting, fever, chest pain shortness of breath. He does not relate any calf pain that preceded his current symptoms. From H&P: Reports onset of right medial malleolus pain on 01/31/2025. Never any calf pain. Reports that within 24 hours it became significantly worse and quite swollen. Denies any sort of trauma or injury. Denies any sort of bug bite or wound. No recreational or work related injury. Has been seen in [facility] outpatient settings for evaluation since onset and treated with steroids, indomethacin with normal uric acid levels, and then on 02/15/25 had a Doppler ultrasound showing an occlusive DVT in the right peroneal veins, upper and mid posterior tibial veins with nonocclusive DVT in the distal popliteal vein and distal posterior tibial veins. He was started on apixaban and is currently on 5 mg b.i.d.. No course of antibiotics during these visits. Reports pain is 4/10 at rest and increased is 7/10 with weight-bearing. Currently using a kneeling scooter. Denies headaches or dizziness. Denies chest pain or shortness of breath over the course of time. No dyspnea on exertion. No decrease in activity. No fever in ED. No nausea vomiting or change in stools. DVT LLE 2022. No previous history chronic venous insufficiency or lymphedema. PCP is Dr. Iverson. Never a smoker. Occasional alcohol use. cc:: CC: Majo Dallas MD Review of Systems Status of ROS: Reports: 10 or more systems reviewed and unremarkable except as noted in History and below [facility] Surgical History History of vasectomy (04/14/12) ?Z98.52 - Vasectomy status (ICD-10) History of tonsillectomy (08/04/09) ?Z90.89 - Acquired absence of other organs (ICD-10) Social History What is your current living situation?: I presently have a place to live Problems where you live: no known problems Problems where you live details: NA In the past 12 months, utilities in danger of being shut off: no In past 12 months, lack of transportation kept you from medical appts, meetings, work, or getting things needed for daily living: no In the past 12 mos, have been you worried that your food would run out before you had money to buy more?: never true In the past 12 mos, the food you bought just didn't last and you didn't have money to buy more?: never true Highest level of school completed/degree received: high school graduate Smoking Status: Never smoker Do you use any of these nicotine containing products: None Second hand tobacco smoke exposure: No How often do you have a drink containing alcohol: never How often do you have six or more drinks on one occasion: Never AUDIT-C Alcohol total score: 0 Non-prescribed substance use: denies use Caffeine: No How often does anyone, including family, friends and others, physically hurt you : never How often does anyone, including family, friends and others, insult or talk down to you: never How often does anyone, including family, friends and others, threaten you with harm: never How often does anyone, including family, friends and others, scream or curse at you: never service: No Exam Narrative: Exam Narrative: general: No distress resting comfortably. Vascular: Palpable dorsalis pedis pulse. Nonpalpable posterior tibial pulse due to edema. Capillary fill time was 3 seconds all digits. Neuro: Sensate to light touch throughout. Musculoskeletal: Pain with range of motion of the talonavicular joint. normal muscle strength. No gross deformity. Derm: intense erythema to the medial ankle with fluctuance noted. Increased warmth to the medial ankle and foot. Labs: ESR 55, CRP 5.0, white blood cell count 11.84 down to 8.8 and now 7.91 Venous ultrasound 02/15/2025: positive for lower extremity DVT right leg MRI Right ankle: Indication: Swelling and cellulitis at the medial ankle. Concern for abscess and osteomyelitis. Technique: MRI of the right ankle performed with and without intravenous contrast (30 milliliters Dotarem). 1.5 robles MRI. Comparison: 02/25/2025 CT of the right ankle Findings: Fluid: Small talonavicular joint effusion with prominent synovitis communicating with a mildly irregular peripherally enhancing fluid collection in the subcutaneous fat of the medial ankle measuring 4 x 0.8 centimeters (4/). Bone and cartilage: Confluent abnormal marrow edema, enhancement, and low T1 signal intensity in the talar head, talar neck, and navicular bone. Moderate degenerative change of the Lisfranc joint. Mild degenerative change in the midfoot. Small amount of focal subcortical cystic change in the calcaneus adjacent to the posterior subtalar joint. Mild degenerative change of the tibiotalar joint. Large plantar and small posterior calcaneal enthesophyte. Ligaments: Visualized ligaments are grossly intact. Tendons: Visualized tendons are grossly intact. Sinus tarsi: Edema signal without effacement of the fatty signal in the sinus tarsi. Plantar fascia: Low-grade partial-thickness tearing of the proximal central cord of the plantar fascia at the attachment to the calcaneus. Miscellaneous: Diffuse soft tissue edema throughout the field of view. Diffuse atrophy and edema of the visualized musculature with preferential atrophy of the abductor digiti minimi muscle compatible with a nonacute Covarrubias neuropathy. Impression: 1. Small talonavicular joint effusion wi th prominent synovitis communicating with a peripherally enhancing fluid collection in the subcutaneous fat of the medial ankle measuring 4 centimeters. Findings are suspicious for septic arthritis and abscess. Consider correlation with aspiration results. 2. Confluent abnormal marrow signal and enhancement in the talar head, talar neck, and navicular bone which is most suspicious for osteomyelitis rather than other etiologies such as contusion or arthropathy given the reported clinical context. 3. Diffuse soft tissue edema throughout the field of view which could represent cellulitis in the appropriate clinical context. 4. Low-grade partial tear of the proxima l central cord of the plantar fascia. Large plantar calcaneal enthesophyte. 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 5. Multiple additional findings as zachary led above. Dictated by Ismael Pack MD @ 02/26/2025 6:35:49 PM assessment: Septic talonavicular joint right, abscess right ankle/foot, DVT right lower leg Plan: I discussed the MRI findings with the patient. I reviewed with him that the infection is emanating from the talonavicular joint and that is has formed an abscess to the medial foot. He is in need of surgical intervention to drain the abscess and washout the joint. We also discussed that the MRI indicates there may be infection within the talus and navicular bones. He will likely need long-term IV antibiotics. Chances are quite good that he will end up with significant arthritic changes within the talonavicular joint. He confirms that he does have a history of malignant hyperthermia. he has been on Eliquis and he will need approximately 24 hours off medication before surgery. We will switch him over to heparin drip for better control His anticoagulation. This will be stopped for prior to surgery. We will discuss with Anesthesia options for making comfortable during surgery. Plan on proceeding with surgery tomorrow night at 5:00 p.m.. All questions were answered. 60 minutes was spent reviewed the chart, examined the patient, discussing options and coordinating care. Const: Vital Signs, click to edit/add: Vital Signs - 24 hr 02/25/25 19:52 02/25/25 22:08 02/25/25 22:27 Temperature 98 F 98 F Pulse Rate [Pulse Oximeter] 84 84 Respiratory Rate 20 20 Blood Pressure [Le ft Arm] Blood Pressure [Ri ght Upper Arm] 154/79 H 154/79 H Pulse Oximetry 97 97 Oxygen Delivery Me thod Room Air 02/25/25 23:00 02/25/25 23:00 02/26/25 02:33 Temperature 98 F 98 F 98.3 F Pulse Rate [Pulse Oximeter] 90 90 85 Respiratory Rate 18 18 18 Blood Pressure [Le ft Arm] 152/92 H 152/92 H 158/73 H Blood Pressure [Ri ght Upper Arm] Pulse Oximetry 96 96 97 Oxygen Delivery Me thod Room Air Room Air Room Air 02/26/25 07:00 02/26/25 07:00 02/26/25 11:00 Temperature 98.3 F 98.3 F Pulse Rate [Pulse Oximeter] 88 88 88 Respiratory Rate 18 18 16 Blood Pressure [Le ft Arm] 139/65 155/74 H Blood Pressure [Ri ght Upper Arm] Pulse Oximetry 100 97 Oxygen Delivery Me thod Room Air Room Air 02/26/25 15:00 Temperature 98.4 F Pulse Rate [Pulse Oximeter] 86 Respiratory Rate 18 Blood Pressure [Le ft Arm] 154/67 H Blood Pressure [Ri ght Upper Arm] Pulse Oximetry 96 Oxygen Delivery Me thod Room Air Documenting provider has reviewed patient's vital signs: yes Nail Debridement Qualifies If: Qualifiers If:: A patient qualifies for nail debridement if they have: 1 class A finding (Q7) 2 class B findings (Q8) OR 1 class B & 2 class C findings in addition to a primary condition (Q9)
[2025-02-26] MEDS: PIPERACILLIN/TAZOBACTAM 3.375 GM in 0.9 % SODIUM CHLORIDE Mini-bag 100 ML IVPB (21:28)
[2025-02-26] MEDS: HEPARIN 25,000 UNIT/500 ML BAG 30 UNIT IV (21:41)
[2025-02-26] MEDS: HEPARIN 5,000 UNIT/0.5 ML INJ 10000 UNIT IVP (21:42)
[2025-02-26 21:44] LABS: Hematocrit* 39.2 % (37.0-53.0); Hemoglobin* 12.7 gm/dL (13.5-17.5); Mean Corpuscular HGB Conc 32 gm/dL (32-36); Mean Corpuscular Hemoglobin 27 pg (26-34); Mean Corpuscular Volume 85 fL (80-100); Red Blood Count* 4.63 m/uL (4.30-5.90); Slide Review Reflex No; White Blood Count* 8.34 K/uL (4.50-11.00)
[2025-02-26 22:01] LABS: INR 1.05 (0.91-1.10); Prothrombin Time 14.6 Seconds
[2025-02-27] VITALS (18 sets, daily range): BP systolic 120–166; BP diastolic 55–101; PULSE 56–84; RESP 14–26; TEMP 36.4–37.1; O2SAT 91–100
[2025-02-27] MEDS: VANCOMYCIN 1.75 GM/350 ML 1.75 GM/350 ML PIGGYBACK IVPB ×2 (01:27→10:27)
[2025-02-27] MEDS: ACETAMINOPHEN 500 MG TABLET 1000 MG PO ×3 (01:27→14:30)
[2025-02-27] MEDS: PIPERACILLIN/TAZOBACTAM 3.375 GM in 0.9 % SODIUM CHLORIDE Mini-bag 100 ML IVPB ×4 (04:19→21:36)
[2025-02-27 04:20] LABS: Hematocrit* 38.4 % (37.0-53.0); Hemoglobin* 12.4 gm/dL (13.5-17.5); Mean Corpuscular HGB Conc 32 gm/dL (32-36); Mean Corpuscular Hemoglobin 28 pg (26-34); Mean Corpuscular Volume 85 fL (80-100); Red Blood Count* 4.51 m/uL (4.30-5.90); White Blood Count* 6.75 K/uL (4.50-11.00)
[2025-02-27 04:25] LABS: Slide Review Reflex No
[2025-02-27 04:33] LABS: Chloride* 103 mmol/L (96-114); Potassium* 3.4 mmol/L (3.6-5.1); Sodium* 138 mmol/L (135-149)
[2025-02-27 04:36] LABS: Anion Gap 6 mEq/L (7-15); Blood Urea Nitrogen* 13 mg/dL (5-24); Calcium* 9.0 mg/dL (8.4-10.6); Carbon Dioxide* 29 mmol/L (20-32); Creatinine* 0.7 mg/dL (0.5-1.5); Estimated Glomerular Filt Rate 114 ml/min; Glucose* 104 mg/dL (60-115)
[2025-02-27 04:44] LABS: INR 0.99 (0.91-1.10); Prothrombin Time 13.9 Seconds
[2025-02-27] MEDS: HEPARIN 5,000 UNIT/0.5 ML INJ 9150 UNIT IVP (06:15)
--- NOTE | 2025-02-27 07:53 | PC.NURSE ---
End of shift note [id number]: Pt A&Ox4 and able to make needs known. He has been denying nausea when asked and has been NPO since midnight. Heparin drip titrated and running per protocol. Pt requested to sleep in recliner overnight. PRN Tylenol given for pain control. He is transferring with SBA with use of knee scooter. VSS- pt has been afebrile and on RA throughout the shift. CMS to RLE intact. Pt has been NPO since midnight in prep for surgery today. Call light within reach.
[2025-02-27] MEDS: LOSARTAN POTASSIUM 50 MG TABLET 100 MG PO (08:12)
[2025-02-27] MEDS: POTASSIUM CHLORIDE 10 MEQ/100 ML PIGGYBACK 100 MEQ IVPB ×3 (09:35→12:30)
[2025-02-27] MEDS: SODIUM CHLORIDE 0.9 % (FLUSH) 10 ML SYRINGE 5 ML IVF ×2 (09:36→12:29)
--- NOTE | 2025-02-27 11:15 | PM.IMPN1 ---
Assessment and Plan Assessment and plan (1) Septic arthritis: Problem comment: 02/27: Rt ankle MRI findings on 02/26 : Small talonavicular joint effusion with prominent synovitis communicating with a peripherally enhancing fluid collection in the subcutaneous fat of the medial ankle measuring 4 centimeters. Findings are suspicious for septic arthritis and abscess. -on IV vancomycin and Zosyn -will need cultures and sensitivities of synovial fluid aspiration during surgery -podiatry following -Pt will likely need long-term IV antibiotics. -Pt switched to heparin drip (recent DVT). Status: Suspected (2) Cellulitis: Problem comment: -RLE -CT shows thin elongated subcutaneous fluid collection. No sign of osteomyelitis -no leukocytosis, CRP trending down from last week -continue ceftriaxone as initiated in ED -aerobic wound culture collected in ED, pending. MRSA ordered -ED provider discussed with on-call ortho, in agreement with plan. Ortho consult in a.m. -wound care consult -02/26: We consulted Podiatry Dr. Osiris grajeda who recommended an MRI of his ankle, which will be done today. -Changed his antibiotic to cover MRSA to vancomycin IV. 02/27: MRI findings :the infection is emanating from the talonavicular joint and that is has formed an abscess to the medial foot. He is in need of surgical intervention to drain the abscess and washout the joint. We also discussed that the MRI indicates there may be infection within the talus and navicular bones. He will likely need long-term IV antibiotics. Chances are quite good that he will end up with significant arthritic changes within the talonavicular joint. He confirms that he does have a history of malignant hyperthermia. he has been on Eliquis and he will need approximately 24 hours off medication before surgery. We will switch him over to heparin drip for better control His anticoagulation. This will be stopped for prior to surgery. Status: Acute (3) Effusion of talonavicular joint: Problem comment: 02/27: Rt ankle MRI findings on 02/26 : Small talonavicular joint effusion with prominent synovitis communicating with a peripherally enhancing fluid collection in the subcutaneous fat of the medial ankle measuring 4 centimeters. Findings are suspicious for septic arthritis and abscess. -on IV vancomycin and Zosyn -will need cultures and sensitivities of synovial fluid aspiration during surgery -podiatry following -Pt will likely need long-term IV antibiotics. -Pt switched to heparin drip (recent DVT). Status: Acute (4) Acute osteomyelitis: Problem comment: -MRI Rt ankle: Confluent abnormal marrow signal and enhancement in the talar head, talar neck, and navicular bone which is most suspicious for osteomyelitis. -on IV vancomycin and Zosyn -will need cultures and sensitivities of synovial fluid aspiration during surgery -Pt will likely need long-term IV antibiotics. -podiatry following Status: Suspected (5) DVT of leg (deep venous thrombosis): Problem comment: -Right lower leg, dx 02/15/2025. Previous DVT in left leg 2022 -continue apixaban 5 mg b.i.d. -outpatient follow-up for further workup (sounds as though he did not have any following his 1st DVT in 2022 - considered unprovoked) -02/26: -Pt switched to heparin drip (recent DVT) prior to surgery on February 27, will need to stop heparin 4 hours prior to surgery. Status: Acute (6) Hypokalemia: Problem comment: -2.6 in the ED -continue potassium effervescent as initiated in the ED (3.0 after 1 dose) -KCl 40 mEq po x1 -hold chlorthalidone -potassium chloride 60 mEq for 2 more doses and recheck in a.m. 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 Subjective Date Seen: 02/27/25 Interval history: Patient seen and examined at bedside today. He states that he feels better. Discussed with the patient septic arthritis and osteomyelitis and treatment of these medical problems and patient is in agreement. Patient is on heparin drip for recent DVT. Surgery today afternoon. Exam Narrative: Exam Narrative: GENERAL: Comfortable, no acute distress. HEAD AND NECK: Atraumatic, normocephalic CARDIOVASCULAR: RRR. Normal S1, S2. No murmurs. RESPIRATORY: Clear to auscultation B/L. Good air entry B/L. NEUROLOGY: Alert, awake, oriented X 3. Normal speech. Extremities: Swollen, red and tender right medial malleolus. Intact peripheral pulses. PSYCH: Normal mood, normal affect. Const: Vital Signs, click to edit/add: Vital Signs - 24 hr 02/26/25 15:00 02/26/25 19:00 02/26/25 23:00 Temperature 98.4 F 98.6 F Pulse Rate [Pulse Oximeter] 86 87 84 Respiratory Rate 18 18 20 Blood Pressure [Le ft Arm] 154/67 H 150/77 H Pulse Oximetry 96 97 Oxygen Delivery Me thod Room Air Room Air 02/26/25 23:43 02/27/25 03:14 02/27/25 07:00 Temperature 98.6 F 98.3 F 97.5 F L Pulse Rate [Pulse Oximeter] 88 84 69 Respiratory Rate 18 20 26 H Blood Pressure [Le ft Arm] 147/67 H 127/68 144/70 H Pulse Oximetry 95 94 97 Oxygen Delivery Me thod Room Air Room Air Room Air Labs Labs: Laboratory Results - last 24 hr 02/26/25 02/27/25 21:30 04:05 WBC 8.34 6.75 RBC 4.63 4.51 Hgb 12.7 L 12.4 L Hct 39.2 38.4 MCV 85 85 MCH 27 28 MCHC 32 32 Plt Count 255 239 INR 1.05 0.99 APTT 32 36 H Sodium 138 Potassium 3.4 L Chloride 103 Carbon Dioxide 29 Anion Gap 6 L BUN 13 Creatinine 0.7 Estimated Creat Clear 134.70 Estimated GFR 114 Glucose 104 Calcium 9.0 Magnesium 1.9 Imaging MR - Other: Radiologist's impression: Indication: Swelling and cellulitis at the medial ankle. Concern for abscess and osteomyelitis. Technique: MRI of the right ankle performed with and without intravenous contrast (30 milliliters Dotarem). 1.5 robles MRI. Comparison: 02/25/2025 CT of the right ankle Findings: Fluid: Small talonavicular joint effusion with prominent synovitis communicating with a mildly irregular peripherally enhancing fluid collection in the subcutaneous fat of the medial ankle measuring 4 x 0.8 centimeters (/). Bone and cartilage: Confluent abnormal marrow edema, enhancement, and low T1 signal intensity in the talar head, talar neck, and navicular bone. Moderate degenerative change of the Lisfranc joint. Mild degenerative change in the midfoot. Small amount of focal subcortical cystic change in the calcaneus adjacent to the posterior subtalar joint. Mild degenerative change of the tibiotalar joint. Large plantar and small posterior calcaneal enthesophyte. Ligaments: Visualized ligaments are grossly intact. Tendons: Visualized tendons are grossly intact. Sinus tarsi: Edema signal without effacement of the fatty signal in the sinus tarsi. Plantar fascia: Low-grade partial-thickness tearing of the proximal central cord of the plantar fascia at the attachment to the calcaneus. Miscellaneous: Diffuse soft tissue edema throughout the field of view. Diffuse atrophy and edema of the visualized musculature with preferential atrophy of the abductor digiti minimi muscle compatible with a nonacute Covarrubias neuropathy. Impression: 1. Small talonavicular joint effusion with prominent synovitis communicating with a peripherally enhancing fluid collection in the subcutaneous fat of the medial ankle measuring 4 centimeters. Findings are suspicious for septic arthritis and abscess. Consider correlation with aspiration results. 2. Confluent abnormal marrow signal and enhancement in the talar head, talar neck, and navicular bone which is most suspicious for osteomyelitis rather than other etiologies such as contusion or arthropathy given the reported clinical context. 3. Diffuse soft tissue edema throughout the field of view which could represent cellulitis in the appropriate clinical context. 4. Low-grade partial tear of the proximal central cord of the plantar fascia. Large plantar calcaneal enthesophyte. 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 5. Multiple additional findings as detailed above. Dictated by Ismael Pack MD @ 02/26/2025 6:35:49 PM
[2025-02-27] MEDS: POTASSIUM CHLORIDE 10 MEQ/100 ML PIGGYBACK 70 MEQ IVPB (14:24)
[2025-02-27] MEDS: BUPIVACAINE 0.25% 30 ML INJECTION (18:30)
--- NOTE | 2025-02-27 19:01 | P.ANES_ITS ---
Anesthesia Charges Start Date/Time Anesthesia Start Date: 02/27/25 Anesthesia Start Time: 17:23 Stop Date/Time Anesthesia Stop Date: 02/27/25 Anesthesia Stop Time: 18:55 Coding CPT Codes CPT Codes: ANESTH LOWER LEG BONE SURG - 60172 ([id number]) P3 - PATIENT W/SEVERE SYS DISEASE, QZ - HORSE BUYER SVC W/O CERTIFIED WELLNESS PROGRAM MANAGER BY
--- NOTE | 2025-02-27 19:01 | W.ANESCHARGE ---
Anesthesia Charges Start Date/Time Anesthesia Start Date: 02/27/25 Anesthesia Start Time: 17:23 Stop Date/Time Anesthesia Stop Date: 02/27/25 Anesthesia Stop Time: 18:55 Coding CPT Codes CPT Codes: ANESTH LOWER LEG BONE SURG - 46233 ([id number]) P3 - PATIENT W/SEVERE SYS DISEASE, QZ - INDUSTRIAL RELATIONS WORKER SVC W/O AUTOMATIC LATHE OPERATOR BY
--- NOTE | 2025-02-27 19:02 | W.PODPROC_ITS ---
Date of Procedure: 02/27/25 Surgeon: Stephane Gabriel DPM Pre-op Diagnosis: 1. Septic talonavicular joint right 2. Abscess right foot 3. Osteomyelitis right talus and navicular Post-op Diagnosis: 1. Septic talonavicular joint right 2. Abscess right foot 3. Osteomyelitis right talus and navicular Type of Procedure: 1. I and D right foot 2. Washout talonavicular joint right 3. Bone biopsy talus and navicular right Indications: Patient has been admitted to the hospital for right foot cellulitis. MRI c onfirmed septic talonavicular joint with abscess formation in addition to probable osteomyelitis talus and navicular bone right. I reviewed the findings with the patient and the need for surgical intervention. I reviewed the procedure and potential complications such as but not limited to: Poor wound healing, continued infection, pulmonary embolism, stroke, probable need for future surgery, possible limb loss, possible . He understands risks and written consent was obtained. All questions answered. Site was marked. Procedure Description: Patient brought the operating room placed supine position on operating table that time he was then placed under general anesthesia. 30 mL of 0.25% Marcaine plain was injected to the medial ankle. He is in prepped and draped in sterile fashion. Standard time-out protocol followed. The right foot was exsanguinated and the ankle tourniquet inflated to 250 mm Hg. Decision to use tourniquet was made due to his current anticoagulant state and the need for visualization of the tissues. Linear incision was made from the navicular tuberosity to the medial malleolus. The incision was carried down through skin subcutaneous tissues. Bleeding vessels were cauterized. The abscess pocket was identified and opened. Significant amount of purulence was expressed from the pocket. Deep culture was obtained sent for anaerobic and aerobic cultures. The abscess tracked medial and superficial to the posterior tibial tendon from the talonavicular joint. Joint capsule was partially destroyed by the infection and necrotic tissue excised. There was a significant amount of liquified adipose tissue throughout the wound which was excised with a rongeur. The talonavicular joint was identified. Dorsal medial talar head bone biopsy was obtained with a rongeur and sent to pathology in formalin. Dorsal medial navicular bone biopsy was obtained with a rongeur and sent to pathology in formalin. Articular surface appeared intact. Bone was soft but appeared viable with bleeding. The talonavicular joint and the abscessed area was then irrigated with 3500 mL normal sterile saline. All surrounding tissues appeared viable after debridement. Tourniquet was released and there was no significant active bleeding. Drain was placed through the inferior portion of the abscess tissue and fed into the dorsal aspect of the joint surface. The skin was then closed with retention sutures utilizing 2-0 and 3-0 nylon. An additional 20 mL of 0.25% Marcaine plain were injected around the incision. Sterile dressing was then applied. Patient tolerated anesthesia procedure well. He was transferred from OR to PACU vital signs stable and vascular status intact. He will continue with IV antibiotics. He will continue with anticoagulation starting at midnight tonight. Anesthesia: GETA and local Hemostasis: ankle Estimated blood loss (mL): 20 Specimens: specimen obtained, sent to pathology (Talus bone in formalin, navicular bone in formalin, anaerobic and anaerobic deep culture sent for sensitivities) Disposition: PACU
--- NOTE | 2025-02-27 19:29 | PC.NURSE ---
Pt a/o x4, assist of 1 with transfers. pt reported pain 4-6/10, pain controlled with scheduled oral meds, pt NPO throughout shift. Pt taken to surgery at 1700, pt still off floor at this time.
[2025-02-27] MEDS: LACTATED RINGERS 1000 ML 1,000 ML 75 ML IV (19:41)
[2025-02-28] VITALS (10 sets, daily range): BP systolic 129–162; BP diastolic 63–88; PULSE 80–97; RESP 16–20; TEMP 36.8–37.1; O2SAT 90–96; BMI 46.7; BMI 46.8
[2025-02-28] MEDS: ENOXAPARIN 80 MG/0.8 ML INJ 150 MG SUBCUT ×3 (00:07→20:23)
[2025-02-28] MEDS: VANCOMYCIN 1.75 GM/350 ML 1.75 GM/350 ML PIGGYBACK IVPB ×3 (01:57→17:33)
[2025-02-28] MEDS: PIPERACILLIN/TAZOBACTAM 3.375 GM in 0.9 % SODIUM CHLORIDE Mini-bag 100 ML IVPB ×4 (03:49→21:45)
--- NOTE | 2025-02-28 05:47 | PC.NURSE ---
shift note: Pt AOx4. Pt significant other bedside & active participant in support and cares. Pt has pain equal to or >8/10. PRN meds given- see EMAR. Pt denies N/V, tolerating regular diet. Pt voided x2 up to BR w/ SBA & scooter. GUALBERTO drain in place R ankle. RN observed no output & clotting in the tube. Tube from bulb; RN able to reattach w/ help from second RN. Jhoan ROMO notified; Jhoan ROMO advised RN to contact [facility] ortho PA. Ortho PA line called, advised RN to continue GUALBERTO care as ordered; stripping line and watching input. More output observed later in shift; and more ease of stripping. Jesse wrap C/D/I covering guaze dressing also C/D/I. Pt educated on pain mgmt and meds. HOB at [employer] as pt 02 dropped from 94% to <80% intermittently during HS if bed was not in 90 degree position.
[2025-02-28 07:00] LABS: Hematocrit* 38.1 % (37.0-53.0); Hemoglobin* 11.8 gm/dL (13.5-17.5); Mean Corpuscular HGB Conc 31 gm/dL (32-36); Mean Corpuscular Hemoglobin 27 pg (26-34); Mean Corpuscular Volume 87 fL (80-100); Red Blood Count* 4.40 m/uL (4.30-5.90); White Blood Count* 6.88 K/uL (4.50-11.00)
[2025-02-28 07:10] LABS: Chloride* 99 mmol/L (96-114); Potassium* 3.7 mmol/L (3.6-5.1); Sodium* 135 mmol/L (135-149)
[2025-02-28 07:13] LABS: Anion Gap 10 mEq/L (7-15); Blood Urea Nitrogen* 13 mg/dL (5-24); Calcium* 8.6 mg/dL (8.4-10.6); Carbon Dioxide* 26 mmol/L (20-32); Creatinine* 1.0 mg/dL (0.5-1.5); Est. Creatinine Clearance* 94.29; Estimated Glomerular Filt Rate 93 ml/min; Glucose* 119 mg/dL (60-115); Slide Review Reflex No
[2025-02-28] MEDS: ACETAMINOPHEN 500 MG TABLET 1000 MG PO ×2 (07:53→20:35)
[2025-02-28 08:09] LABS: Erythrocyte SedimentationRate* 53 mm/hr (2-15)
[2025-02-28] MEDS: LACTATED RINGERS 1000 ML 1,000 ML 100 ML IV (11:02)
--- NOTE | 2025-02-28 12:04 | PM.IMPN1 ---
Assessment and Plan Assessment and plan (1) Septic arthritis: Problem comment: 02/27: Rt ankle MRI findings on 02/26 : Small talonavicular joint effusion with prominent synovitis communicating with a peripherally enhancing fluid collection in the subcutaneous fat of the medial ankle measuring 4 centimeters. Findings are suspicious for septic arthritis and abscess. -on IV vancomycin and Zosyn -will need cultures and sensitivities of synovial fluid aspiration during surgery -podiatry following -Pt will likely need long-term IV antibiotics. -Pt switched to heparin drip (recent DVT). 02/28: Lovenox q12h for 3 doses. Pt will be back to OR Tuesday for secondary procedure by Podiatry and he will need PICC line post op for ongoing IV abx. Status: Suspected (2) Cellulitis: Problem comment: -RLE -CT shows thin elongated subcutaneous fluid collection. No sign of osteomyelitis -no leukocytosis, CRP trending down from last week -continue ceftriaxone as initiated in ED -aerobic wound culture collected in ED, pending. MRSA ordered -ED provider discussed with on-call ortho, in agreement with plan. Ortho consult in a.m. -wound care consult -02/26: We consulted Podiatry Dr. Osiris grajeda who recommended an MRI of his ankle, which will be done today. -Changed his antibiotic to cover MRSA to vancomycin IV. 02/27: MRI findings :the infection is emanating from the talonavicular joint and that is has formed an abscess to the medial foot. He is in need of surgical intervention to drain the abscess and washout the joint. We also discussed that the MRI indicates there may be infection within the talus and navicular bones. He will likely need long-term IV antibiotics. Chances are quite good that he will end up with significant arthritic changes within the talonavicular joint. He confirms that he does have a history of malignant hyperthermia. he has been on Eliquis and he will need approximately 24 hours off medication before surgery. We will switch him over to heparin drip for better control His anticoagulation. This will be stopped for prior to surgery. 02/28: Lovenox q12h for 3 doses. Pt will be back to OR Tuesday for secondary procedure by Podiatry and he will need PICC line post op for ongoing IV abx. Status: Acute (3) Acute osteomyelitis: Problem comment: -MRI Rt ankle: Confluent abnormal marrow signal and enhancement in the talar head, talar neck, and navicular bone which is most suspicious for osteomyelitis. -on IV vancomycin and Zosyn -will need cultures and sensitivities of synovial fluid aspiration during surgery -Pt will likely need long-term IV antibiotics. -podiatry following 02/28: Lovenox q12h for 3 doses. Pt will be back to OR Tuesday for secondary procedure by Podiatry and he will need PICC line post op for ongoing IV abx. Status: Suspected (4) Effusion of talonavicular joint: Problem comment: 02/27: Rt ankle MRI findings on 02/26 : Small talonavicular joint effusion with prominent synovitis communicating with a peripherally enhancing fluid collection in the subcutaneous fat of the medial ankle measuring 4 centimeters. Findings are suspicious for septic arthritis and abscess. -on IV vancomycin and Zosyn -will need cultures and sensitivities of synovial fluid aspiration during surgery -podiatry following -Pt will likely need long-term IV antibiotics. -Pt switched to heparin drip (recent DVT). Status: Acute (5) DVT of leg (deep venous thrombosis): Problem comment: -Right lower leg, dx 02/15/2025. Previous DVT in left leg 2022 -continue apixaban 5 mg b.i.d. -outpatient follow-up for further workup (sounds as though he did not have any following his 1st DVT in 2022 - considered unprovoked) -02/26: -Pt switched to heparin drip (recent DVT) prior to surgery on February 27, will need to stop heparin 4 hours prior to surgery. Status: Acute (6) Hypokalemia: Problem comment: -2.6 in the ED -continue potassium effervescent as initiated in the ED (3.0 after 1 dose) -KCl 40 mEq po x1 -hold chlorthalidone -potassium chloride 60 mEq for 2 more doses and recheck in a.m. 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 Subjective Date Seen: 02/28/25 Interval history: Patient seen and examined at bedside today. He states that he feels better. Lovenox q12h for 3 doses. Pt will be back to OR Tuesday for secondary procedure by Podiatry and he will need PICC line post op for ongoing IV abx. Exam Narrative: Exam Narrative: Physical exam GENERAL: Comfortable, no acute distress. HEAD AND NECK: Atraumatic, normocephalic CARDIOVASCULAR: RRR. Normal S1, S2. No murmurs. RESPIRATORY: Clear to auscultation B/L. Good air entry B/L. No wheezes or rhonchi. NEUROLOGY: Alert, awake, oriented X 3. Normal speech. MSK; Right ankle dressing clean, distal pulses intact PSYCH: Normal mood, normal affect. Const: Vital Signs, click to edit/add: Vital Signs - 24 hr 02/27/25 15:00 02/27/25 15:00 02/27/25 18:55 Temperature 98.1 F 98.8 F Pulse Rate 76 Pulse Rate [Pulse Oximeter] 79 79 Respiratory Rate 22 22 16 Blood Pressure 146/97 H Blood Pressure [Le ft Arm] 140/55 H Pulse Oximetry 100 91 Oxygen Delivery Me thod Room Air Room Air Oxygen Flow Rate 02/27/25 19:00 02/27/25 19:05 02/27/25 19:10 Temperature Pulse Rate 71 71 72 Pulse Rate [Pulse Oximeter] Respiratory Rate 16 16 16 Blood Pressure 162/82 H 155/84 H 157/84 H Blood Pressure [Le ft Arm] Pulse Oximetry 91 95 98 Oxygen Delivery Me thod Room Air Nasal Cannula Nasal Cannula Oxygen Flow Rate 2 2 02/27/25 19:15 02/27/25 19:20 02/27/25 19:25 Temperature 98.6 F Pulse Rate 73 63 70 Pulse Rate [Pulse Oximeter] Respiratory Rate 16 16 16 Blood Pressure 155/83 H 166/100 H 152/78 H Blood Pressure [Le ft Arm] Pulse Oximetry 95 94 98 Oxygen Delivery Me thod Nasal Cannula Nasal Cannula Nasal Cannula Oxygen Flow Rate 2 2 2 02/27/25 20:30 02/27/25 20:45 02/27/25 21:00 Temperature 98.1 F 98.1 F 98.1 F Pulse Rate Pulse Rate [Pulse Oximeter] 74 75 56 L Respiratory Rate 14 16 Blood Pressure Blood Pressure [Le ft Arm] 147/72 H 139/72 120/101 H Pulse Oximetry 97 97 Oxygen Delivery Me thod Room Air Room Air Oxygen Flow Rate 02/27/25 21:15 02/27/25 21:30 02/27/25 22:15 Temperature 98.2 F Pulse Rate Pulse Rate [Pulse Oximeter] 82 80 79 Respiratory Rate 14 14 Blood Pressure Blood Pressure [Le ft Arm] 137/65 134/75 142/79 H Pulse Oximetry 93 94 Oxygen Delivery Me thod Room Air Room Air Oxygen Flow Rate 02/27/25 23:00 02/27/25 23:00 02/28/25 00:00 Temperature Pulse Rate Pulse Rate [Pulse Oximeter] 74 79 86 Respiratory Rate 14 Blood Pressure Blood Pressure [Le ft Arm] 137/65 138/71 Pulse Oximetry Oxygen Delivery Me thod Oxygen Flow Rate 02/28/25 01:00 02/28/25 02:00 02/28/25 03:16 Temperature 98.5 F Pulse Rate Pulse Rate [Pulse Oximeter] 86 88 80 Respiratory Rate 16 Blood Pressure Blood Pressure [Le ft Arm] 141/77 H 130/81 143/67 H Pulse Oximetry 90 93 Oxygen Delivery Me thod Room Air Room Air Oxygen Flow Rate 02/28/25 07:00 02/28/25 07:00 Temperature 98.7 F Pulse Rate Pulse Rate [Pulse Oximeter] 90 90 Respiratory Rate 20 20 Blood Pressure Blood Pressure [Le ft Arm] 139/66 Pulse Oximetry 96 Oxygen Delivery Me thod Room Air Oxygen Flow Rate Labs Labs: Laboratory Results - last 24 hr 02/27/25 02/28/25 11:30 06:35 WBC 6.88 RBC 4.40 Hgb 11.8 L Hct 38.1 MCV 87 MCH 27 MCHC 31 L Plt Count 238 ESR 53 H APTT 59 H Sodium 135 Potassium 3.7 Chloride 99 Carbon Dioxide 26 Anion Gap 10 BUN 13 Creatinine 1.0 Estimated Creat Clear 94.29 Estimated GFR 93 Glucose 119 H Calcium 8.6
--- NOTE | 2025-02-28 16:29 | W.PM.PODPN ---
Podiatry-PN: Subj Subjective Time Seen by Provider: 16:15 Date Seen: 02/28/25 Interval history: Patient seen and examined at bedside today POD#1. He states that he feels better. He has no cardiac complaints. He feels that he is able to stay on top of the pain. Exam Narrative: Exam Narrative: General: No distress. Resting comfortably in bed. Vascular: Palpable dorsalis pedis pulse right neuro: Sensate to light touch throughout. Derm: Continued erythema and edema medial ankle with some improvement. There is no longer any fluctuance. No evidence of necrosis. Drain in place. Msk: Less pain with talonavicular joint motion. Drain output: 20 mL deep space wound culture: Gram-positive cocci assessment: septic TN joint right foot POD#1, osteomyelitis right foot Plan: Dressing changed bedside with some improvement in erythema and edema. recommend return to the OR tomorrow for repeat washout and removal of the drain. We will primarily close. Cultures not complete and recommend continue current IV antibiotics. Anticipate 6 weeks IV antibiotics. Reviewed plan was patient is understanding and questions answered. We will hold the Lovenox tonight and NPO after midnight. Const: Vital Signs, click to edit/add: Vital Signs - 24 hr 02/27/25 18:55 02/27/25 19:00 02/27/25 19:05 Temperature 98.8 F Pulse Rate 76 71 71 Pulse Rate [Pulse Oximeter] Respiratory Rate 16 16 16 Blood Pressure 146/97 H 162/82 H 155/84 H Blood Pressure [Le ft Arm] Pulse Oximetry 91 91 95 Oxygen Delivery Me thod Room Air Room Air Nasal Cannula Oxygen Flow Rate 2 02/27/25 19:10 02/27/25 19:15 02/27/25 19:20 Temperature Pulse Rate 72 73 63 Pulse Rate [Pulse Oximeter] Respiratory Rate 16 16 16 Blood Pressure 157/84 H 155/83 H 166/100 H Blood Pressure [Le ft Arm] Pulse Oximetry 98 95 94 Oxygen Delivery Me thod Nasal Cannula Nasal Cannula Nasal Cannula Oxygen Flow Rate 2 2 2 02/27/25 19:25 02/27/25 20:30 02/27/25 20:45 Temperature 98.6 F 98.1 F 98.1 F Pulse Rate 70 Pulse Rate [Pulse Oximeter] 74 75 Respiratory Rate 16 14 16 Blood Pressure 152/78 H Blood Pressure [Le ft Arm] 147/72 H 139/72 Pulse Oximetry 98 97 97 Oxygen Delivery Me thod Nasal Cannula Room Air Room Air Oxygen Flow Rate 2 02/27/25 21:00 02/27/25 21:15 02/27/25 21:30 Temperature 98.1 F 98.2 F Pulse Rate Pulse Rate [Pulse Oximeter] 56 L 82 80 Respiratory Rate 14 Blood Pressure Blood Pressure [Le ft Arm] 120/101 H 137/65 134/75 Pulse Oximetry 93 Oxygen Delivery Me thod Room Air Oxygen Flow Rate 02/27/25 22:15 02/27/25 23:00 02/27/25 23:00 Temperature Pulse Rate Pulse Rate [Pulse Oximeter] 79 74 79 Respiratory Rate 14 14 Blood Pressure Blood Pressure [Le ft Arm] 142/79 H 137/65 Pulse Oximetry 94 Oxygen Delivery Me thod Room Air Oxygen Flow Rate 02/28/25 00:00 02/28/25 01:00 02/28/25 02:00 Temperature 98.5 F Pulse Rate Pulse Rate [Pulse Oximeter] 86 86 88 Respiratory Rate Blood Pressure Blood Pressure [Le ft Arm] 138/71 141/77 H 130/81 Pulse Oximetry 90 Oxygen Delivery Me thod Room Air Oxygen Flow Rate 02/28/25 03:16 02/28/25 07:00 02/28/25 07:00 Temperature 98.7 F Pulse Rate Pulse Rate [Pulse Oximeter] 80 90 90 Respiratory Rate 16 20 20 Blood Pressure Blood Pressure [Le ft Arm] 143/67 H 139/66 Pulse Oximetry 93 96 Oxygen Delivery Me thod Room Air Room Air Oxygen Flow Rate 02/28/25 11:00 Temperature 98.2 F Pulse Rate Pulse Rate [Pulse Oximeter] 93 Respiratory Rate 18 Blood Pressure Blood Pressure [Le ft Arm] 140/70 H Pulse Oximetry 96 Oxygen Delivery Me thod Room Air Oxygen Flow Rate Podiatry-PN: Obj Labs Labs: Laboratory Results - last 24 hr 02/28/25 06:35 WBC 6.88 RBC 4.40 Hgb 11.8 L Hct 38.1 MCV 87 MCH 27 MCHC 31 L Plt Count 238 ESR 53 H Sodium 135 Potassium 3.7 Chloride 99 Carbon Dioxide 26 Anion Gap 10 BUN 13 Creatinine 1.0 Estimated Creat Clear 94.29 Estimated GFR 93 Glucose 119 H Calcium 8.6
--- NOTE | 2025-02-28 18:47 | PC.NURSE ---
Pt a/o x4, cooperative with cares,pain reported 5-8/10. prn pain meds given. GUALBERTO drain in place, minimal output during shift. GUALBERTO drain stripped Q4hr. Up adlib with THANIA mims to RLE.
[2025-02-28] MEDS: DOCUSATE SODIUM 100 MG CAPSULE PO (20:35)
[2025-03-01] VITALS (23 sets, daily range): BP systolic 135–186; BP diastolic 62–93; PULSE 66–98; RESP 14–18; TEMP 35.3–37.2; O2SAT 93–99
[2025-03-01] MEDS: VANCOMYCIN 1.75 GM/350 ML 1.75 GM/350 ML PIGGYBACK IVPB (01:46)
[2025-03-01] MEDS: PIPERACILLIN/TAZOBACTAM 3.375 GM in 0.9 % SODIUM CHLORIDE Mini-bag 100 ML IVPB (04:13)
[2025-03-01 06:49] LABS: Hematocrit* 37.2 % (37.0-53.0); Hemoglobin* 12.0 gm/dL (13.5-17.5); Mean Corpuscular HGB Conc 32 gm/dL (32-36); Mean Corpuscular Hemoglobin 28 pg (26-34); Mean Corpuscular Volume 86 fL (80-100); Red Blood Count* 4.34 m/uL (4.30-5.90); White Blood Count* 5.92 K/uL (4.50-11.00)
[2025-03-01 06:50] LABS: Slide Review Reflex No
[2025-03-01 07:03] LABS: Chloride* 103 mmol/L (96-114); Sodium* 136 mmol/L (135-149)
[2025-03-01 07:04] LABS: Potassium* 3.6 mmol/L (3.6-5.1)
[2025-03-01 07:19] LABS: Anion Gap 6 mEq/L (7-15); Blood Urea Nitrogen* 12 mg/dL (5-24); Calcium* 8.7 mg/dL (8.4-10.6); Carbon Dioxide* 27 mmol/L (20-32); Creatinine* 0.8 mg/dL (0.5-1.5); Est. Creatinine Clearance* 117.86; Estimated Glomerular Filt Rate 110 ml/min; Glucose* 114 mg/dL (60-115)
--- NOTE | 2025-03-01 07:53 | PC.NURSE ---
shift note: Pt AOx4. Pt pleasant & cooperative w/ cares. Pt up to BR IND w/ scooter. HS cares done w/ SBA w/ RN. Pt NPO @ midnight. Anesthesia confirmed via verbal phone communication to RN that PT OK to have PO pain meds this AM prior to SX--see EMAR. Pt R AC IV access removed by RN due to occlusion. Pt HOB [employer]. GUALBERTO drain in place w/ minimal bloody output. Dressing & jessie bandage C/D/I.
[2025-03-01] MEDS: BUPIVACAINE 0.25% 30 ML INJECTION (09:58)
--- NOTE | 2025-03-01 10:06 | P.IMPN_ITS ---
Assessment and Plan Assessment and plan (1) Acute osteomyelitis: Problem comment: -MRI Rt ankle: Confluent abnormal marrow signal and enhancement in the talar head, talar neck, and navicular bone which is most suspicious for osteomyelitis. -S/P IV vancomycin and Zosyn DC on 03/01 -synovial fluid aspiration during surgery Cx growing Staph aureus -Pt will likely need long-term IV antibiotics. -podiatry following 02/28: Lovenox q12h for 3 doses. Pt will be back to OR Tuesday for secondary proce dure by Podiatry and he will need PICC line post op for ongoing IV abx. 03/01: Patient underwent 2nd washout today with Podiatry team. Wound primarily closed and the drain was removed. He is doing well. -will resume Lovenox b.i.d. therapeutic does while he is in the hospital but will put him back on Eliquis on discharge to continue treatment of DVT. -I discussed the case with Dr. Meeks infectious disease and she recommends cefazolin 2 g IV q.8 hours for 6 weeks. Cefazolin started today. Status: Suspected (2) Cellulitis: Problem comment: -synovial fluid growing Staph aureus -02/26: We consulted Podiatry Dr. Osiris grajeda who recommended an MRI of his ankle, which will be done today. -Changed his antibiotic to cover MRSA to vancomycin IV. 02/27: MRI findings :the infection is emanating from the talonavicular joint and that is has formed an abscess to the medial foot. He is in need of surgical intervention to drain the abscess and washout the joint. We also discussed that the MRI indicates there may be infection within the talus and navicular bones. He will likely need long-term IV antibiotics. Chances are quite good that he will end up with significant arthritic changes within the talonavicular joint. He confirms that he does have a history of malignant hyperthermia. he has been on Eliquis and he will need approximately 24 hours off medication before surgery. We will switch him over to heparin drip for better control His anticoagulation. This will be stopped for prior to surgery. 02/28: Lovenox q12h for 3 doses. Pt will be back to OR Tuesday for secondary procedure by Podiatry and he will need PICC line post op for ongoing IV abx. 03/01: Patient underwent 2nd washout today with Podiatry team. Wound primarily closed and the drain was removed. He is doing well. -will resume Lovenox b.i.d. therapeutic does while he is in the hospital but will put him back on Eliquis on discharge to continue treatment of DVT. -I discussed the case with Dr. Meeks infectious disease and she recommends cefazolin 2 g IV q.8 hours for 6 weeks. Cefazolin started today. Status: Acute (3) Septic arthritis of right ankle: Problem comment: As above Status: Acute (4) DVT of leg (deep venous thrombosis): Problem comment: -Right lower leg, dx 02/15/2025. Previous DVT in left leg 2022 -continue apixaban 5 mg b.i.d. -outpatient follow-up for further workup (sounds as though he did not have any following his 1st DVT in 2022 - considered unprovoked) -02/26: -Pt switched to heparin drip (recent DVT) prior to surgery on February 27, will need to stop heparin 4 hours prior to surgery. Status: Acute (5) Hypokalemia: Problem comment: -2.6 in the ED -continue potassium effervescent as initiated in the ED (3.0 after 1 dose) -KCl 40 mEq po x1 -hold chlorthalidone -potassium chloride 60 mEq for 2 more doses and recheck in a.m. 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 Subjective Date Seen: 03/01/25 Interval history: Patient seen and examined at bedside today . Patient underwent 2nd washout today with Podiatry team. Wound primarily closed and the drain was removed. He is doing well. will resume Lovenox b.i.d. therapeutic does while he is in the hospital but will put him back on Eliquis on discharge to continue treatment of DVT. I discussed the case with Dr. Meeks infectious disease and she recommends cefazolin 2 g IV q.8 hours for 6 weeks. Cefazolin started today. Exam Narrative: Exam Narrative: Physical exam GENERAL: Comfortable, no acute distress. HEAD AND NECK: Atraumatic, normocephalic CARDIOVASCULAR: RRR. Normal S1, S2. No murmurs. RESPIRATORY: Clear to auscultation B/L. Good air entry B/L. No wheezes or rhonchi. MSK: Clean dressing of right ankle. Normal temperature. Distal pulses positive. NEUROLOGY: Alert, awake, oriented X 3. Normal speech. PSYCH: Normal mood, normal affect. Const: Vital Signs, click to edit/add: Vital Signs - 24 hr 02/28/25 11:00 02/28/25 15:00 02/28/25 15:00 Temperature 98.2 F 98.2 F Pulse Rate [Pulse Oximeter] 93 93 94 Respiratory Rate 18 18 18 Blood Pressure [Le ft Arm] 140/70 H Blood Pressure [Ri ght Arm] 129/63 Pulse Oximetry 96 93 Oxygen Delivery Me thod Room Air 02/28/25 20:32 02/28/25 22:44 02/28/25 23:00 Temperature 98.6 F 98.2 F Pulse Rate [Pulse Oximeter] 96 97 97 Respiratory Rate 18 18 18 Blood Pressure [Le ft Arm] 152/85 H Blood Pressure [Ri ght Arm] 162/88 H Pulse Oximetry 94 95 Oxygen Delivery Me thod Room Air Room Air 03/01/25 04:08 03/01/25 07:00 Temperature 97.9 F 98.3 F Pulse Rate [Pulse Oximeter] 68 93 Respiratory Rate 14 18 Blood Pressure [Le ft Arm] 139/77 Blood Pressure [Ri ght Arm] 165/92 H Pulse Oximetry 95 99 Oxygen Delivery Me thod Room Air Room Air Labs Labs: Laboratory Results - last 24 hr 03/01/25 06:05 WBC 5.92 RBC 4.34 Hgb 12.0 L Hct 37.2 MCV 86 MCH 28 MCHC 32 Plt Count 216 Sodium 136 Potassium 3.6 Chloride 103 Carbon Dioxide 27 Anion Gap 6 L BUN 12 Creatinine 0.8 Estimated Creat Clear 117.86 Estimated GFR 110 Glucose 114 Calcium 8.7
--- NOTE | 2025-03-01 10:52 | P.ANES_ITS ---
Anesthesia Charges Start Date/Time Anesthesia Start Date: 03/01/25 Anesthesia Start Time: 09:44 Stop Date/Time Anesthesia Stop Date: 03/01/25 Anesthesia Stop Time: 10:51 Coding CPT Codes CPT Codes: ANESTH LOWER LEG BONE SURG - 85596 ([id number]) P3 - PATIENT W/SEVERE SYS DISEASE, QZ - NITRO MAN SVC W/O DESKTOP SUPPORT SPECIALIST BY
--- NOTE | 2025-03-01 10:52 | W.ANESCHARGE ---
Anesthesia Charges Start Date/Time Anesthesia Start Date: 03/01/25 Anesthesia Start Time: 09:44 Stop Date/Time Anesthesia Stop Date: 03/01/25 Anesthesia Stop Time: 10:51 Coding CPT Codes CPT Codes: ANESTH LOWER LEG BONE SURG - 54621 ([id number]) P3 - PATIENT W/SEVERE SYS DISEASE, QZ - RETAIL STORE CLERK SVC W/O BLACK ASH BURNER OPERATOR BY
--- NOTE | 2025-03-01 10:57 | W.PM.PODPROC ---
Date of Procedure: 03/01/25 Surgeon: Stephane Gabriel DPM Pre-op Diagnosis: Septic talonavicular joint right Post-op Diagnosis: Septic talonavicular joint right Type of Procedure: I and D with washout talonavicular for right Indications: Patient is in need of 2nd washout of his septic talonavicular joint. I reviewed the procedure, recovery, expectations potential complications. All questions answered. Written consent obtained. Procedure Description: Patient brought the operating room and placed in supine position on the operating table. He was then placed under general anesthesia. 20 mL of 0.25% Marcaine plain injected around the surgical site. He was prepped and draped in sterile fashion. Standard time-out protocol followed. The sutures from the central portion of the incision for removed and a 3 cm length the incision opened. Significant amount of hematoma noted which was evacuated with suction the area was then irrigated and initial survey showed no areas of necrotic tissue and no areas of purulence. Talonavicular joint was without increased necrosis. Bone margins appear viable. Using a pulse food and beverage coordinator the talonavicular joint and abscess site were irrigated with 3000 mL normal sterile saline. No active bleeding noted. Incision was then closed with 2-0 nylon retention sutures. Sterile dressing was then applied. He tolerated anesthesia and procedure well was transferred from OR to PACU with vital signs stable. Anesthesia: GETA and local Specimens: none sent Disposition: PACU
--- NOTE | 2025-03-01 12:33 | SUR.OPER ---
PATIENT QUESTIONS ANSWERED SATISFACTORILY PREOPERATIVELY.? PATIENT BROUGHT TO OR #3 PER CART.? Patient positioned supine on OR #3 bed.? The perioperative?team supported arms bilaterally on arm boards.? Final approval of positioning by surgeon.?
--- NOTE | 2025-03-01 12:46 | PC.SOCIAL ---
Addendum entered by PIPO Gore 03/01/25 16:20: Discharge planning: Called and spoke with [facility] ([phone]) who confirmed receipt of all information sent earlier. Asha stated they are unable to arrange for home IV abx before 03-04-25, but likely can arrange it before the third dose on Tuesday. Asha shared that pt's insurance has authorized 80% coverage and she can share on Tuesday an estimate of the cost. RN to fax PICC Line Information when completed later today. film processing utility worker to follow up on Tuesday. Met with pt and partner whoa re aware and agree with plan. Original Note: Discharge planning: Per MD order for home IV abx for six weeks, met with pt who agrees with this plan. Pt requested home IV abx be arranged with [facility] if contracted with his insurance. Pt plans to stay with his partner, Precious Rollins at her home at discharge. This address for discharge is [address] [place] [id number]. film processing utility worker called [facility] [phone] who requested inforamation be faxed to intake at [phone]. film processing utility worker to follow up as needed.
[2025-03-01] MEDS: CEFAZOLIN 2 GM in 0.9 % SODIUM CHLORIDE Mini-bag 100 ML IVPB ×2 (13:36→21:16)
[2025-03-01] MEDS: ENOXAPARIN 120 MG/0.8 ML INJ SUBCUT (13:37)
[2025-03-01] MEDS: ENOXAPARIN 30 MG/0.3ML INJ SUBCUT (13:37)
[2025-03-01] MEDS: POTASSIUM CHLORIDE 10 MEQ CAPSULE ER PO (15:35)
[2025-03-01] MEDS: CHLORTHALIDONE 25 MG TABLET 50 MG PO (15:35)
[2025-03-01] MEDS: LOSARTAN POTASSIUM 50 MG TABLET 100 MG PO (15:36)
--- NOTE | 2025-03-01 17:09 | CRLHL7_ITS ---
For Patients: As a result of the Century Cures Act, medical imaging exams and procedure reports are released immediately into your electronic medical record. You may view this report before your referring provider. If you have questions, please contact your health care provider. Indication: PICC PLACEMENT Technique: AP view of the chest. Comparison: 02/15/2025. Findings: Suboptimal examination secondary to habitus. Right PICC with tip near the superior cavoatrial junction. Low lung volumes. Normal cardiomediastinal silhouette. Mild interstitial prominence. No focal consolidation, pleural effusions, or visualized pneumothorax. Impression: Right PICC with tip near the superior cavoatrial junction. Dictated by René Phelps MD @ 03/01/2025 5:42:13 PM (Electronically Signed)
[2025-03-01] MEDS: DOCUSATE SODIUM 100 MG CAPSULE PO (17:30)
--- NOTE | 2025-03-01 18:01 | PC.NURSE ---
Shift Summary: Patient pleasant and cooperative. Up independently in room. Vitals stable, BP elevated, MD restarted home medications. Tolerating regular diet. Pain managed with PRN medication and ice. Denies nausea. Abdomen distended, bowel sounds active and passing gas, given colace this evening see JUN. Dressing C/D/I. GUALBERTO removed today.
[2025-03-01] MEDS: SODIUM CHLORIDE 0.9 % (FLUSH) 10 ML SYRINGE 5 ML IVF ×2 (20:34→21:17)
[2025-03-02] VITALS (8 sets, daily range): BP systolic 144–164; BP diastolic 69–84; PULSE 75–91; RESP 15–18; TEMP 36.4–37; O2SAT 95–98
[2025-03-02] MEDS: ACETAMINOPHEN 500 MG TABLET 1000 MG PO ×3 (00:34→19:30)
[2025-03-02] MEDS: ENOXAPARIN 30 MG/0.3ML INJ SUBCUT (02:15)
[2025-03-02] MEDS: ENOXAPARIN 120 MG/0.8 ML INJ SUBCUT (02:15)
[2025-03-02] MEDS: CEFAZOLIN 2 GM in 0.9 % SODIUM CHLORIDE Mini-bag 100 ML IVPB ×3 (06:19→21:49)
[2025-03-02 06:28] LABS: Hematocrit* 38.2 % (37.0-53.0); Hemoglobin* 12.1 gm/dL (13.5-17.5); Mean Corpuscular HGB Conc 32 gm/dL (32-36); Mean Corpuscular Hemoglobin 27 pg (26-34); Mean Corpuscular Volume 86 fL (80-100); Red Blood Count* 4.46 m/uL (4.30-5.90); White Blood Count* 6.05 K/uL (4.50-11.00)
[2025-03-02 06:50] LABS: Chloride* 96 mmol/L (96-114)
[2025-03-02 06:51] LABS: Potassium* 3.6 mmol/L (3.6-5.1); Slide Review Reflex No; Sodium* 134 mmol/L (135-149)
[2025-03-02 06:53] LABS: Blood Urea Nitrogen* 10 mg/dL (5-24); Creatinine* 0.8 mg/dL (0.5-1.5); Est. Creatinine Clearance* 117.86; Estimated Glomerular Filt Rate 110 ml/min
[2025-03-02 06:54] LABS: Anion Gap 8 mEq/L (7-15); Calcium* 8.8 mg/dL (8.4-10.6); Carbon Dioxide* 30 mmol/L (20-32); Glucose* 103 mg/dL (60-115)
--- NOTE | 2025-03-02 07:30 | PC.NURSE ---
Pt alert, oriented and vitally stable. Pt?stated?pain rating from 6-12/02, prn medication?provided.?Pt up independently?utilizing?scooter.?NWB on?right?foot.?Dressing C/D/I. IV removed from R wrist, tip intact.?CMS?intact. Pt in bed, appears to be resting, call light within reach.
[2025-03-02] MEDS: POTASSIUM CHLORIDE 10 MEQ CAPSULE ER PO (08:32)
[2025-03-02] MEDS: CHLORTHALIDONE 25 MG TABLET 50 MG PO (08:32)
[2025-03-02] MEDS: LOSARTAN POTASSIUM 50 MG TABLET 100 MG PO (08:32)
--- NOTE | 2025-03-02 08:46 | P.PODPN_ITS ---
Podiatry-PN: Subj Subjective Date Seen: 03/02/25 Interval history: Patient seen and examined at bedside today . POD#2 from 2nd washout. pain controlled with current pain medications. denies F/C/N/V/CP/SOB. Exam Narrative: Exam Narrative: General: no distress. Vascular: palpable pedal pulses right Neuro: sensate to light touch msk: normal ankle ROM. no gross deformity. Derm: Erythema remains but is vastly improved. There is no active drainage or bleeding. There is no areas of new necrosis. Edema is significantly improved. There are no areas of fluctuance. Culture: Gram Stain* Final ML Result PMN SEEN GRAM POS COCCI BACTERIA SEEN Aerobic Culture* Final ML Organism 1 Staphylococcus aureus Quantity of Growth Moderate amount #02/28/25 TY S aureus LEV RX --------- --- Ciprofloxacin <=0.5 S Clindamycin 0.25 R Daptomycin 0.25 S Doxycycline <=0.5 S Erythromycin >=8 R Gentamicin <=0.5 S Levofloxacin <=0.12 S Linezolid 2 S * Moxifloxacin <=0.25 S * Oxacillin Lev <=0.25 S Rifampin <=0.5 S Tetracycline <=1 S Tigecycline <=0.12 S Trimethoprim/Sulfamethoxazole <=10 S Vancomycin 1 S Anaerobic Culture* Final ML NO ANAEROBES ISOLATED AT 48 HRS. A: Septic arthritis TNJ right foot s./p I and D with TNJ washout POD#1, osteomyelitis Talus and navicular bones P: Patient is doing well. Pain is controlled current medications. Plan is for 6 weeks IV antibiotics per ID recommendations. Dressing change today. Recommend dressing change with Adaptic, 4x4s, Kerlix roll and Jesse wrap on Tuesday before discharge. Planned follow-up with myself at the [facility] in [place] on Tuesday. He is weight-bearing as tolerated. Const: Vital Signs, click to edit/add: Vital Signs - 24 hr 03/01/25 10:50 03/01/25 10:55 03/01/25 11:00 Temperature 97.5 F L Pulse Rate 73 66 66 Pulse Rate [Pulse Oximeter] Respiratory Rate 16 16 16 Blood Pressure 158/72 H 141/68 H 139/75 Blood Pressure [Le ft Arm] Blood Pressure [Ri ght Arm] Pulse Oximetry 99 99 98 Oxygen Delivery Me thod Nasal Cannula Nasal Cannula Nasal Cannula Oxygen Flow Rate 3 3 3 03/01/25 11:05 03/01/25 11:10 03/01/25 11:15 Temperature 98.3 F 98.7 F Pulse Rate 71 77 68 Pulse Rate [Pulse Oximeter] Respiratory Rate 16 16 16 Blood Pressure 140/76 H 135/74 Blood Pressure [Le ft Arm] Blood Pressure [Ri ght Arm] Pulse Oximetry 97 97 96 Oxygen Delivery Me thod Nasal Cannula Nasal Cannula Room Air Oxygen Flow Rate 3 3 03/01/25 11:20 03/01/25 11:28 03/01/25 11:45 Temperature 96.5 F L 96.5 F L Pulse Rate 68 Pulse Rate [Pulse Oximeter] 76 67 Respiratory Rate 16 16 16 Blood Pressure 144/72 H Blood Pressure [Le ft Arm] Blood Pressure [Ri ght Arm] 175/91 H 164/88 H Pulse Oximetry 96 97 95 Oxygen Delivery Me thod Room Air Room Air Room Air Oxygen Flow Rate 03/01/25 12:00 03/01/25 12:15 03/01/25 12:30 Temperature 95.6 F L 95.7 F L 96.7 F L Pulse Rate Pulse Rate [Pulse Oximeter] 67 73 86 Respiratory Rate 16 16 16 Blood Pressure Blood Pressure [Le ft Arm] Blood Pressure [Ri ght Arm] 145/64 H 185/79 H 166/71 H Pulse Oximetry 96 93 96 Oxygen Delivery Me thod Room Air Room Air Room Air Oxygen Flow Rate 03/01/25 13:00 03/01/25 13:30 03/01/25 14:30 Temperature 96.7 F L 97.4 F L 96.7 F L Pulse Rate Pulse Rate [Pulse Oximeter] 84 88 89 Respiratory Rate 18 18 18 Blood Pressure Blood Pressure [Le ft Arm] Blood Pressure [Ri ght Arm] 154/62 H 171/91 H 186/93 H Pulse Oximetry 95 97 96 Oxygen Delivery Me thod Room Air Room Air Room Air Oxygen Flow Rate 03/01/25 15:30 03/01/25 16:42 03/01/25 17:30 Temperature 97.6 F 97.8 F 99 F Pulse Rate Pulse Rate [Pulse Oximeter] 91 98 92 Respiratory Rate 18 18 16 Blood Pressure Blood Pressure [Le ft Arm] Blood Pressure [Ri ght Arm] 176/73 H 176/84 H 182/86 H Pulse Oximetry 98 96 98 Oxygen Delivery Me thod Room Air Room Air Room Air Oxygen Flow Rate 03/01/25 20:18 03/01/25 22:15 03/01/25 23:00 Temperature 97.7 F 97.9 F Pulse Rate Pulse Rate [Pulse Oximeter] 96 90 90 Respiratory Rate 18 18 18 Blood Pressure Blood Pressure [Le ft Arm] Blood Pressure [Ri ght Arm] 160/86 H 152/81 H Pulse Oximetry 94 95 Oxygen Delivery Me thod Room Air Oxygen Flow Rate 03/02/25 02:19 03/02/25 08:29 Temperature 98.3 F 97.5 F L Pulse Rate Pulse Rate [Pulse Oximeter] 85 91 Respiratory Rate 16 18 Blood Pressure Blood Pressure [Le ft Arm] 151/79 H Blood Pressure [Ri ght Arm] 144/69 H Pulse Oximetry 95 98 Oxygen Delivery Me thod Room Air Oxygen Flow Rate Podiatry-PN: Obj Labs Labs: Laboratory Results - last 24 hr 03/02/25 05:45 WBC 6.05 RBC 4.46 Hgb 12.1 L Hct 38.2 MCV 86 MCH 27 MCHC 32 Plt Count 230 Sodium 134 L Potassium 3.6 Chloride 96 Carbon Dioxide 30 Anion Gap 8 BUN 10 Creatinine 0.8 Estimated Creat Clear 117.86 Estimated GFR 110 Glucose 103 Calcium 8.8
[2025-03-02] MEDS: APIXABAN 5 MG TABLET 10 MG PO ×2 (09:28→21:48)
--- NOTE | 2025-03-02 13:13 | P.IMPN_ITS ---
Assessment and Plan Assessment and plan (1) Acute osteomyelitis: Problem comment: -MRI Rt ankle: Confluent abnormal marrow signal and enhancement in the talar head, talar neck, and navicular bone which is most suspicious for osteomyelitis. -S/P IV vancomycin and Zosyn DC on 03/01 -synovial fluid aspiration during surgery Cx growing Staph aureus -Pt will likely need long-term IV antibiotics. -podiatry following 02/28: Lovenox q12h for 3 doses. Pt will be back to OR Tuesday for secondary proce dure by Podiatry and he will need PICC line post op for ongoing IV abx. 03/01: Patient underwent 2nd washout today with Podiatry team. Wound primarily closed and the drain was removed. He is doing well. -will resume Lovenox b.i.d. therapeutic does while he is in the hospital but will put him back on Eliquis on discharge to continue treatment of DVT. -I discussed the case with Dr. Meeks infectious disease and she recommends cefazolin 2 g IV q.8 hours for 6 weeks. Cefazolin started today. Status: Suspected (2) Septic arthritis of right ankle: Problem comment: Surgical washout with Dr. Gabriel. MSSA, on cefazolin for 6 weeks Status: Acute (3) DVT of leg (deep venous thrombosis): Problem comment: -Right lower leg, dx 02/15/2025. Previous DVT in left leg 2022 -continue apixaban 5 mg b.i.d. -outpatient follow-up for further workup (sounds as though he did not have any following his 1st DVT in 2022 - considered unprovoked) Recommend 6 month treatment with apixaban and and follow-up with Hematology prior to discontinuing apixaban. Patient is probably high risk for recurrent VTE. Status: Acute (4) Hypokalemia: Problem comment: -2.6 in the ED Potassium replaced and corrected. Resume normal blood pressure medications of losartan and chlorthalidone and add in potassium supplement. Status: Acute (5) Obesity: Status: Acute (6) Hypertension: Problem comment: Elevated blood pressures in the hospital. Blood pressure medications resumed. Status: Acute (7) Discharge planning issues: Problem comment: Pending insurance approval of outpatient IV antibiotic Status: Acute Plan 49-year-old male with right ankle osteomyelitis and septic talar navicular joint now status post surgical washout and I&D. On appropriate antimicrobial therapy for MSSA with cefazolin IV for 6 weeks. Discharge to home for IV antibiotics when medical insurance approves outpatient antibiotic service. Total Time Spent Total Time Spent: Total time spent today is 40 minutes in coordination of care and discussing with patient and other providers ongoing management of osteomyelitis and septic arthritis and outpatient antibiotics Subjective Date Seen: 03/02/25 Interval history: Tariq Herbert is a 49 year old male past medical history significant for hypertension, obesity, recurrent DVT is admitted to the medical floor from the ED for further management right lower extremity cellulitis in setting of acute DVT. Patient is seen with significant other at bedside. Reports onset of right medial malleolus pain on 01/31/2025. Never any calf pain. Reports that within 24 hours it became significantly worse and quite swollen. Denies any sort of trauma or injury. Denies any sort of bug bite or wound. No recreational or work related injury. Has been seen in multiple outpatient settings for evaluation since onset and treated with steroids, indomethacin with normal uric acid levels, and then on 02/15/25 had a Doppler ultrasound showing an occlusive DVT in the right peroneal veins, upper and mid posterior tibial veins with nonocclusive DVT in the distal popliteal vein and distal posterior tibial veins. He was started on apixaban and is currently on 5 mg b.i.d.. No course of antibiotics during these visits. Reports pain is 4/10 at rest and increased is 7/10 with weight-bearing. Currently using a kneeling scooter. Denies headaches or dizziness. Denies chest pain or shortness of breath over the course of time. No dyspnea on exertion. No decrease in activity. No fever in ED. No nausea vomiting or change in stools. DVT LLE 2022. No previous history chronic venous insufficiency or lymphedema. DVT in 2022 appears to be unprovoked. Ankle MRI shows small tail or navicular joint effusion with prominent synovitis communicating with a peripherally enhancing fluid collection in the subcutaneous fat of the medial ankle measuring about 4 cm. Findings suspicious for septic arthritis and abscess. Confluent abnormal marrow signal and enhancement in the talar head talar neck and navicular bone suspicious for osteomyelitis. Diffuse soft tissue edema consistent with cellulitis. Low-grade partial tear of the proximal central cord of the plantar fascia. 02/27/2025 patient taken to the OR by Dr. Gabriel for washout of the septic talar navicular joint and abscess of his right foot. Repeat procedure on March 01 reassuring findings of no new areas of purulence. 03/02/2025. Patient reports generally doing well. Cultures have grown MSSA. He is on cefazolin 2 g IV q.8 hours for a 6 week course of treatment, to April 12. Exam Narrative: Exam Narrative: He is alert and appears in no distress. Ankle is examined with Dr. Gabriel. Moderate erythema over the medial ankle where he has an incision which is sutured. Some superficial skin breakdown but improved compared to previous according to Dr. Gabriel. Intact pedal pulses. Good capillary refill. Foot is warm to touch. Const: Vital Signs, click to edit/add: Vital Signs - 24 hr 03/01/25 13:30 03/01/25 14:30 03/01/25 15:30 Temperature 97.4 F L 96.7 F L 97.6 F Pulse Rate [Pulse Oximeter] 88 89 91 Respiratory Rate 18 18 18 Blood Pressure [Le ft Arm] Blood Pressure [Ri ght Arm] 171/91 H 186/93 H 176/73 H Pulse Oximetry 97 96 98 Oxygen Delivery Me thod Room Air Room Air Room Air 03/01/25 16:42 03/01/25 17:30 03/01/25 20:18 Temperature 97.8 F 99 F 97.7 F Pulse Rate [Pulse Oximeter] 98 92 96 Respiratory Rate 18 16 18 Blood Pressure [Le ft Arm] Blood Pressure [Ri ght Arm] 176/84 H 182/86 H 160/86 H Pulse Oximetry 96 98 94 Oxygen Delivery Me thod Room Air Room Air Room Air 03/01/25 22:15 03/01/25 23:00 03/02/25 02:19 Temperature 97.9 F 98.3 F Pulse Rate [Pulse Oximeter] 90 90 85 Respiratory Rate 18 18 16 Blood Pressure [Le ft Arm] Blood Pressure [Ri ght Arm] 152/81 H 144/69 H Pulse Oximetry 95 95 Oxygen Delivery Me thod 03/02/25 07:00 03/02/25 08:29 03/02/25 10:57 Temperature 97.5 F L 98.0 F Pulse Rate [Pulse Oximeter] 75 91 75 Respiratory Rate 16 18 16 Blood Pressure [Le ft Arm] 151/79 H 164/84 H Blood Pressure [Ri ght Arm] Pulse Oximetry 98 98 Oxygen Delivery Me thod Room Air Room Air Labs Labs: Laboratory Results - last 24 hr 03/02/25 05:45 WBC 6.05 RBC 4.46 Hgb 12.1 L Hct 38.2 MCV 86 MCH 27 MCHC 32 Plt Count 230 Sodium 134 L Potassium 3.6 Chloride 96 Carbon Dioxide 30 Anion Gap 8 BUN 10 Creatinine 0.8 Estimated Creat Clear 117.86 Estimated GFR 110 Glucose 103 Calcium 8.8
[2025-03-02] MEDS: SODIUM CHLORIDE 0.9 % (FLUSH) 10 ML SYRINGE 5 ML IVF (13:48)
--- NOTE | 2025-03-02 16:46 | PC.NURSE ---
End of shift-- Pleasant and cooperative, alert and oriented patient. VSS, though occasionally hypertensive, and pt is afebrile. SPO2 maintained >90% on RA. Pain appears well managed with Oxycodone, Tylenol and Vistaril. Dressing to RLE was changed by MD at bedside today and is C/D/I. Cap refill <3 sec. Expiratory wheezing noted in posterior bases of lungs, otherwise CTA. He denied nausea and ate 100% of a regular breakfast and lunch. He is up independently in his room with scooter and tolerated it well.
--- NOTE | 2025-03-02 23:30 | PC.NURSE ---
Patient alert and oriented x4. Right leg CMS intact. Pain managed by PRN pain meds. Other vitals stable. Patient ambulates independently with scooter. Able to communicate needs.
[2025-03-03 02:24] VITALS: BP 145/77; PULSE 74; RESP 18; TEMP 36.4; O2SAT 95
[2025-03-03] MEDS: CEFAZOLIN 2 GM in 0.9 % SODIUM CHLORIDE Mini-bag 100 ML IVPB ×3 (06:07→21:07)
[2025-03-03 08:17] VITALS: BP 151/78; PULSE 81; RESP 20; TEMP 36.4; O2SAT 99
[2025-03-03] MEDS: CHLORTHALIDONE 25 MG TABLET 50 MG PO (08:21)
[2025-03-03] MEDS: LOSARTAN POTASSIUM 50 MG TABLET 100 MG PO (08:21)
[2025-03-03] MEDS: POTASSIUM CHLORIDE 10 MEQ CAPSULE ER PO (08:22)
[2025-03-03] MEDS: APIXABAN 5 MG TABLET 10 MG PO ×2 (08:22→21:06)
[2025-03-03] MEDS: SODIUM CHLORIDE 0.9 % (FLUSH) 10 ML SYRINGE 5 ML IVF (08:22)
[2025-03-03 11:00] VITALS: BP 150/82; PULSE 79; RESP 16; TEMP 37.1; O2SAT 98
[2025-03-03] MEDS: ACETAMINOPHEN 500 MG TABLET 1000 MG PO ×2 (11:15→17:11)
--- NOTE | 2025-03-03 11:57 | P.IMPN_ITS ---
Assessment and Plan Assessment and plan (1) Acute osteomyelitis: Problem comment: -MRI Rt ankle: Confluent abnormal marrow signal and enhancement in the talar head, talar neck, and navicular bone which is most suspicious for osteomyelitis. -S/P IV vancomycin and Zosyn DC on 03/01 -synovial fluid aspiration during surgery Cx growing Staph aureus -Pt will likely need long-term IV antibiotics. -podiatry following 02/28: Lovenox q12h for 3 doses. Pt will be back to OR Tuesday for secondary proce dure by Podiatry and he will need PICC line post op for ongoing IV abx. 03/01: Patient underwent 2nd washout today with Podiatry team. Wound primarily closed and the drain was removed. He is doing well. -will resume Lovenox b.i.d. therapeutic does while he is in the hospital but will put him back on Eliquis on discharge to continue treatment of DVT. -I discussed the case with Dr. Meeks infectious disease and she recommends cefazolin 2 g IV q.8 hours for 6 weeks. Cefazolin started today. Status: Suspected (2) Septic arthritis of right ankle: Problem comment: Surgical washout with Dr. Gabriel. MSSA, on cefazolin for 6 weeks, to April 12 Status: Acute (3) DVT of leg (deep venous thrombosis): Problem comment: -Right lower leg, dx 02/15/2025. Previous DVT in left leg 2022 -continue apixaban 5 mg b.i.d. -outpatient follow-up for further workup (sounds as though he did not have any following his 1st DVT in 2022 - considered unprovoked) Recommend 6 month treatment with apixaban and and follow-up with Hematology prior to discontinuing apixaban. Patient is probably high risk for recurrent VTE. Status: Acute (4) Hypokalemia: Problem comment: -2.6 in the ED Potassium replaced and corrected. Resume normal blood pressure medications of losartan and chlorthalidone and add in potassium supplement. Status: Acute (5) Obesity: Status: Acute (6) Hypertension: Problem comment: Elevated blood pressures in the hospital. Blood pressure medications resumed. Status: Acute (7) Discharge planning issues: Problem comment: Pending insurance approval of outpatient IV antibiotic Status: Acute Plan Continue in hospital for IV antibiotics pending insurance approval for outpatient antibiotics Total Time Spent Total Time Spent: Total time spent today is 20 minutes in coordination of care and discussing with patient and other providers ongoing plan of care Subjective Date Seen: 03/03/25 Interval history: Tariq Herbert is a 49 year old male past medical history significant for hypertension, obesity, recurrent DVT is admitted to the medical floor from the ED for further management right lower extremity cellulitis in setting of acute DVT. Patient is seen with significant other at bedside. Reports onset of right medial malleolus pain on 01/31/2025. Never any calf pain. Reports that within 24 hours it became significantly worse and quite swollen. Denies any sort of trauma or injury. Denies any sort of bug bite or wound. No recreational or work related injury. Has been seen in multiple outpatient settings for evaluation since onset and treated with steroids, indomethacin with normal uric acid levels, and then on 02/15/25 had a Doppler ultrasound showing an occlusive DVT in the right peroneal veins, upper and mid posterior tibial veins with nonocclusive DVT in the distal popliteal vein and distal posterior tibial veins. He was started on apixaban and is currently on 5 mg b.i.d.. No course of antibiotics during these visits. Reports pain is 4/10 at rest and increased is 7/10 with weight-bearing. Currently using a kneeling scooter. Denies headaches or dizziness. Denies chest pain or shortness of breath over the course of time. No dyspnea on exertion. No decrease in activity. No fever in ED. No nausea vomiting or change in stools. DVT LLE 2022. No previous history chronic venous insufficiency or lymphedema. DVT in 2022 appears to be unprovoked. Ankle MRI shows small tail or navicular joint effusion with prominent synovitis communicating with a peripherally enhancing fluid collection in the subcutaneous fat of the medial ankle measuring about 4 cm. Findings suspicious for septic arthritis and abscess. Confluent abnormal marrow signal and enhancement in the talar head talar neck and navicular bone suspicious for osteomyelitis. Diffuse soft tissue edema consistent with cellulitis. Low-grade partial tear of the proximal central cord of the plantar fascia. 02/27/2025 patient taken to the OR by Dr. Gabriel for washout of the septic talar navicular joint and abscess of his right foot. Repeat procedure on March 01 reassuring findings of no new areas of purulence. 03/02/2025. Patient reports generally doing well. Cultures have grown MSSA. He is on cefazolin 2 g IV q.8 hours for a 6 week course of treatment, to April 12. 03/03/2025: Patient continues to report feeling well. He has no health concerns. No significant ankle discomfort at rest. Reviewed with Dr. Gabriel: Weight-bearing as tolerated. Exam Narrative: Exam Narrative: He is alert and appears in no distress. Breathing is unlabored. Lower extremities with trace edema. He has good capillary refill. Feet are warm to touch. Good pedal pulses. Dressing is not removed today Const: Vital Signs, click to edit/add: Vital Signs - 24 hr 03/02/25 16:15 03/02/25 16:33 03/02/25 19:00 Temperature 98.6 F 98.5 F Pulse Rate [Pulse Oximeter] 77 82 Respiratory Rate 15 18 15 Blood Pressure [Le ft Arm] 153/82 H 150/76 H Pulse Oximetry 98 98 Oxygen Delivery Me thod Room Air Room Air 03/02/25 23:16 03/03/25 02:24 03/03/25 08:17 Temperature 97.9 F 97.5 F L 97.6 F Pulse Rate [Pulse Oximeter] 80 74 81 Respiratory Rate 17 18 20 Blood Pressure [Le ft Arm] 153/83 H 145/77 H 151/78 H Pulse Oximetry 96 95 99 Oxygen Delivery Me thod Room Air Room Air Room Air 03/03/25 11:00 Temperature 98.8 F Pulse Rate [Pulse Oximeter] 79 Respiratory Rate 16 Blood Pressure [Le ft Arm] 150/82 H Pulse Oximetry 98 Oxygen Delivery Me thod Room Air Documenting provider has reviewed patient's vital signs: yes
[2025-03-03 15:00] VITALS: BP 173/84; PULSE 89; RESP 18; TEMP 36.6; O2SAT 99
--- NOTE | 2025-03-03 18:02 | PC.NURSE ---
Shift Summary: patient pleasant and cooperative. Up independently. Pain well managed today. Tolerating regular diet. PICC flushed and patent, C/D/I. Right leg elevated with 2 pillows and dressing C/D/I.
[2025-03-03 20:57] VITALS: BP 142/84; PULSE 77; RESP 18; TEMP 36.6; O2SAT 98
[2025-03-04 01:03] VITALS: BP 143/63; PULSE 71; TEMP 36.7; O2SAT 97
[2025-03-04 04:56] VITALS: BP 137/66; PULSE 74; TEMP 36.9; O2SAT 96
[2025-03-04] MEDS: CEFAZOLIN 2 GM in 0.9 % SODIUM CHLORIDE Mini-bag 100 ML IVPB ×2 (05:08→13:19)
[2025-03-04] MEDS: ACETAMINOPHEN 500 MG TABLET 1000 MG PO (05:54)
[2025-03-04 06:38] LABS: Hematocrit* 40.8 % (37.0-53.0); Hemoglobin* 13.3 gm/dL (13.5-17.5); Immature Granulocytes Abs Auto 0.03 K/uL (0.00-0.30); Immature Granulocytes Pct Auto 0.4 %; Mean Corpuscular HGB Conc 33 gm/dL (32-36); Mean Corpuscular Hemoglobin 27 pg (26-34); Mean Corpuscular Volume 84 fL (80-100); RDW Coefficient of Variation % 12.0 % (11.5-15.5); Red Blood Count* 4.87 m/uL (4.30-5.90); White Blood Count* 6.75 K/uL (4.50-11.00)
[2025-03-04 06:48] LABS: Lymphocytes Absolute Auto 1.30 K/uL (0.90-2.90); Slide Review Reflex No
[2025-03-04 06:55] LABS: Chloride* 98 mmol/L (96-114); Sodium* 136 mmol/L (135-149)
[2025-03-04 06:56] LABS: Potassium* 3.4 mmol/L (3.6-5.1)
[2025-03-04 06:59] LABS: Anion Gap 11 mEq/L (7-15); Blood Urea Nitrogen* 10 mg/dL (5-24); Calcium* 9.3 mg/dL (8.4-10.6); Carbon Dioxide* 27 mmol/L (20-32); Creatinine* 0.7 mg/dL (0.5-1.5); Estimated Glomerular Filt Rate 114 ml/min; Glucose* 104 mg/dL (60-115)
[2025-03-04 07:00] VITALS: BP 145/85; PULSE 81; RESP 18; TEMP 36.7; O2SAT 97
[2025-03-04] MEDS: APIXABAN 5 MG TABLET 10 MG PO (08:14)
[2025-03-04] MEDS: LOSARTAN POTASSIUM 50 MG TABLET 100 MG PO (08:14)
[2025-03-04] MEDS: POTASSIUM CHLORIDE 10 MEQ CAPSULE ER PO (08:14)
[2025-03-04] MEDS: SODIUM CHLORIDE 0.9 % (FLUSH) 10 ML SYRINGE 5 ML IVF (08:15)
[2025-03-04] MEDS: CHLORTHALIDONE 25 MG TABLET 50 MG PO (08:15)
[2025-03-04 08:30] VITALS: PULSE 81; RESP 18
[2025-03-04 11:00] VITALS: BP 148/64; PULSE 75; O2SAT 96
--- NOTE | 2025-03-04 13:36 | PC.SOCIAL ---
Discharge planning: Called Asha at [facility] home infusion, who confirmed she is working on plan to start IV abx at home for evening dose today. Asha requested clarification on MD orders and plans for labs, and IV dressing changes. Per MD, no labs are needed. Met with pt regarding option for home health care or out/pt infusion center for IV dressing changes. Initially, pt was requesting home health for IV dressing changes, but later requested this be arranged at the [facility] for around 1:00 on Wednesdays. RN arranged [facility]. Called back to [facility] and provided them with requested information. mechanical repair worker to follow up as needed.
--- NOTE | 2025-03-04 15:26 | P.DS_ITS ---
DS: Providers Provider Date Seen: 03/04/25 Date of admission: 02/25/25 22:20 Primary care physician: Rajesh Iverson MD Admitting Clinician: Majo Dallas MD Attending Physician on discharge: Chilo Bernabe MD Date of Discharge: 03/04/25 DS: Diagnosis Discharge Diagnosis (1) Acute osteomyelitis: Status: Suspected Problem details: -MRI Rt ankle: Confluent abnormal marrow signal and enhancement in the talar head, talar neck, and navicular bone which is most suspicious for osteomyelitis. -S/P IV vancomycin and Zosyn DC on 03/01 -synovial fluid aspiration during surgery Cx growing Staph aureus -Pt will likely need long-term IV antibiotics. -podiatry following 02/28: Lovenox q12h for 3 doses. Pt will be back to OR Tuesday for secondary procedure by Podiatry and he will need PICC line post op for ongoing IV abx. 03/01: Patient underwent 2nd washout today with Podiatry team. Wound primarily closed and the drain was removed. He is doing well. -will resume Lovenox b.i.d. therapeutic does while he is in the hospital but will put him back on Eliquis on discharge to continue treatment of DVT. -I discussed the case with Dr. Meeks infectious disease and she recommends cefazolin 2 g IV q.8 hours for 6 weeks through TuesdayApril 12 (2) Septic arthritis of right ankle: Status: Acute Problem details: Surgical washout with Dr. Gabriel. MSSA, on cefazolin for 6 weeks, to April 12 (3) Hypokalemia: Status: Acute Problem details: -2.6 in the ED Potassium replaced and corrected. Resume normal blood pressure medications of losartan and chlorthalidone and add in potassium supplement. Continue outpatient potassium with outpatient follow-up (4) DVT of leg (deep venous thrombosis): Status: Acute Problem details: -Right lower leg, dx 02/15/2025. Previous DVT in left leg 2022 -continue apixaban 5 mg b.i.d. -outpatient follow-up for further workup (sounds as though he did not have any following his 1st DVT in 2022 - considered unprovoked) Recommend 6 month treatment with apixaban and and follow-up with Hematology prior to discontinuing apixaban. Patient is probably high risk for recurrent VTE. (5) Hypertension: Status: Acute Problem details: Elevated blood pressures in the hospital. Blood pressure medications resumed. DS: Summary Hospital Course Hospital Course: Tariq Herbert is a 49 year old male past medical history significant for hypertension, obesity, recurrent DVT is admitted to the medical floor from the ED for further management right lower extremity cellulitis in setting of acute DVT. Patient is seen with significant other at bedside. Reports onset of right medial malleolus pain on 01/31/2025. Never any calf pain. Reports that within 24 hours it became significantly worse and quite swollen. Denies any sort of trauma or injury. Denies any sort of bug bite or wound. No recreational or work related injury. Has been seen in multiple outpatient settings for evaluation since onset and treated with steroids, indomethacin with normal uric acid levels, and then on 02/15/25 had a Doppler ultrasound showing an occlusive DVT in the right peroneal veins, upper and mid posterior tibial veins with nonocclusive DVT in the distal popliteal vein and distal posterior tibial veins. He was started on apixaban and is currently on 5 mg b.i.d.. No course of antibiotics during these visits. Reports pain is 4/10 at rest and increased is 7/10 with weight-bearing. Currently using a kneeling scooter. Denies headaches or dizziness. Denies chest pain or shortness of breath over the course of time. No dyspnea on exertion. No decrease in activity. No fever in ED. No nausea vomiting or change in stools. DVT LLE 2022. No previous history chronic venous insufficiency or lymphedema. DVT in 2022 appears to be unprovoked. Ankle MRI shows small tail or navicular joint effusion with prominent synovitis communicating with a peripherally enhancing fluid collection in the subcutaneous fat of the medial ankle measuring about 4 cm. Findings suspicious for septic arthritis and abscess. Confluent abnormal marrow signal and enhancement in the talar head talar neck and navicular bone suspicious for osteomyelitis. Diffuse soft tissue edema consistent with cellulitis. Low-grade partial tear of the proximal central cord of the plantar fascia. 02/27/2025 patient taken to the OR by Dr. Gabriel for washout of the septic talar navicular joint and abscess of his right foot. Repeat procedure on March 01 reassuring findings of no new areas of purulence. 03/04/2025: Patient continues to do well. He is having a small area of opening of the wound on his ankle with about a 1 cm diameter ulcer adjacent to the wound with minimal bloody drainage. Status at Discharge Functional status at discharge: uses cane/walker (Weight-bearing as tolerated. Currently using kneeling walker) Overall status at discharge: patient is progressing back to baseline Time Spent with Patient Time attestation: Total time spent providing and/or coordinating discharge services: 50 minutes in coordination of care Time spent: Greater than 30 minutes Exam Narrative: Exam Narrative: Right leg is examined after removing dressings. Small amount of bloody drainage on the dressing. Small amount of erythema around the medial ankle where his incision is present. There is a 1 cm ulceration with bloody drainage adjacent to the middle of this incision. Wound otherwise appear similar to 2 days ago Const: Vital Signs, click to edit/add: Vital Signs - 24 hr 03/03/25 20:57 03/04/25 01:03 03/04/25 04:56 Temperature 97.9 F 98.0 F 98.5 F Pulse Rate [Pulse Oximeter] 77 71 74 Respiratory Rate 18 Blood Pressure [Le ft Arm] 142/84 H 143/63 H 137/66 Pulse Oximetry 98 97 96 Oxygen Delivery Me thod Room Air Room Air Room Air 03/04/25 07:00 03/04/25 08:30 03/04/25 11:00 Temperature 98.0 F Pulse Rate [Pulse Oximeter] 81 81 75 Respiratory Rate 18 18 Blood Pressure [Le ft Arm] 145/85 H 148/64 H Pulse Oximetry 97 96 Oxygen Delivery Me thod Room Air Room Air Documenting provider has reviewed patient's vital signs: yes DS: Data Data Completed and Pending Labs on day of discharge: Labs from last 24 hours 03/04/25 05:52 WBC 6.75 RBC 4.87 Hgb 13.3 L Hct 40.8 MCV 84 MCH 27 MCHC 33 RDW Coeff of Cyndee 12.0 Plt Count 268 Neut % (Auto) 65.7 Lymph % (Auto) 19.4 L Crane % (Auto) 7.7 Eos % (Auto) 6.7 Baso % (Auto) 0.1 Neut # (Auto) 4.43 Lymph # (Auto) 1.30 Crane # (Auto) 0.50 Eos # (Auto) 0.45 Baso # (Auto) 0.01 Abs Immat Gran (auto) 0.03 Imm/Tot Granulo (auto) 0.4 Sodium 136 Potassium 3.4 L Chloride 98 Carbon Dioxide 27 Anion Gap 11 BUN 10 Creatinine 0.7 Estimated Creat Clear 134.70 Estimated GFR 114 Glucose 104 Calcium 9.3 C-Reactive Protein 3.4 H Imaging MR - Other: Radiologist's impression: Indication: Swelling and cellulitis at the medial ankle. Concern for abscess and osteomyelitis. Technique: MRI of the right ankle performed with and without intravenous contrast (30 milliliters Dotarem). 1.5 robles MRI. Comparison: 02/25/2025 CT of the right ankle Findings: Fluid: Small talonavicular joint effusion with prominent synovitis communicating with a mildly irregular peripherally enhancing fluid collection in the subcutaneous fat of the medial ankle measuring 4 x 0.8 centimeters (/). Bone and cartilage: Confluent abnormal marrow edema, enhancement, and low T1 signal intensity in the talar head, talar neck, and navicular bone. Moderate degenerative change of the Lisfranc joint. Mild degenerative change in the midfoot. Small amount of focal subcortical cystic change in the calcaneus adjacent to the posterior subtalar joint. Mild degenerative change of the tibiotalar joint. Large plantar and small posterior calcaneal enthesophyte. Ligaments: Visualized ligaments are grossly intact. Tendons: Visualized tendons are grossly intact. Sinus tarsi: Edema signal without effacement of the fatty signal in the sinus tarsi. Plantar fascia: Low-grade partial-thickness tearing of the proximal central cord of the plantar fascia at the attachment to the calcaneus. Miscellaneous: Diffuse soft tissue edema throughout the field of view. Diffuse atrophy and edema of the visualized musculature with preferential atrophy of the abductor digiti minimi muscle compatible with a nonacute Covarrubias neuropathy. Impression: 1. Small talonavicular joint effusion with prominent synovitis communicating with a peripherally enhancing fluid collection in the subcutaneous fat of the medial ankle measuring 4 centimeters. Findings are suspicious for septic arthritis and abscess. Consider correlation with aspiration results. 2. Confluent abnormal marrow signal and enhancement in the talar head, talar neck, and navicular bone which is most suspicious for osteomyelitis rather than other etiologies such as contusion or arthropathy given the reported clinical context. 3. Diffuse soft tissue edema throughout the field of view which could represent cellulitis in the appropriate clinical context. 4. Low-grade partial tear of the proximal central cord of the plantar fascia. Large plantar calcaneal enthesophyte. 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 5. Multiple additional findings as detailed above. Discharge Plan Discharge Disposition: Home, Self-Care Date of Admission: 02/25/25 22:20 Attending Provider on Discharge: Fito Bernabe Consulting Providers: Georgina Melendez; Yoanna Blank; Stephane Gabriel; Sofia Tyson Primary Care Provider: Rajesh Iverson Condition: Stable Anticipated Discharge Date/Time: 03/04/25 14:00 Discharge Medications: New potassium chloride 10 mEq Capsule, Extended Release 10 meq PO DAILYWM Qty: 30 0RF cyclobenzaprine 10 mg tablet 10 mg PO TID PRN (Reason: muscle spasm) Qty: 30 0RF oxycodone 5 mg tablet 5 mg PO Q6H PRN (Reason: pain) Qty: 14 0RF Continued chlorthalidone 50 mg tablet 50 mg PO DAILY Qty: 30 2RF losartan 100 mg tablet 100 mg PO DAILY Qty: 30 2RF Eliquis 5 mg tablet 5 mg PO BID Discharge Orders: Discharge Order (Routine); Ordered 03/04/25 Ordered By: Fito Bernabe Patient Education: Cyclobenzaprine (By mouth), Amoxicillin/Clavulanate Potassium (By mouth), Cefazolin (By injection), Deep Sedation (DC), Incision and Drainage (DC) Additional Instructions: Outpatient antibiotic with cefazolin 2 g IV every 8 hours through April 12. PICC line dressing changes - Wednesdays at 1:00pm at the [facility]. THERE IS NO NEED FOR BLOOD MONITORING ON THIS IV ANTIBIOTIC/CEFAZOLIN. Activity Level: Weight Bearing as Tolerated Discharge Diet: Heart Healthy (2 gm sodium, low fat) Follow Up Appointments: Rajesh Iverson MD [Primary Care Provider, Family Practice] - 03/27/25 8:45 am Referral Note: [facility] for follow-up, and check basic metabolic panel. Stephane Gabriel DPM [Staff Physician, Podiatry] Referral Note: Follow-up in 2 days at [facility]. Clinic will call patient with follow-up appointment. Forms: [facility] Info Instructions
--- NOTE | 2025-03-04 15:42 | PC.NURSE ---
Nursing Care Hours: [id number] Pt this shift calm and cooperative, alert and oriented. Pain treated with PO options and elevation. Pedal pulses present. PICC patent and asymptomatic. VSS. Pt and spouse educated on SS of infection to both PICC site and to wound. Set up with [facility] weekly dressing changes. Instructed to call [facility] if integrity of PICC dressing is in question. IV to L arm removed. Pt ambulated off unit in stable condition.
== END 2025-03-04 15:40 | disposition home or self-care (01) | DRG 478 ==
LOC: ED 22:03 → MEDSURG 22:20
PROVIDERS: Family Medicine; Podiatrist; Student in an Organized Health Care Education/Training Program; Admitting Provider Physician Assistant; Emergency Provider Family Medicine; PCP Family Medicine; Visit Provider Family Medicine
PROC: 0J9Q0ZX Drainage of Right Foot Subcutaneous Tissue and Fascia, Open Approach, Diagnostic (ICD-10-PCS; principal; 2025-02-27 17:00)
PROC: 0S9 Lower Joints, Drainage (ICD-10-PCS; principal; 2025-03-01 08:45)
DX: M86.171 Other acute osteomyelitis, right ankle and foot (principal); I82.401 Acute embolism and thrombosis of unspecified deep veins of right lower extremity; M00.071 Staphylococcal arthritis, right ankle and foot; L02.611 Cutaneous abscess of right foot; L03.115 Cellulitis of right lower limb; I82.451 Acute embolism and thrombosis of right peroneal vein; I82.441 Acute embolism and thrombosis of right tibial vein; I82.431 Acute embolism and thrombosis of right popliteal vein; Z68.42 Body mass index [BMI] 45.0-49.9, adult; B95.61 Methicillin susceptible Staphylococcus aureus infection as the cause of diseases classified elsewhere; S96.811A Strain of other specified muscles and tendons at ankle and foot level, right foot, initial encounter; E87.6 Hypokalemia; E66.9 Obesity, unspecified; I10 Essential (primary) hypertension
CPT/HCPCS: 01480; 36415; 36573; 73701; 73723; 80048; 83735; 84132; 85025; 85027; 85610; 85651; 85730; 86140; 87070; 87075; 87081; 87186; 87205; 94761; 99284; 99285; A4221; A9270; A9575; C1751; J0665; J0690; J0696; J1171; J1644; J1650; J2060; J2250; J2405; J2543; J2704; J3010; J3375; J3480; J7030; J7120; Q9967

== ENCOUNTER 2025-03-08 13:49 | Outpatient (CLI) | payer OTHER, SELFPAY | END 2025-03-08 13:50 | disposition home or self-care (01) | LOC: NFLDREF 03-13 18:58 | PROVIDERS: PCP Family Medicine; Referring Provider Family Medicine; Visit Provider Family Medicine | DX: I10 Essential (primary) hypertension (principal) | CPT/HCPCS: 80048 ==